=== PATIENT | female | born 1945 | race Caucasian/White ===

== ENCOUNTER → 2017-01-08 | Outpatient (CLI) | payer OTHER ==
[~2017-01-08] MED LIST: CALC600T14 PO; EPP3/2 IM; FISHOIL PO
[2017-01-08 10:25] LABS: ALT/SGPT 21 U/L (12-78); AST/SGOT 16 U/L (15-37); BLOOD UREA NITROGEN 11 mg/dl (7-18); BUN/CREATININE RATIO 14.9 (10-20); CALCIUM 8.8 mg/dl (8.5-10.1); CARBON DIOXIDE 30 mmol/L (21-32); CHLORIDE 107 mmol/L (98-107); CHOLESTEROL 238 mg/dl (0-200); CREATININE 0.76 mg/dl (0.60-1.20); GLUCOSE 94 mg/dl (70-99); POTASSIUM 4.3 mmol/L (3.5-5.1); SODIUM 142 mmol/L (136-145)
[2017-01-08 10:36] LABS: ALB/GLOB RATIO 1.1 (0.9-2); ALKALINE PHOSPHATASE 93 U/L (45-117); CHOLESTEROL/HDL RATIO 4.7; HDL CHOLESTEROL 51 mg/dl; LDL CHOLESTEROL CALCULATED 157 mg/dl; TRIGLYCERIDES 151 mg/dl (0-150); VERY LOW DENSITY LIPOPROT CALC 30 mg/dl
--- NOTE | 2017-01-13 06:15 | CODING QUERY MEDICAL NECESSITY ---
SUPPORTING DIAGNOSIS NEEDED Dr. Marcus, A supporting diagnosis is required for the test/procedure performed on this patient in order for us to be reimbursed by the patient's insurance. Please provide a supporting diagnosis for the following test/procedure listed below next to the test name along with your signature. *If there is no additional diagnosis for this patient that would support the following test/procedure please document that below next to the test/procedure. Test(s)/Procedure(s) that require a supporting diagnosis: * ([id number]) VITAMIN D ASSAY DIAGNOSIS: DATE OF SERVICE: 01/08/17 Provider Signature: Date: Thank you Reed De Oliveira [facility] Information Management Once completed, please kindly fax back to [phone] For questions please call [phone]
== END | disposition home or self-care (01) ==
LOC: C.LAB 08:49
PROVIDERS: ATTEND Internal Medicine
DX: D12.5 Benign neoplasm of sigmoid colon (principal); M85.80 Other specified disorders of bone density and structure, unspecified site

== ENCOUNTER → 2017-01-22 | Outpatient (CLI) | payer OTHER ==
--- NOTE | 2017-01-23 16:39 | MAMMOGRAPHY REPORT ---
BILATERAL DIGITAL SCREENING MAMMOGRAM WITH CAD: 01/22/2017 CLINICAL HISTORY: Routine screening. Patient has no complaints. TECHNIQUE: Current study was also evaluated with a Computer Aided Detection (CAD) system. Bilatera l CC and MLO views were obtained. COMPARISON: Comparison is made to exams dated: 01/15/2016 mammogram, 12/20/2013 mammogram, 12/21/2014 mammogram, 12/14/2012 mammogram, 12/11/2011 mammogram, and 12/10/2010 mammogram - [facility]. BREAST COMPOSITION: The tissue of both breasts is heterogeneously dense, which may obscure small ma sses. FINDINGS: There is a questionable area of architectural distortion seen within the left medial [address] middle depth on the cc view only, which could represent normal overlapping fibroglandular tissue although spot compression tomosynthesis views and possible breast ultrasound are recommended for fur ther evaluation. The remainder of both breasts are stable compared to prior exams, without suspicious masses, calcifi cations, or areas of architectural distortion noted. Bilateral benign-appearing calcifications are not significantly changed. IMPRESSION: ACR BI-RADS CATEGORY 0: INCOMPLETE EVALUATION: NEED ADDITIONAL IMAGING EVALUATION Questionable architectural distortion in the left medial breast, for which additional imaging evalua tion is recommended. The patient will be called to schedule an appointment. Approximately 10% of breast cancers are not detected with mammography. A negative mammographic repor t should not delay biopsy if a clinically suggestive mass is present. Ese Grubbs M.D. /:01/23/2017 16:35:42 Eddy Current Inspector: Caryl EASLEY(Tana)(M), [facility] letter sent: Addl Imaging 0 BI-RADS Code: ACR BI-RADS Category 0: Incomplete Evaluation: Need Additional Imaging Evaluation
== END | disposition home or self-care (01) ==
LOC: C.MAMM 11:17
PROVIDERS: ATTEND Internal Medicine
DX: Z12.31 Encounter for screening mammogram for malignant neoplasm of breast (principal)

== ENCOUNTER → 2017-01-30 | Outpatient (CLI) | payer OTHER ==
--- NOTE | 2017-01-30 13:04 | MAMMOGRAPHY REPORT ---
UNILATERAL LEFT DIGITAL DIAGNOSTIC MAMMOGRAM TOMOSYNTHESIS WITH CAD: 01/30/2017 CLINICAL HISTORY: Callback from screening mammogram for questionable left breast architectural disto rtion. TECHNIQUE: Breast tomosynthesis in addition to standard 2D mammography was performed. Current study was also evaluated with a Computer Aided Detection (CAD) system. Spot compression left CC and full -field left MLO 2-D and tomosynthesis images were obtained. COMPARISON: Comparison is made to exams dated: 01/22/2017 mammogram, 01/15/2016 mammogram, 12/21/2014 mammogram, 12/20/2013 mammogram, 12/14/2012 mammogram, and 12/11/2011 mammogram - [facility]. BREAST COMPOSITION: The tissue of the left breast is heterogeneously dense, which may obscure small masses. FINDINGS: The previously described area of questionable architectural distortion in the left medial breast on the cc view does not persist on the additional images. No suspicious mass or architectura l distortion is noted in this region on the additional spot compression tomosynthesis images. Findi ngs are benign and compatible with normal overlapping fibroglandular tissue. The remainder of the v isualized left breast demonstrates no suspicious masses, calcifications, or areas of architectural d istortion. IMPRESSION: ACR BI-RADS CATEGORY 2: BENIGN The questionable left breast architectural distortion does not persist on the additional views; find ings are benign and compatible with normal fibroglandular tissue. There is no mammographic evidence of malignancy. A 1 year screening mammogram is recommended. The patient has been verbally notified of the results. Approximately 10% of breast cancers are not detected with mammography. A negative mammographic repor t should not delay biopsy if a clinically suggestive mass is present. Ese Grubbs M.D. /:01/30/2017 10:07:37 [employer] Candy Maker Helper: Caryl Bronw, [facility] letter sent: Normal 1/2 BI-RADS Code: ACR BI-RADS Category 2: Benign
== END | disposition home or self-care (01) ==
LOC: C.MAMM 09:44
PROVIDERS: ATTEND Internal Medicine
DX: R92.8 Other abnormal and inconclusive findings on diagnostic imaging of breast (principal)

== ENCOUNTER → 2018-01-08 | Outpatient (CLI) | payer OTHER ==
[2018-01-08 11:20] LABS: ALBUMIN 3.8 gm/dl (3.4-5.0); ALT/SGPT 21 U/L (12-78); AST/SGOT 16 U/L (15-37); BLOOD UREA NITROGEN 12 mg/dl (7-18); CALCIUM 8.8 mg/dl (8.5-10.1); CARBON DIOXIDE 32 mmol/L (21-32); CREATININE 0.73 mg/dl (0.60-1.20); GLUCOSE 87 mg/dl (70-99); SODIUM 139 mmol/L (136-145)
[2018-01-08 11:23] LABS: ALKALINE PHOSPHATASE 88 U/L (45-117); CHOLESTEROL 228 mg/dl (0-200); LDL CHOLESTEROL CALCULATED 153 mg/dl; TOTAL PROTEIN 7.2 gm/dl (6.4-8.2)
== END | disposition home or self-care (01) ==
LOC: C.LABBC 08:36
PROVIDERS: ATTEND Internal Medicine
DX: E78.5 Hyperlipidemia, unspecified (principal)

== ENCOUNTER → 2018-01-26 | Outpatient (CLI) | payer OTHER ==
--- NOTE | 2018-01-27 07:56 | MAMMOGRAPHY REPORT ---
BILATERAL DIGITAL SCREENING MAMMOGRAM TOMOSYNTHESIS WITH CAD: 01/26/2018 CLINICAL HISTORY: Routine screening. Patient has no complaints. There are diffuse bilateral scattered and grouped TECHNIQUE: Breast tomosynthesis in addition to standard 2D mammography was performed. Current study was also evaluated with a Computer Aided Detection (CAD) system. COMPARISON: Comparison is made to exams dated: 01/30/2017 mammogram, 01/22/2017 mammogram, 01/15/2016 ma mmogram, 12/21/2014 mammogram, 12/20/2013 mammogram, and 12/14/2012 mammogram - [facility]. BREAST COMPOSITION: The tissue of both breasts is heterogeneously dense, which may obscure small mas ses. FINDINGS: There are diffuse bilateral scattered and grouped punctate, amorphous and rim calcification s. Minimal vascular calcification as well. No suspicious mass, architectural distortion or cluster of new, suspicious microcalcifications is seen. IMPRESSION: ACR BI-RADS CATEGORY 1: NEGATIVE There is no mammographic evidence of malignancy. A 1 year screening mammogram is recommended. The pa tient will receive written notification of the results. Approximately 10% of breast cancers are not detected with mammography. A negative mammographic report should not delay biopsy if a clinically suggestive mass is present. Miley Zhu M.D. ay/:01/26/2018 16:39:21 [employer] Software Developer: Caryl Brown, [facility] letter sent: Normal 1/2 BI-RADS Code: ACR BI-RADS Category 1: Negative
== END | disposition home or self-care (01) ==
LOC: C.MAMM 10:39
PROVIDERS: ATTEND Internal Medicine
DX: Z12.31 Encounter for screening mammogram for malignant neoplasm of breast (principal)

== ENCOUNTER → 2018-02-11 | Outpatient (CLI) | payer OTHER | END | disposition home or self-care (01) | LOC: C.MAMM 12:38 | PROVIDERS: ATTEND Internal Medicine | DX: M85.89 Other specified disorders of bone density and structure, multiple sites (principal) ==

== ENCOUNTER 2021-03-24 10:13 | Inpatient (IN) ==
[2021-03-24] MEDS ORDERED: ONDANSETRON INJ 2 MG/ML 2 ML VIAL IV STA (10:31)
[2021-03-24] MEDS ORDERED: KETOROLAC TROMETHAMINE 15 MG/ML VIAL IV STA (10:31)
--- NOTE | 2021-03-24 10:37 | Emergency Department Note ---
History of Present Illness General Chief Complaint: Abdominal Pain Stated Complaint: LOWER ABDOMINAL PAIN, FEVER Time Seen by Provider: 03/24/21 10:21 History of Present Illness Provider Complaint: abdominal pain Onset (ago): 3 day(s) Pain Consistency: constant Location: LLQ, RLQ and suprapubic Radiation: none Severity: moderate Maximum Pain Intensity: 7 Current Pain Intensity: 7 Quality: + stabbing, + aching, + sharp and + dull Relieved By: + nothing Exacerbated By: + nothing Context: no foreign travel, no possible food poisoning, no sick contacts, no recent antibiotic use, no recent surgery/procedure and no recent injury Associated Symptoms: + nausea, + chills, + constipation and + dysuria; no vomiting, no diarrhea, no fever, no hematemesis, no hematochezia, no melena, no hematuria, no anorexia, no syncope, no headache, no neck pain, no back pain, no chest pain, no weakness, no breathing difficulty and no numbness Decreased flatus Home Medications Medication Instructions Recorded Confirmed Type calcium citrate 315 mg-vitamin D3 1 tab PO BID 02/13/20 03/24/21 History 5 mcg (200 unit) tablet epinephrine 0.3 mg/0.3 mL 1 ml SUBCUT UD 02/13/20 03/24/21 History injection, auto-injector omega-3 fatty acids 1,000 mg 1,000 mg PO DAILY 02/13/20 03/24/21 History capsule Allergies Allergy/AdvReac Type Severity Reaction Status Date / Time bee venom protein (honey bee) Allergy Mild Unknown Unverified 03/24/21 10:48 No Known Drug Allergies Allergy Unknown Verified 03/24/21 10:48 Past Med/Surg History Medical History (Updated 03/24/21 @ 12:04 by Oseas Wallace) 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 Hyperlipidemia Osteopenia after menopause Polyp of sigmoid colon Surgical History History of total abdominal hysterectomy Family History Mother Alzheimer disease Breast cancer Thyroid disorder Father Hypertension Stroke Brother Hyperlipidemia type II Prostate cancer Polycythemia vera Denies family history of Ovarian cancer Myocardial infarction Colorectal cancer Social History Smoking Status: Never smoker Second Hand Exposure: No; Hx Alcohol Use: Yes Alcohol type: wine and hard liquor Alcohol Intake Frequency: Monthly or Less Hx Substance Use: No Preferred Language: Tajik Communication Ability: Effective Visual Impairment: Limited Hearing Ability: Normal Director Of Medicare Required: No marital status: Current Living Situation: Spouse current occupational status: retired How many Children do You have: 4 Feels Safe at Home: Yes Childhood Exposure to Second-Hand Smoke: Yes caffeine: Yes Dental Care, Regularly: Yes Physical Activity Frequency: 3-4 Times per Week Seatbelt Use: always Sunscreen Use: No Review of Systems A total of 10 systems reviewed and were otherwise negative Physical Exam Vital Signs: Vital Signs - 24 hr 03/24/21 10:16 03/24/21 10:30 03/24/21 11:02 Temperature 37.0 C Temperature Source Temporal Artery Sc an Pulse Rate 100 H Pulse Rate [Apical ] Pulse Rhythm Regular Pulse Strength Normal Respiratory Rate 18 Respiratory Effort / Characteristics Non-Labored Sponta neous Non-Labored Respiratory Depth Normal Normal Respiratory Patter n Regular Blood Pressure 166/69 H Blood Pressure [Le ft Arm] Blood Pressure Beth n 101 Blood Pressure Beth n [Left Arm] Blood Pressure Pos ition Sitting Pulse Oximetry 94 Oxygen Delivery Me thod Room Air Room Air Sepsis Recent Feve r Within 48 Hours No Sepsis New/Unexpla ined Change in Men tono Status N/A Sepsis Action Take n by Nursing No Action Required 03/24/21 12:09 Temperature Temperature Source Pulse Rate Pulse Rate [Apical ] 90 Pulse Rhythm Pulse Strength Respiratory Rate 18 Respiratory Effort / Characteristics Respiratory Depth Respiratory Patter n Blood Pressure Blood Pressure [Le ft Arm] 145/69 H Blood Pressure Beth n Blood Pressure Beth n [Left Arm] 94 Blood Pressure Pos ition Pulse Oximetry 99 Oxygen Delivery Me thod Room Air Sepsis Recent Feve r Within 48 Hours Sepsis New/Unexpla ined Change in Men tono Status Sepsis Action Take n by Nursing Physical Exam: Physical Exam GENERAL: She is oriented to person, place, and time. She appears well-developed and well-nourished. She does not appear distressed. HENT: Exam performed. -Head: Normocephalic and atraumatic. -Right Ear: External ear normal. No mastoid tenderness. -Left Ear: External ear normal. No mastoid tenderness. -Mouth/Throat: The oropharynx is clear and moist. No trismus in the jaw. No dental abscesses or uvula swelling. No oropharyngeal exudate or tonsillar abscesses. EYES: Conjunctivae and EOM are normal. Pupils are equal, round, and reactive to light. Right eye exhibits no discharge. Left eye exhibits no discharge. No scleral icterus. NECK: Normal range of motion. Neck supple. No JVD present. No spinous process tenderness present. No carotid bruit present. No rigidity. No tracheal deviation and normal range of motion present. No Brudzinski's sign and no Kernig's sign noted. CV: Normal rate, regular rhythm, normal heart sounds and intact distal pulses. There is no peripheral edema. Palpable radial pulses bue. PULM/CHEST: Effort normal and breath sounds normal. No respiratory distress. No stridor. She has no wheezes. She has no rales. -Chest Wall: She exhibits no tenderness. ABD: The abdomen is soft. Bowel sounds are normal. She has no distension. No mass is present. There is tenderness to palpation of the left lower quadrant. There is no rebound, no guarding, no Mejía's sign and no tenderness at McBurney's point. Rovsig negative MUSC/SKEL: Normal range of motion. There is no peripheral edema, tenderness or deformity. LYMPH: No cervical adenopathy. NEURO: She is alert and oriented to person, place, and time. She has normal str ength. No cranial nerve deficit or sensory deficit. Coordination and gait normal. GCS eye subscore is 4. GCS verbal subscore is 5. GCS motor subscore is 6. Cerebellar tests wnl. SKIN: Skin is warm and dry. She is not diaphoretic. PSYCH: She has a normal mood and affect. Behavior is normal. Judgment and thought content normal. Course Course 1021: The patient was evaluated in room A12. A complete history and physical exam was performed Cardiac monitoring: An order was placed for continuous cardiac monitoring. The monitor shows a rate of 100 with sinus rhythm 1204: Vital signs stable. Labs show leukocytosis of 20.4. Imaging shows diverticulitis with diverticular abscess in the pelvis near the vaginal cuff. Abscess is less than 5 cm. Discussed case with general surgery Dr. Pozo who states no need for surgical intervention or transfer to treat the patient with antibiotics for the diverticular abscess. He recommends admission to medicine. Dr. Pozo came to bedside and evaluated the patient. Patient is agreement with the plan. Zosyn ordered for the patient. Patient will be admitted to the [facility] Yoli matute. Administered Medications Sodium Chloride (Nss) 500 mls @ 125 mls/hr IV .Q4H JAZMINE Stop: 04/23/21 10:44 Last Admin: 03/24/21 10:58 Dose: 125 mls/hr Documented by: [id number] Piperacillin Sod/Tazobactam Sod (Zosyn) 4.5 gm in 120 mls @ 240 mls/hr IV NOW ONE Stop: 03/24/21 12:18 Last Admin: 03/24/21 12:06 Dose: 240 mls/hr Documented by: [id number] Discontinued Medications Ioversol (Optiray 320 100ml) 88 ml IV ONCE ONE Stop: 03/24/21 10:54 Last Admin: 03/24/21 10:54 Dose: 88 ml Documented by: [id number] Ketorolac Tromethamine (Ketorolac Tromethamine 15 Mg/Ml Vial) 15 mg IV NOW STA Stop: 03/24/21 10:32 Last Admin: 03/24/21 10:58 Dose: 15 mg Documented by: [id number] Ondansetron HCl (Ondansetron Inj 2 Mg/Ml 2 Ml Vial) 4 mg IV NOW STA Stop: 03/24/21 10:32 Last Admin: 03/24/21 10:58 Dose: 4 mg Documented by: [id number] Medical Decision Making Laboratory Data Result diagrams: 03/24/21 10:45 03/24/21 10:45 Lab Results 03/24/21 03/24/21 03/24/21 Range/Units 10:45 10:45 10:45 WBC 20.44 H (4.8-10.8) K/uL RBC 4.16 L (4.2-5.4) M/uL Hgb 11.8 L (12.0-16.0) g/dL Hct 35.9 L (37-47) % MCV 86.3 (80-100) fL MCH 28.4 (25-34) pg MCHC 32.9 (32-36) g/dL RDW Std Deviation 41.2 (36.4-46.3) fL RDW Coeff of Tc 13.1 (11.5-14.5) % Plt Count 405 H (130-400) K/uL MPV 9.1 (7.4-10.4) fL Immature Gran % (Auto) 0.4 % Neut % (Auto) 83.2 % Lymph % (Auto) 7.8 % Summit % (Auto) 8.4 % Eos % (Auto) 0.1 % Baso % (Auto) 0.1 % Neut # (Auto) 17.02 H (1.4-6.5) K/uL Lymph # (Auto) 1.59 (1.2-3.4) K/uL Summit # (Auto) 1.71 H (0.11-0.59) K/uL Eos # (Auto) 0.02 (0-0.5) K/uL Baso # (Auto) 0.02 (0-0.2) K/uL Immature Gran # (Auto) 0.08 H (0.00-0.02) K/uL Sodium 135 L (136-145) mmol/L Potassium 3.7 (3.5-5.1) mmol/L Chloride 101 (98-107) mmol/L Carbon Dioxide 30 (21-32) mmol/L Anion Gap 4.0 (3-11) BUN 10 (7-18) mg/dl Creatinine 0.73 (0.6-1.2) mg/dl Est Cr Clr Drug Dosing 61.9 ml/min Est GFR ( Amer) 92.1 ml/min Est GFR (Non-Af Amer) 79.4 ml/min BUN/Creatinine Ratio 13.7 (10-20) Glucose 143 H (70-99) mg/dl Calcium 8.8 (8.5-10.1) mg/dl Total Bilirubin 0.5 (0.2-1) mg/dl Direct Bilirubin 0.1 (0-0.2) mg/dl AST 11 L (15-37) U/L ALT 16 (12-78) U/L Alkaline Phosphatase 93 (45-117) U/L Total Protein 7.8 (6.4-8.2) gm/dl Albumin 3.3 L (3.4-5.0) gm/dl Lipase 74 (73-393) U/L Urine Color Yellow Urine Appearance Cloudy A (Clear) Urine pH 8.0 H (4.5-7.5) Ur Specific Notrees 1.015 (1.000-1.030) Urine Protein Trace H (Negative) Urine Glucose (UA) Negative (Negative) Urine Ketones Trace H (Negative) Urine Blood 1+ H (Negative) Urine Nitrite Negative (Negative) Urine Bilirubin Negative (Negative) Urine Urobilinogen Negative (Negative) Ur Leukocyte Esterase Negative (Negative) Urine WBC (Auto) 1-5 (0-5) /hpf Urine RBC (Auto) 10-30 H (0-4) /hpf U Hyaline Cast (Auto) 1-5 (0-5) /lpf U Epithel Cells (Auto) >30 H (0-5) /lpf Urine Bacteria (Auto) Negative (Negative) Imaging Data Radiologist's Impression: Abdomen/Pelvis CT 03/24/21 10:26 CT SCAN OF THE ABDOMEN AND PELVIS WITH IV CONTRAST CLINICAL HISTORY: Left lower quadrant abdominal pain. COMPARISON STUDY: No priors. TECHNIQUE: Following the IV administration of 88 cc of Optiray 320, CT scan of the abdomen and pelvis is performed from the lung bases to the proximal femora. Images are reviewed in the axial, sagittal, and coronal planes. IV contrast was administered without complication. A dose lowering technique was utilized adhering to the principles of ALARA. CT DOSE: 445.46 mGy.cm FINDINGS: Lung bases: The heart is mildly enlarged and without pericardial effusion. The lung bases are clear noting bibasilar scarring/atelectasis. Liver: The contrast-enhanced liver is elongated suggesting Stormy's lobe variant anatomy. The liver is normal in contour and attenuation. There is no intrahepatic biliary ductal dilatation. The hepatic veins and portal veins are patent. Gallbladder: Unremarkable. Spleen: Normal in size and attenuation. Pancreas: Unremarkable. Adrenal glands: Unremarkable. Kidneys: The contrast enhanced kidneys are normal in size and without hydr onephrosis. The kidneys enhance symmetrically. Abdominal vasculature: The abdominal aorta is normal in course and caliber noting advanced atherosclerotic calcification. Bowel: There is advanced diverticulosis of left colon. There is significant wall thickening with pericolonic inflammation and fluid involving the sigmoid consistent with acute diverticulitis. There is a 3.1 x 3.9 x 3.1 cm diverticular abscess in the deep pelvis along the inferior aspect of the sigmoid colon and abutting the vaginal cuff. This is best seen on image #303. The appendix is well-visualized and normal. Peritoneum: There is no intraperitoneal free air. Trace free fluid is seen in the pelvis. Lymphadenopathy: None. Pelvic viscera: Thickening of the left posterolateral bladder wall is likely related to adjacent diverticulitis. The uterus is surgically absent. No adnexal lesion is seen. Skeletal structures: The skeletal structures are osteopenic. There is mild to moderate lumbosacral spondylosis. Sclerotic change is noted in the pubic symphysis. No lytic or blastic lesions are seen. IMPRESSION: 1. Advanced colonic diverticulosis with evidence of acute sigmoid diverticulitis. 2. There is a 3.9 cm diverticular abscess in the deep pelvis between the sigmoid colon and the vaginal cuff. 3. No intraperitoneal free air is identified. 4. Left posterolateral bladder wall thickening is likely related to adjacent diverticulitis. 5. Additional findings as above. ACT 112: Negative or not required by law. Electronically signed by: Fredy Faustin M.D. 03/24/2021 11:45 AM MDM Narrative Vital signs stable. Labs show leukocytosis of 20.4. Imaging shows diverticulitis with diverticular abscess in the pelvis near the vaginal cuff. Abscess is less than 5 cm. Discussed case with general surgery Dr. Pozo who states no need for surgical intervention or transfer to treat the patient with antibiotics for the diverticular abscess. He recommends admission to medicine. Dr. Pozo came to bedside and evaluated the patient. Patient is agreement with the plan. Zosyn ordered for the patient. Patient will be admitted to the [facility] Dr. Kent service. Impression & Plan Diverticulitis of intestine with abscess Discharge Plan Visit Data Chief Complaint: Abdominal Pain Stated Complaint: LOWER ABDOMINAL PAIN, FEVER ED Provider: Oseas Wallace Discharge Problem: Diverticulitis of intestine with abscess Patient Disposition: Admitted As Inpatient Forms Stand Alone Forms: My [facility] Prescriptions Prescriptions: No Action calcium citrate-vitamin D3 315-200 mg-unit tablet 1 tab PO BID RF: 0 epinephrine 0.3 mg/0.3 mL auto-injector 1 ml subcut UD RF: 0 omega-3 fatty acids 1,000 mg capsule 1,000 mg PO DAILY RF: 0 Referrals Referrals: Gonzales Marcus MD [Primary Care Provider] - Discharge Problem: Diverticulitis of intestine with abscess Qualifiers: Diverticulitis site: large intestine Diverticulitis bleeding: unspecified blee ding status Qualified Code(s): K57.20 - Diverticulitis of large intestine with perforation and abscess without bleeding
[2021-03-24] MEDS ORDERED: SODIUM CHLORIDE 0.9% 500 ML IV SCH (10:45)
[2021-03-24] MEDS ORDERED: OPTIRAY 320 100ml IV ONE (10:53)
[2021-03-24 10:58] LABS: Basophils # (auto) 0.02 K/uL (0-0.2); Basophils % (auto) 0.1 %; Eosinophils # (auto) 0.02 K/uL (0-0.5); Eosinophils % (auto) 0.1 %; Hematocrit (blood only) 35.9 % (37-47); Hemoglobin 11.8 g/dL (12.0-16.0); Immature Granulocytes # (auto) 0.08 K/uL (0.00-0.02); Immature Granulocytes % (auto) 0.4 %; Lymphocytes # (auto) 1.59 K/uL (1.2-3.4); Lymphocytes % (auto) 7.8 %; Mean Corpuscular Hemoglobin 28.4 pg (25-34); Mean Corpuscular Hgb Conc 32.9 g/dL (32-36); Mean Corpuscular Volume 86.3 fL (80-100); Mean Platelet Volume 9.1 fL (7.4-10.4); Monocytes # (auto) 1.71 K/uL (0.11-0.59); Monocytes % (auto) 8.4 %; Neutrophils # (auto) 17.02 K/uL (1.4-6.5); Neutrophils % (auto) 83.2 %; Platelet Count 405 K/uL (130-400); RDW Coefficient of Variation 13.1 % (11.5-14.5); RDW Standard Deviation 41.2 fL (36.4-46.3); Red Blood Count 4.16 M/uL (4.2-5.4); White Blood Count 20.44 K/uL (4.8-10.8)
[2021-03-24 11:15] LABS: Appearance Urine Cloudy (Clear); Bacteria Urine Automated Negative (Negative); Bilirubin Urine Negative (Negative); Blood Urine 1+ (Negative); Color Urine Yellow; Epithelial Cell Urine Auto >30 /lpf (0-5); Glucose Urine UA Negative (Negative); Ketones Urine Trace (Negative); Leukocyte Esterase Urine Negative (Negative); Nitrite Urine Negative (Negative); Specific Gravity Urine 1.015 (1.000-1.030); Urobilinogen Urine Negative (Negative)
[2021-03-24 11:17] LABS: Est GFR (African American) 92.1 ml/min; Potassium 3.7 mmol/L (3.5-5.1)
[2021-03-24 11:18] LABS: Albumin Level 3.3 gm/dl (3.4-5.0); BUN Creatinine Ratio 13.7 (10-20); Bilirubin Direct 0.1 mg/dl (0-0.2); Calcium 8.8 mg/dl (8.5-10.1); Creatinine Clr Calc Pharmacy 61.9 ml/min; Est GFR (Non-African American) 79.4 ml/min
[2021-03-24 11:20] LABS: Bilirubin,Total 0.5 mg/dl (0.2-1); Total Protein 7.8 gm/dl (6.4-8.2)
--- NOTE | 2021-03-24 11:46 | CT Scan Report ---
CT SCAN OF THE ABDOMEN AND PELVIS WITH IV CONTRAST CLINICAL HISTORY: Left lower quadrant abdominal pain. COMPARISON STUDY: No priors. TECHNIQUE: Following the IV administration of 88 cc of Optiray 320, CT scan of the abdomen and pelvi s is performed from the lung bases to the proximal femora. Images are reviewed in the axial, sagittal , and coronal planes. IV contrast was administered without complication. A dose lowering technique wa s utilized adhering to the principles of ALARA. CT DOSE: 445.46 mGy.cm FINDINGS: Lung bases: The heart is mildly enlarged and without pericardial effusion. The lung bases are clear n oting bibasilar scarring/atelectasis. Liver: The contrast-enhanced liver is elongated suggesting Stormy's lobe variant anatomy. The liver i s normal in contour and attenuation. There is no intrahepatic biliary ductal dilatation. The hepatic veins and portal veins are patent. Gallbladder: Unremarkable. Spleen: Normal in size and attenuation. Pancreas: Unremarkable. Adrenal glands: Unremarkable. Kidneys: The contrast enhanced kidneys are normal in size and without hydronephrosis. The kidneys enh ance symmetrically. Abdominal vasculature: The abdominal aorta is normal in course and caliber noting advanced atheroscle rotic calcification. Bowel: There is advanced diverticulosis of left colon. There is significant wall thickening with theodora colonic inflammation and fluid involving the sigmoid consistent with acute diverticulitis. There is a 3.1 x 3.9 x 3.1 cm diverticular abscess in the deep pelvis along the inferior aspect of the sigmoid colon and abutting the vaginal cuff. This is best seen on image #303. The appendix is well-visualize d and normal. Peritoneum: There is no intraperitoneal free air. Trace free fluid is seen in the pelvis. Lymphadenopathy: None. Pelvic viscera: Thickening of the left posterolateral bladder wall is likely related to adjacent dive rticulitis. The uterus is surgically absent. No adnexal lesion is seen. Skeletal structures: The skeletal structures are osteopenic. There is mild to moderate lumbosacral sp ondylosis. Sclerotic change is noted in the pubic symphysis. No lytic or blastic lesions are seen. IMPRESSION: 1. Advanced colonic diverticulosis with evidence of acute sigmoid diverticulitis. 2. There is a 3.9 cm diverticular abscess in the deep pelvis between the sigmoid colon and the vagina l cuff. 3. No intraperitoneal free air is identified. 4. Left posterolateral bladder wall thickening is likely related to adjacent diverticulitis. 5. Additional findings as above. ACT 112: Negative or not required by law. Electronically signed by: Fredy Faustin M.D. 03/24/2021 11:45 AM
[2021-03-24] MEDS ORDERED: PIPERACILLIN/TAZOBACTAM 4.5 GM/120 ML BAG IV ONE (11:49)
[2021-03-24 12:01] LABS: Protein Urine Trace (Negative)
--- NOTE | 2021-03-24 12:14 | Surgery Consultation ---
Date of Consultation March 24, 2021 Assessment & Plan (1) Diverticulitis of intestine with abscess: Patient with contained diverticular abscess in the pelvis-this is not easily amenable to IR Normal plan of treatment would be admission to the hospital with bowel rest and intravenous antibiotics for likely at least 4 to 5 days possibly longer with the abscess She should be n.p.o. for 48 hours on ice only and then we may consider clear liquids I have discussed this with the patient's daughter Tawnya. We will try to avoid urgent surgery which may require colostomy History of Present Illness History of Present Illness 76-year-old female who is being evaluated in the emergency room for left lower quadrant pain Her white blood cell count is 20,000 Her CAT scan shows evidence of significant diverticulosis and diverticulitis with a 3.9 cm abscess in the deep pelvis between the sigmoid colon and bladder Allergies Allergy/AdvReac Type Severity Reaction Status Date / Time bee venom protein (honey bee) Allergy Mild Unknown Unverified 03/24/21 10:48 No Known Drug Allergies Allergy Unknown Verified 03/24/21 10:48 Home Medications Medication Instructions Recorded Confirmed Type calcium citrate 315 mg-vitamin D3 1 tab PO BID 02/13/20 03/24/21 History 5 mcg (200 unit) tablet epinephrine 0.3 mg/0.3 mL 1 ml SUBCUT UD 02/13/20 03/24/21 History injection, auto-injector omega-3 fatty acids 1,000 mg 1,000 mg PO DAILY 02/13/20 03/24/21 History capsule Patient History Medical History (Updated 03/24/21 @ 12:04 by Oseas Wallace) 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 Hyperlipidemia Osteopenia after menopause Polyp of sigmoid colon Surgical History History of total abdominal hysterectomy Family History Mother Alzheimer disease Breast cancer Thyroid disorder Father Hypertension Stroke Brother Hyperlipidemia type II Prostate cancer Polycythemia vera Denies family history of Ovarian cancer Myocardial infarction Colorectal cancer Social History Smoking Status: Never smoker Second Hand Exposure: No; Hx Alcohol Use: Yes Alcohol type: wine and hard liquor Alcohol Intake Frequency: Monthly or Less Hx Substance Use: No Preferred Language: Samoan Communication Ability: Effective Visual Impairment: Limited Hearing Ability: Normal Crane Hooker Required: No marital status: Current Living Situation: Spouse current occupational status: retired How many Children do You have: 4 Feels Safe at Home: Yes Childhood Exposure to Second-Hand Smoke: Yes caffeine: Yes Dental Care, Regularly: Yes Physical Activity Frequency: 3-4 Times per Week Seatbelt Use: always Sunscreen Use: No Review of Systems Review of Systems: All systems reviewed & are unremarkable except as noted in HPI & below Physical Exam Physical Exam: Patient does have left lower quadrant pain to deep palpation She is not significantly distended Constitutional: well developed; no acute distress Eyes: + anicteric sclerae Respiratory: normal respiratory effort; no respiratory distress Cardiovascular: Rate/Rhythm: + tachycardic Gastrointestinal (Abdomen): Inspection/Auscultation: abdomen not distended Musculoskeletal: Head/Neck/Chest: head atraumatic Skin: no rashes, warm and dry Neurologic: awake Psychiatric: Orientation: alert Results & Data ([facility]) Vital Signs (Past 12 Hours) Vital Signs Temp Pulse Pulse Resp BP BP Pulse Ox 03/24/21 12:09 90 18 145/69 H 99 03/24/21 10:16 37.0 C 100 H 18 166/69 H 94 I did review her CAT scan and laboratories PG Care Time/CCT Total # of Minutes Spent Total Time Spent with Patient: Total time spent is greater than 50% in coordination of care (as documented) at patient's floor/unit and/or counseling patient: Coding Level of Care Code 78776 Inpt Consult Level 4 Diagnoses Diverticulitis of intestine with abscess K57.20 Diverticulitis bleeding: unspecified bleeding status Diverticulitis site: large intestine (1) Diverticulitis of intestine with abscess Diverticulitis bleeding: unspecified bleeding status Diverticulitis site: large intestine Qualified Code(s): K57.20 - Diverticulitis of large intestine with perforation and abscess without bleeding
--- NOTE | 2021-03-24 12:16 | History & Physical Report ---
Date of Service March 24, 2021 Assessment & Plan (1) Diverticulitis of intestine with abscess: Zosyn 3.375g IV Q8H NPO LR @ 125ml/hr Consult general surgery Follow up colonoscopy with Dr Reyes 4-6 weeks after discharge. (2) DVT prophylaxis: Lovenox 40mg SQ daily Admission and Anticipated Discharge Date Admission Date: March 24, 2021 History of Present Illness Chief Complaint: Abdominal pain Primary Care Provider: Gonzales Marcus MD Darline Mathew is a 76-year-old female who presents to the ER with abdominal pain for the past 2 days. Associated fevers and chills, mild constipation. No diarrhea, melena, bright red blood in stool. She has had no episodes of diverticulitis in the past. She reports having a colonoscopy [address] Reyes and found polyps at that time. In the ER CT abdomen pelvis was concerning for 3.9 cm diverticular abscess with acute sigmoid diverticulitis. WBC 20.44. She was given Zosyn 4.5 g. She was seen by surgery and recommended nonsurgical management at this time. She was referred to medicine for admission ongoing management of diverticulitis. Allergies Allergy/AdvReac Type Severity Reaction Status Date / Time bee venom protein (honey bee) Allergy Mild Unknown Unverified 03/24/21 10:48 No Known Drug Allergies Allergy Unknown Verified 03/24/21 10:48 Home Medications Medication Instructions Recorded Confirmed Type calcium citrate 315 mg-vitamin D3 1 tab PO BID 02/13/20 03/24/21 History 5 mcg (200 unit) tablet epinephrine 0.3 mg/0.3 mL 1 ml SUBCUT UD 02/13/20 03/24/21 History injection, auto-injector omega-3 fatty acids 1,000 mg 1,000 mg PO DAILY 02/13/20 03/24/21 History capsule Past Med/Surg History Medical History (Updated 03/24/21 @ 19:48 by Marcus Kent MD) 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 Hyperlipidemia Osteopenia after menopause Polyp of sigmoid colon Surgical History History of total abdominal hysterectomy Family History Mother Alzheimer disease Breast cancer Thyroid disorder Father Hypertension Stroke Brother Hyperlipidemia type II Prostate cancer Polycythemia vera Denies family history of Ovarian cancer Myocardial infarction Colorectal cancer Social History Smoking Status: Never smoker Second Hand Exposure: No; Do You Dip or Chew Tobacco: No; Hx Alcohol Use: No Hx Substance Use: No Preferred Language: Croatian Communication Ability: Effective Visual Impairment: Limited Hearing Ability: Normal Necktie Operator Pockets And Pieces Required: No Beliefs That Will Affect Care: None marital status: Current Living Situation: Spouse Current Living Situation Comment: with parkinsons current occupational status: retired How many Children do You have: 4 Feels Safe at Home: Yes Safety Concerns: Feels Safe At This Time Childhood Exposure to Second-Hand Smoke: Yes caffeine: Yes Dental Care, Regularly: Yes Physical Activity Frequency: 3-4 Times per Week Seatbelt Use: always Sunscreen Use: No Assistive Devices: Glasses Review of Systems Review of Systems: All systems reviewed & are unremarkable except as noted in HPI & below Physical Exam Constitutional: WD/WN, vitals as above Eyes: + anicteric sclerae; normal pupil size ENMT: external ear and nose normal, oropharynx normal Respiratory: normal respiratory effort, lungs clear to auscultation Cardiovascular: RRR, no murmur, no edema Gastrointestinal (Abdomen): Inspection/Auscultation: abdomen normal to inspection; abdomen not distended Percussion/Palpation: + abdomen tender (LLQ pain without rebound tenderness) and abdomen soft; no guarding and abdomen not rigid Musculoskeletal: no cyanosis or clubbing, extremities motor strength 5/5 Skin: no rashes, warm and dry Neurologic: moves all extremities and awake; no focal motor deficits and not confused Psychiatric: A+Ox3, euthymic affect Genitourinary: no CVA tenderness Results & Data Results & Data ([facility]) Vital Signs (Past 12 Hours) Vital Signs Temp Pulse Pulse Resp BP BP Pulse Ox 03/24/21 12:09 90 18 145/69 H 99 03/24/21 10:16 37.0 C 100 H 18 166/[address] SCAN OF THE ABDOMEN AND PELVIS WITH IV CONTRAST IMPRESSION: 1. Advanced colonic diverticulosis with evidence of acute sigmoid diverticulitis. 2. There is a 3.9 cm diverticular abscess in the deep pelvis between the sigmoid colon and the vaginal cuff. 3. No intraperitoneal free air is identified. 4. Left posterolateral bladder wall thickening is likely related to adjacent diverticulitis. 5. Additional findings as above. Medications Administered ER medications given: NSS 500 mL @ 125ml/hr Toradol 50 mg IV Code Status & VTE Plan Code Status Full VTE Prophylaxis Plan VTE Prophylaxis will be ordered: Yes PG Care Time/CCT Total # of Minutes Spent Total Time Spent with Patient: Total time spent is greater than 50% in coordination of care (as documented) at patient's floor/unit and/or counseling patient: Coding Level of Care Code 70516 Initial Inpt Care Lvl 2 Diagnoses Diverticulitis of intestine with abscess K57.20 Diverticulitis bleeding: unspecified bleeding status Diverticulitis site: large intestine DVT prophylaxis Z29.9 (1) Diverticulitis of intestine with abscess Diverticulitis bleeding: unspecified bleeding status Diverticulitis site: large intestine Qualified Code(s): K57.20 - Diverticulitis of large intestine with perforation and abscess without bleeding
[2021-03-24] MEDS ORDERED: PIPERACILL/TAZOBAC CONSULT ACTIVE PRN (14:19)
[2021-03-24] MEDS: LACTATED RINGER'S 1,000 ML IV SCH ×2 (14:50→21:58)
[2021-03-24] MEDS: PIPERACILLIN/TAZOBACTAM 3.375 GM in DEXTROSE 5% 100 ML IV SCH (17:27)
[2021-03-24] MEDS: ENOXAPARIN INJ 40 MG/0.4 ML SYR SQ SCH (21:07)
[2021-03-24] MEDS ORDERED: HYDROmorphone INJ 0.5 MG/0.5 ML SYR IV PRN (21:41)
[2021-03-24] MEDS: ACETAMINOPHEN 1,000 MG/100 ML VIAL IV PRN (22:07)
[2021-03-25] MEDS: PIPERACILLIN/TAZOBACTAM 3.375 GM in DEXTROSE 5% 100 ML IV SCH ×3 (01:20→17:55)
[2021-03-25] MEDS: LACTATED RINGER'S 1,000 ML IV SCH (04:59)
--- NOTE | 2021-03-25 05:21 | Surgery Progress Note ---
Date of Service March 25, 2021 Assessment & Plan (1) Diverticulitis of intestine with abscess: Patient has been admitted on the hospitalist service. Care will continue as follows: Continue analgesics Continue bowel rest with n.p.o. status allowing only ice chips. Continue antibiotics. She is currently receiving Zosyn day #2 Continue to follow serial labs. Labs for this morning are currently pending We will continue to monitor the patient's progress. If clinical improvement is noted over the next several days you may consider advancing her diet beginning with clear liquids. Lovenox is in place for DVT prevention Admission and Anticipated Discharge Date Admission Date: March 24, 2021 Supervising Physician Co-Signing Physician Notes Patient's vital signs are stable and she is feeling better Continued limited p.o. with ice only today Continue IV antibiotics No other changes in surgical management Subjective Patient is resting comfortably in bed. She denies any fevers, shakes, chills. She denies any nausea or vomiting. She does note some pain in the left lower quadrant of her abdomen but notes that this is improved compared to what was noted at time of admission. Physical Exam Gastrointestinal (Abdomen): Abdomen is soft and nondistended. Bowel sounds are hypoactive. There is no rebound tenderness or guarding. Palpation is noted with pain in the left lower quadrant. Results & Data ([facility]) Vital Signs (Past 12 Hours) Vital Signs Temp Pulse Resp BP Pulse Ox 03/24/21 22:00 37.1 C 89 16 157/72 H 94 PG Care Time/CCT Total # of Minutes Spent Total Time Spent with Patient: Total time spent is greater than 50% in coordination of care (as documented) at patient's floor/unit and/or counseling patient: Coding Level of Care Code 68572 Subseq Hosp Care Lvl 1 Diagnoses Diverticulitis of intestine with abscess K57.20 Diverticulitis bleeding: unspecified bleeding status Diverticulitis site: large intestine (1) Diverticulitis of intestine with abscess Diverticulitis bleeding: unspecified bleeding status Diverticulitis site: large intestine Qualified Code(s): K57.20 - Diverticulitis of large intestine with perforation and abscess without bleeding
[2021-03-25 05:41] LABS: Basophils # (auto) 0.03 K/uL (0-0.2); Basophils % (auto) 0.2 %; Eosinophils # (auto) 0.06 K/uL (0-0.5); Eosinophils % (auto) 0.4 %; Hematocrit (blood only) 30.7 % (37-47); Hemoglobin 9.9 g/dL (12.0-16.0); Immature Granulocytes # (auto) 0.04 K/uL (0.00-0.02); Immature Granulocytes % (auto) 0.2 %; Lymphocytes # (auto) 2.49 K/uL (1.2-3.4); Lymphocytes % (auto) 15.4 %; Mean Corpuscular Hemoglobin 28.6 pg (25-34); Mean Corpuscular Hgb Conc 32.2 g/dL (32-36); Mean Corpuscular Volume 88.7 fL (80-100); Mean Platelet Volume 8.9 fL (7.4-10.4); Monocytes # (auto) 1.27 K/uL (0.11-0.59); Monocytes % (auto) 7.9 %; Neutrophils # (auto) 12.26 K/uL (1.4-6.5); Neutrophils % (auto) 75.9 %; Platelet Count 360 K/uL (130-400); RDW Coefficient of Variation 13.1 % (11.5-14.5); RDW Standard Deviation 42.6 fL (36.4-46.3); Red Blood Count 3.46 M/uL (4.2-5.4); White Blood Count 16.15 K/uL (4.8-10.8)
[2021-03-25 06:12] LABS: BUN Creatinine Ratio 14.7 (10-20); Calcium 8.2 mg/dl (8.5-10.1); Creatinine Clr Calc Pharmacy 75.3 ml/min; Est GFR (African American) 101.9 ml/min; Est GFR (Non-African American) 87.9 ml/min; Potassium 3.8 mmol/L (3.5-5.1)
--- NOTE | 2021-03-25 08:14 | Hospitalist Progress Note ---
Date of Service March 25, 2021 Assessment & Plan (1) Diverticulitis of intestine with abscess: * CT with diverticulitis with 3.9cm sigmoid abscess * Zosyn 3.375g IV Q8H (day 2 of therapy) * WBC 20.4k --> 16.1k. Afebrile. No blood cx drawn * Plt 405-> 360. * NPO except sips/chips * Acetaminophen, morphine IV prn pain * Zofran IV prn nausea/vomiting * LR @ 125ml/hr -- will decrease to 100cc/hr and will add 20mew KCl * Consult general surgery -- allowing ice chips today. * --if improvement in next couple of days, will re-institute diet and advance as tolerated * Daily labs/electrolyte replacement as needed * Follow up colonoscopy with Dr Reyes 4-6 weeks after discharge. (2) Leukocytosis: * Improving * See above, Zosyn (3) Osteopenia after menopause: * Noted * Resume calcium citrate once taking PO (4) DVT prophylaxis: * Lovenox 40mg SQ daily Dispo: continued inpatient stay Admission and Anticipated Discharge Date Admission Date: March 24, 2021 Subjective Patient evaluated this morning patient evaluated this morning. She states her abdominal pain is resolved and she is not having any at the moment. She denies any nausea or vomiting. She had small bowel movement this morning, small, formed brown. She is afebrile. Was seen by general surgery this morning and okay to get ice chips. Discussed abscess on imaging and possible need for IR refractory antibiotic therapy. Discussed monitoring her for today and possible starting clear liquids in the morning if abdominal pain continues to be resolved and condition improves with the hopes of eventual advancement to full liquid and then low fiber which will continue for 2 weeks. She states prior colonoscopy with Dr. Reyes and is due for repeatwill need to have one done 6 to 8 weeks post current episode. No fever, chills, chest pain, shortness of breath, abdominal pain, nausea, or v omiting, dysuria at this time/ Questions concerns addressed Review of Systems Review of Systems: All systems reviewed & are unremarkable except as noted in HPI & below Physical Exam Constitutional: WD/WN, vitals as above Eyes: + anicteric sclerae; normal pupil size ENMT: external ear and nose normal, oropharynx normal Neck: normal visual inspection and trachea midline Respiratory: normal respiratory effort, lungs clear to auscultation Cardiovascular: RRR, no murmur, no edema Gastrointestinal (Abdomen): Inspection/Auscultation: abdomen normal to inspection; abdomen not distended Percussion/Palpation: abdomen soft; abdomen nontender, no guarding and abdomen not rigid Musculoskeletal: no cyanosis or clubbing, extremities motor strength 5/5 Skin: no rashes, warm and dry Neurologic: moves all extremities and awake; no focal motor deficits and not confused Psychiatric: A+Ox3, euthymic affect Genitourinary: no CVA tenderness Results & Data Results & Data ([facility]) Vital Signs (Past 12 Hours) Vital Signs Temp Pulse Resp BP Pulse Ox 03/25/21 07:25 36.8 C 87 18 135/74 93 03/24/21 22:00 37.1 C 89 16 157/72 H 94 Laboratory Results 03/25/21 03/25/21 03/24/21 Range/Units 05:22 05:22 12:10 WBC 16.15 H (4.8-10.8) K/uL RBC 3.46 L (4.2-5.4) M/uL Hgb 9.9 L (12.0-16.0) g/dL Hct 30.7 L (37-47) % MCV 88.7 (80-100) fL MCH 28.6 (25-34) pg MCHC 32.2 (32-36) g/dL RDW Std Deviation 42.6 (36.4-46.3) fL RDW Coeff of Tc 13.1 (11.5-14.5) % Plt Count 360 (130-400) K/uL MPV 8.9 (7.4-10.4) fL Immature Gran % (Auto) 0.2 % Neut % (Auto) 75.9 % Lymph % (Auto) 15.4 % [place]man % (Auto) 7.9 % Eos % (Auto) 0.4 % Baso % (Auto) 0.2 % Neut # (Auto) 12.26 H (1.4-6.5) K/uL Lymph # (Auto) 2.49 (1.2-3.4) K/uL Kaufman # (Auto) 1.27 H (0.11-0.59) K/uL Eos # (Auto) 0.06 (0-0.5) K/uL Baso # (Auto) 0.03 (0-0.2) K/uL Immature Gran # (Auto) 0.04 H (0.00-0.02) K/uL Sodium 138 (136-145) mmol/L Potassium 3.8 (3.5-5.1) mmol/L Chloride 105 (98-107) mmol/L Carbon Dioxide 30 (21-32) mmol/L Anion Gap 3.0 (3-11) BUN 9 (7-18) mg/dl Creatinine 0.60 (0.6-1.2) mg/dl Est Cr Clr Drug Dosing 75.3 ml/min Est GFR ( Amer) 101.9 ml/min Est GFR (Non-Af Amer) 87.9 ml/min BUN/Creatinine Ratio 14.7 (10-20) Glucose 94 (70-99) mg/dl Calcium 8.2 L (8.5-10.1) mg/dl Total Bilirubin (0.2-1) mg/dl Direct Bilirubin (0-0.2) mg/dl AST (15-37) U/L ALT (12-78) U/L Alkaline Phosphatase (45-117) U/L Total Protein (6.4-8.2) gm/dl Albumin (3.4-5.0) gm/dl Lipase (73-393) U/L Urine Color Urine Appearance (Clear) Urine pH (4.5-7.5) Ur Specific [place] (1.000-1.030) Urine Protein (Negative) Urine Glucose (UA) (Negative) Urine Ketones (Negative) Urine Blood (Negative) Urine Nitrite (Negative) Urine Bilirubin (Negative) Urine Urobilinogen (Negative) Ur Leukocyte Esterase (Negative) Urine WBC (Auto) (0-5) /hpf Urine RBC (Auto) (0-4) /hpf U Hyaline Cast (Auto) (0-5) /lpf U Epithel Cells (Auto) (0-5) /lpf Urine Bacteria (Auto) (Negative) COVID-19 Eval Order SARS-CoV-2 (PCR) NEGATIVE (Negative) 03/24/21 03/24/21 03/24/21 Range/Units 12:10 10:45 10:45 WBC (4.8-10.8) K/uL RBC (4.2-5.4) M/uL Hgb (12.0-16.0) g/dL Hct (37-47) % MCV (80-100) fL MCH (25-34) pg MCHC (32-36) g/dL RDW Std Deviation (36.4-46.3) fL RDW Coeff of Tc (11.5-14.5) % Plt Count (130-400) K/uL MPV (7.4-10.4) fL Immature Gran % (Auto) % Neut % (Auto) % Lymph % (Auto) % [place]aufman % (Auto) % Eos % (Auto) % Baso % (Auto) % Neut # (Auto) (1.4-6.5) K/uL Lymph # (Auto) (1.2-3.4) K/uL [place] # (Auto) (0.11-0.59) K/uL Eos # (Auto) (0-0.5) K/uL Baso # (Auto) (0-0.2) K/uL Immature Gran # (Auto) (0.00-0.02) K/uL Sodium 135 L (136-145) mmol/L Potassium 3.7 (3.5-5.1) mmol/L Chloride 101 (98-107) mmol/L Carbon Dioxide 30 (21-32) mmol/L Anion Gap 4.0 (3-11) BUN 10 (7-18) mg/dl Creatinine 0.73 (0.6-1.2) mg/dl Est Cr Clr Drug Dosing 61.9 ml/min Est GFR ( Amer) 92.1 ml/min Est GFR (Non-Af Amer) 79.4 ml/min BUN/Creatinine Ratio 13.7 (10-20) Glucose 143 H (70-99) mg/dl Calcium 8.8 (8.5-10.1) mg/dl Total Bilirubin 0.5 (0.2-1) mg/dl Direct Bilirubin 0.1 (0-0.2) mg/dl AST 11 L (15-37) U/L ALT 16 (12-78) U/L Alkaline Phosphatase 93 (45-117) U/L Total Protein 7.8 (6.4-8.2) gm/dl Albumin 3.3 L (3.4-5.0) gm/dl Lipase 74 (73-393) U/L Urine Color Yellow Urine Appearance Cloudy A (Clear) Urine pH 8.0 H (4.5-7.5) Ur Specific [place] 1.015 (1.000-1.030) Urine Protein Trace H (Negative) Urine Glucose (UA) Negative (Negative) Urine Ketones Trace H (Negative) Urine Blood 1+ H (Negative) Urine Nitrite Negative (Negative) Urine Bilirubin Negative (Negative) Urine Urobilinogen Negative (Negative) Ur Leukocyte Esterase Negative (Negative) Urine WBC (Auto) 1-5 (0-5) /hpf Urine RBC (Auto) 10-30 H (0-4) /hpf U Hyaline Cast (Auto) 1-5 (0-5) /lpf U Epithel Cells (Auto) >30 H (0-5) /lpf Urine Bacteria (Auto) Negative (Negative) COVID-19 Eval Order Covid19 at [facility] SARS-CoV-2 (PCR) (Negative) 03/24/21 Range/Units 10:45 WBC 20.44 H (4.8-10.8) K/uL RBC 4.16 L (4.2-5.4) M/uL Hgb 11.8 L (12.0-16.0) g/dL Hct 35.9 L (37-47) % MCV 86.3 (80-100) fL MCH 28.4 (25-34) pg MCHC 32.9 (32-36) g/dL RDW Std Deviation 41.2 (36.4-46.3) fL RDW Coeff of Tc 13.1 (11.5-14.5) % Plt Count 405 H (130-400) K/uL MPV 9.1 (7.4-10.4) fL Immature Gran % (Auto) 0.4 % Neut % (Auto) 83.2 % Lymph % (Auto) 7.8 % Kaufman % (Auto) 8.4 % Eos % (Auto) 0.1 % Baso % (Auto) 0.1 % Neut # (Auto) 17.02 H (1.4-6.5) K/uL Lymph # (Auto) 1.59 (1.2-3.4) K/uL [place] # (Auto) 1.71 H (0.11-0.59) K/uL Eos # (Auto) 0.02 (0-0.5) K/uL Baso # (Auto) 0.02 (0-0.2) K/uL Immature Gran # (Auto) 0.08 H (0.00-0.02) K/uL Sodium (136-145) mmol/L Potassium (3.5-5.1) mmol/L Chloride (98-107) mmol/L Carbon Dioxide (21-32) mmol/L Anion Gap (3-11) BUN (7-18) mg/dl Creatinine (0.6-1.2) mg/dl Est Cr Clr Drug Dosing ml/min Est GFR ( Amer) ml/min Est GFR (Non-Af Amer) ml/min BUN/Creatinine Ratio (10-20) Glucose (70-99) mg/dl Calcium (8.5-10.1) mg/dl Total Bilirubin (0.2-1) mg/dl Direct Bilirubin (0-0.2) mg/dl AST (15-37) U/L ALT (12-78) U/L Alkaline Phosphatase (45-117) U/L Total Protein (6.4-8.2) gm/dl Albumin (3.4-5.0) gm/dl Lipase (73-393) U/L Urine Color Urine Appearance (Clear) Urine pH (4.5-7.5) Ur Specific [place] (1.000-1.030) Urine Protein (Negative) Urine Glucose (UA) (Negative) Urine Ketones (Negative) Urine Blood (Negative) Urine Nitrite (Negative) Urine Bilirubin (Negative) Urine Urobilinogen (Negative) Ur Leukocyte Esterase (Negative) Urine WBC (Auto) (0-5) /hpf Urine RBC (Auto) (0-4) /hpf U Hyaline Cast (Auto) (0-5) /lpf U Epithel Cells (Auto) (0-5) /lpf Urine Bacteria (Auto) (Negative) COVID-19 Eval Order SARS-CoV-2 (PCR) (Negative) Diagnostic Findings Abdomen/Pelvis CT 03/24/21 10:26 CT SCAN OF THE ABDOMEN AND PELVIS WITH IV CONTRAST CLINICAL HISTORY: Left lower quadrant abdominal pain. COMPARISON STUDY: No priors. TECHNIQUE: Following the IV administration of 88 cc of Optiray 320, CT scan of the abdomen and pelvis is performed from the lung bases to the proximal femora. Images are reviewed in the axial, sagittal, and coronal planes. IV contrast was administered without complication. A dose lowering technique was utilized adhering to the principles of ALARA. CT DOSE: 445.46 mGy.cm FINDINGS: Lung bases: The heart is mildly enlarged and without pericardial effusion. The lung bases are clear noting bibasilar scarring/atelectasis. Liver: The contrast-enhanced liver is elongated suggesting Stormy's lobe variant anatomy. The liver is normal in contour and attenuation. There is no intrahepatic biliary ductal dilatation. The hepatic veins and portal veins are patent. Gallbladder: Unremarkable. Spleen: Normal in size and attenuation. Pancreas: Unremarkable. Adrenal glands: Unremarkable. Kidneys: The contrast enhanced kidneys are normal in size and without hydronephrosis. The kidneys enhance symmetrically. Abdominal vasculature: The abdominal aorta is normal in course and caliber noting advanced atherosclerotic calcification. Bowel: There is advanced diverticulosis of left colon. There is significant wall thickening with pericolonic inflammation and fluid involving the sigmoid consistent with acute diverticulitis. There is a 3.1 x 3.9 x 3.1 cm diverticular abscess in the deep pelvis along the inferior aspect of the sigmoid colon and abutting the vaginal cuff. This is best seen on image #303. The appendix is well-visualized and normal. Peritoneum: There is no intraperitoneal free air. Trace free fluid is seen in the pelvis. Lymphadenopathy: None. Pelvic viscera: Thickening of the left posterolateral bladder wall is likely related to adjacent diverticulitis. The uterus is surgically absent. No adnexal lesion is seen. Skeletal structures: The skeletal structures are osteopenic. There is mild to moderate lumbosacral spondylosis. Sclerotic change is noted in the pubic symphysis. No lytic or blastic lesions are seen. IMPRESSION: 1. Advanced colonic diverticulosis with evidence of acute sigmoid diverticulitis. 2. There is a 3.9 cm diverticular abscess in the deep pelvis between the sigmoid colon and the vaginal cuff. 3. No intraperitoneal free air is identified. 4. Left posterolateral bladder wall thickening is likely related to adjacent diverticulitis. 5. Additional findings as above. ACT 112: Negative or not required by law. Electronically signed by: Fredy Faustin M.D. 03/24/2021 11:45 AM PG Care Time/CCT Total # of Minutes Spent Total Time Spent with Patient: Total time spent is greater than 50% in coordination of care (as documented) at patient's floor/unit and/or counseling patient: Coding Level of Care Code 27183 Subseq Hosp Care Lvl 3 Diagnoses Diverticulitis of intestine with abscess K57.20 Diverticulitis bleeding: unspecified bleeding status Diverticulitis site: large intestine Leukocytosis D72.829 Osteopenia after menopause M85.80 DVT prophylaxis Z29.9 (1) Diverticulitis of intestine with abscess Diverticulitis bleeding: unspecified bleeding status Diverticulitis site: large intestine Qualified Code(s): K57.20 - Diverticulitis of large intestine with perforation and abscess without bleeding
[2021-03-25] MEDS: ACETAMINOPHEN 1,000 MG/100 ML VIAL IV PRN ×2 (08:21→17:59)
--- NOTE | 2021-03-25 08:54 | Hospitalist Progress Note ---
Date of Service March 25, 2021 Assessment & Plan (1) Diverticulitis of intestine with abscess: CT with diverticulitis with 3.9cm sigmoid abscess Zosyn 3.375g IV Q8H WBC 20.4k --> 16.1k. Afebrile. No blood cx drawn Plt 405-> 360. NPO LR @ 125ml/hr Consult general surgery -- allowing ice chips today. if improvement in next couple of days, will re-institute diet and advance as tolerated Daily labs/electrolyte replacement as needed Follow up colonoscopy with Dr Reyes 4-6 weeks after discharge. (2) DVT prophylaxis: Lovenox 40mg SQ daily Admission and Anticipated Discharge Date Admission Date: March 24, 2021 Results & Data Results & Data ([facility]) Vital Signs (Past 12 Hours) Vital Signs Temp Pulse Resp BP Pulse Ox 03/25/21 07:25 98.2 F 87 18 135/74 93 03/24/21 22:00 98.8 F 89 16 157/72 H 94 PG Care Time/CCT Total # of Minutes Spent Total Time Spent with Patient: Total time spent is greater than 50% in coordination of care (as documented) at patient's floor/unit and/or counseling patient: Coding Diagnoses Diverticulitis of intestine with abscess K57.20 Diverticulitis bleeding: unspecified bleeding status Diverticulitis site: large intestine DVT prophylaxis Z29.9 (1) Diverticulitis of intestine with abscess Diverticulitis bleeding: unspecified bleeding status Diverticulitis site: large intestine Qualified Code(s): K57.20 - Diverticulitis of large intestine with perforation and abscess without bleeding
[2021-03-25] MEDS ORDERED: ONDANSETRON INJ 2 MG/ML 2 ML VIAL IV PRN (11:30)
[2021-03-25] MEDS: POTASSIUM CHLORIDE 20 MEQ in LACTATED RINGER'S 1,000 ML IV SCH ×2 (13:02→23:12)
[2021-03-25] MEDS ORDERED: hydrALAZINE HCL 20 MG/ML VIAL IV STA (18:09)
[2021-03-25] MEDS: ENOXAPARIN INJ 40 MG/0.4 ML SYR SQ SCH (21:52)
[2021-03-26] MEDS: PIPERACILLIN/TAZOBACTAM 3.375 GM in DEXTROSE 5% 100 ML IV SCH ×3 (01:56→17:50)
[2021-03-26 05:28] LABS: Basophils # (auto) 0.02 K/uL (0-0.2); Basophils % (auto) 0.1 %; Eosinophils # (auto) 0.06 K/uL (0-0.5); Eosinophils % (auto) 0.4 %; Hematocrit (blood only) 31.2 % (37-47); Hemoglobin 10.2 g/dL (12.0-16.0); Immature Granulocytes # (auto) 0.11 K/uL (0.00-0.02); Immature Granulocytes % (auto) 0.7 %; Lymphocytes % (auto) 12.5 %; Mean Corpuscular Hemoglobin 28.3 pg (25-34); Mean Corpuscular Hgb Conc 32.7 g/dL (32-36); Mean Corpuscular Volume 86.7 fL (80-100); Mean Platelet Volume 8.9 fL (7.4-10.4); Monocytes # (auto) 1.04 K/uL (0.11-0.59); Monocytes % (auto) 6.5 %; Neutrophils # (auto) 12.77 K/uL (1.4-6.5); Neutrophils % (auto) 79.8 %; Platelet Count 367 K/uL (130-400); RDW Coefficient of Variation 13.1 % (11.5-14.5)
[2021-03-26 06:07] LABS: Albumin Level 2.7 gm/dl (3.4-5.0); BUN Creatinine Ratio 16.5 (10-20); Calcium 8.7 mg/dl (8.5-10.1); Creatinine Clr Calc Pharmacy 110.2 ml/min; Est GFR (African American) 115.5 ml/min; Est GFR (Non-African American) 99.7 ml/min; Magnesium 1.7 mg/dl (1.8-2.4); Potassium 3.7 mmol/L (3.5-5.1)
[2021-03-26 06:10] LABS: Albumin Globulin Ratio 0.7 (0.9-2); Bilirubin,Total 0.6 mg/dl (0.2-1); Globulin 3.9 gm/dl (2.5-4.0); Total Protein 6.6 gm/dl (6.4-8.2)
[2021-03-26] MEDS: MAGNESIUM SULFATE / D5W 1 GM/100 ML BAG IV SCH ×2 (07:11→08:53)
[2021-03-26] MEDS: ACETAMINOPHEN 1,000 MG/100 ML VIAL IV PRN (07:16)
--- NOTE | 2021-03-26 07:53 | Surgery Progress Note ---
Date of Service March 26, 2021 Assessment & Plan (1) Diverticulitis of intestine with abscess: WBC 16,000 but clinically improved consider starting on liquids, will discuss with Dr. Sánchez Pozo- will begin clear liquids- do not advance for 1-2 days Admission and Anticipated Discharge Date Admission Date: March 24, 2021 Subjective denies abd pain, formed BM this AM, no fever/chills Physical Exam Gastrointestinal (Abdomen): Inspection/Auscultation: abdomen not distended Percussion/Palpation: abdomen soft; abdomen nontender Results & Data ([facility]) Vital Signs (Past 12 Hours) Vital Signs Temp Pulse Resp BP BP Pulse Ox 03/26/21 07:23 36.5 C 85 14 178/81 H 169/78 H 93 03/25/21 22:45 36.7 C 84 16 155/77 H 92 PG Care Time/CCT Total # of Minutes Spent Total Time Spent with Patient: Total time spent is greater than 50% in coordinat ion of care (as documented) at patient's floor/unit and/or counseling patient: Coding Level of Care Code 20427 Subseq Hosp Care Lvl 1 Diagnoses Diverticulitis of intestine with abscess K57.20 Diverticulitis bleeding: unspecified bleeding status Diverticulitis site: large intestine (1) Diverticulitis of intestine with abscess Diverticulitis bleeding: unspecified bleeding status Diverticulitis site: large intestine Qualified Code(s): K57.20 - Diverticulitis of large intestine with perforation and abscess without bleeding
[2021-03-26] MEDS ORDERED: hydrALAZINE HCL 20 MG/ML VIAL IV PRN (08:12)
--- NOTE | 2021-03-26 08:16 | Hospitalist Progress Note ---
Date of Service March 26, 2021 Assessment & Plan (1) Diverticulitis of intestine with abscess: * CT with diverticulitis with 3.9cm sigmoid abscess * Zosyn 3.375g IV Q8H (day 2 of therapy) * WBC 20.4k --> 16.1k -->16k. Afebrile. No blood cx drawn on admission * Plt 405-> 367. * Acetaminophen, morphine IV prn pain * Zofran IV prn nausea/vomiting * Hydralazine prn HTN (consider low dose PO amlodipine/BB at d/c if continues elevated with pain controlled, although did have a headache this morning) * LR + 20K @ 100cc/hr * Added pepcid IV BID * Consulted general surgery -- * --advancing to clear liquid diet today and would not advance for another 1-2 days * Electrolyte replacement as needed: Mag 1.7 -- IV replacement 03/26 * Labs in AM * Follow up colonoscopy with Dr Reyes 4-6 weeks after discharge. (2) Leukocytosis: * Improving, but about the same today * No pain, afebrile * Continues on Zosyn (3) Osteopenia after menopause: * Noted * Resume calcium citrate once taking PO (4) DVT prophylaxis: * Lovenox 40mg SQ daily Dispo: continued inpatient stay Admission and Anticipated Discharge Date Admission Date: March 24, 2021 Subjective Patient evaluated this morning. Doing well. Tolerated clear liquids this morning without any worsening abd pain/nausea or vomiting. Slight headache with elevated pressures this morning, relieved with compazine and repeat BP 152/76. Discussed IVF decreased as well. No visual changes or unusualness to the headache compared to prior headaches. She has had two loose stools this morning. Some reflux/belching improved with sitting up and will order GI prophylaxis. No fever, chills, chest pain, shortness of breath, abd pain, nausea, vomiting or dysuria. Review of Systems Review of Systems: All systems reviewed & are unremarkable except as noted in HPI & below Physical Exam Constitutional: WD/WN, vitals as above Eyes: + anicteric sclerae; normal pupil size ENMT: external ear and nose normal, oropharynx normal Neck: normal visual inspection and trachea midline Respiratory: normal respiratory effort, lungs clear to auscultation Cardiovascular: RRR, no murmur, no edema Gastrointestinal (Abdomen): Inspection/Auscultation: abdomen normal to inspection; abdomen not distended Percussion/Palpation: abdomen soft; abdomen nontender, no guarding and abdomen not rigid Musculoskeletal: no cyanosis or clubbing, extremities motor strength 5/5 Skin: no rashes, warm and dry Neurologic: moves all extremities and awake; no focal motor deficits and not confused Psychiatric: A+Ox3, euthymic affect Genitourinary: no CVA tenderness Results & Data Results & Data ([facility]) Vital Signs (Past 12 Hours) Vital Signs Temp Pulse Resp BP BP Pulse Ox 03/26/21 07:23 36.5 C 85 14 178/81 H 169/78 H 93 03/25/21 22:45 36.7 C 84 16 155/77 H 92 Laboratory Results 03/26/21 03/26/21 03/25/21 Range/Units 05:15 05:15 05:22 WBC 16.00 H (4.8-10.8) K/uL RBC 3.60 L (4.2-5.4) M/uL Hgb 10.2 L (12.0-16.0) g/dL Hct 31.2 L (37-47) % MCV 86.7 (80-100) fL MCH 28.3 (25-34) pg MCHC 32.7 (32-36) g/dL RDW Std Deviation 42.0 (36.4-46.3) fL RDW Coeff of Tc 13.1 (11.5-14.5) % Plt Count 367 (130-400) K/uL MPV 8.9 (7.4-10.4) fL Immature Gran % (Auto) 0.7 % Neut % (Auto) 79.8 % Lymph % (Auto) 12.5 % [place] % (Auto) 6.5 % Eos % (Auto) 0.4 % Baso % (Auto) 0.1 % Neut # (Auto) 12.77 H (1.4-6.5) K/uL Lymph # (Auto) 2.00 (1.2-3.4) K/uL [place] # (Auto) 1.04 H (0.11-0.59) K/uL Eos # (Auto) 0.06 (0-0.5) K/uL Baso # (Auto) 0.02 (0-0.2) K/uL Immature Gran # (Auto) 0.11 H (0.00-0.02) K/uL Sodium 136 (136-145) mmol/L Potassium 3.7 (3.5-5.1) mmol/L Chloride 104 (98-107) mmol/L Carbon Dioxide 26 (21-32) mmol/L Anion Gap 6.0 (3-11) BUN 7 (7-18) mg/dl Creatinine 0.41 L (0.6-1.2) mg/dl Est Cr Clr Drug Dosing 110.2 ml/min Est GFR ( Amer) 115.5 ml/min Est GFR (Non-Af Amer) 99.7 ml/min BUN/Creatinine Ratio 16.5 (10-20) Glucose 85 (70-99) mg/dl Calcium 8.7 (8.5-10.1) mg/dl Magnesium 1.7 L 2.1 (1.8-2.4) mg/dl Total Bilirubin 0.6 (0.2-1) mg/dl AST 9 L (15-37) U/L ALT 12 (12-78) U/L Alkaline Phosphatase 78 (45-117) U/L Total Protein 6.6 (6.4-8.2) gm/dl Albumin 2.7 L (3.4-5.0) gm/dl Globulin 3.9 (2.5-4.0) gm/dl Albumin/Globulin Ratio 0.7 L (0.9-2) PG Care Time/CCT Total # of Minutes Spent Total Time Spent with Patient: Total time spent is greater than 50% in coordination of care (as documented) at patient's floor/unit and/or counseling patient: Coding Level of Care Code 23051 Subseq Hosp Care Lvl 3 Diagnoses Diverticulitis of intestine with abscess K57.20 Diverticulitis bleeding: unspecified bleeding status Diverticulitis site: large intestine Leukocytosis D72.829 Osteopenia after menopause M85.80 DVT prophylaxis Z29.9 (1) Diverticulitis of intestine with abscess Diverticulitis bleeding: unspecified bleeding status Diverticulitis site: large intestine Qualified Code(s): K57.20 - Diverticulitis of large intestine with perforation and abscess without bleeding
[2021-03-26] MEDS: POTASSIUM CHLORIDE 20 MEQ in LACTATED RINGER'S 1,000 ML IV SCH ×2 (08:53→17:50)
[2021-03-26] MEDS ORDERED: PROCHLORPERAZINE 5 MG in SYRINGE 4 ML IV ONE (09:13)
[2021-03-26] MEDS: ENOXAPARIN INJ 40 MG/0.4 ML SYR SQ SCH (20:19)
[2021-03-26] MEDS: FAMOTIDINE 20 MG in SYRINGE 3 ML IV SCH (20:19)
[2021-03-27] MEDS: PIPERACILLIN/TAZOBACTAM 3.375 GM in DEXTROSE 5% 100 ML IV SCH ×3 (02:13→17:28)
[2021-03-27] MEDS: POTASSIUM CHLORIDE 20 MEQ in LACTATED RINGER'S 1,000 ML IV SCH (07:07)
[2021-03-27 07:17] LABS: Basophils # (auto) 0.03 K/uL (0-0.2); Basophils % (auto) 0.2 %; Eosinophils # (auto) 0.13 K/uL (0-0.5); Hemoglobin 11.2 g/dL (12.0-16.0); Immature Granulocytes # (auto) 0.11 K/uL (0.00-0.02); Immature Granulocytes % (auto) 0.9 %; Lymphocytes # (auto) 2.31 K/uL (1.2-3.4); Lymphocytes % (auto) 18.5 %; Mean Corpuscular Hemoglobin 28.6 pg (25-34); Mean Corpuscular Hgb Conc 32.9 g/dL (32-36); Monocytes # (auto) 0.92 K/uL (0.11-0.59); Monocytes % (auto) 7.4 %; Neutrophils # (auto) 8.96 K/uL (1.4-6.5); Platelet Count 488 K/uL (130-400); RDW Coefficient of Variation 13.2 % (11.5-14.5); RDW Standard Deviation 42.4 fL (36.4-46.3); Red Blood Count 3.91 M/uL (4.2-5.4); White Blood Count 12.46 K/uL (4.8-10.8)
[2021-03-27] MEDS: FAMOTIDINE 20 MG in SYRINGE 3 ML IV SCH ×2 (07:20→20:24)
[2021-03-27 07:44] LABS: Albumin Level 3.1 gm/dl (3.4-5.0); BUN Creatinine Ratio 5.5 (10-20); Calcium 9.3 mg/dl (8.5-10.1); Creatinine Clr Calc Pharmacy 85.3 ml/min; Est GFR (African American) 106.1 ml/min; Est GFR (Non-African American) 91.6 ml/min; Magnesium 2.2 mg/dl (1.8-2.4); Potassium 3.6 mmol/L (3.5-5.1)
[2021-03-27 07:47] LABS: Albumin Globulin Ratio 0.7 (0.9-2); Bilirubin,Total 0.4 mg/dl (0.2-1); Globulin 4.4 gm/dl (2.5-4.0); Total Protein 7.5 gm/dl (6.4-8.2)
[2021-03-27] MEDS ORDERED: amLODIPine BESYLATE 5 MG TAB PO ONE (09:16)
--- NOTE | 2021-03-27 09:16 | Hospitalist Progress Note ---
Date of Service March 27, 2021 Assessment & Plan (1) Diverticulitis of intestine with abscess: CT with diverticulitis with 3.9cm sigmoid abscess * No blood cx drawn on admission * Pain control: Acetaminophen, morphine IV prn pain --NONE REPORTED * Nausea/vomiting: Zofran IV prn nausea/vomiting -- NONE REPORTED * LR + 20K @ 75cc/hr -- d/c this afternoon if able to keep up with oral intake * Pepcid IV BID * Zosyn 3.375g IV Q8H (day 3 of therapy) * WBC 20.4k --> 16 --> 12.4k. * Low grade temp 37.8C this morning. Ordered incentive spirometer. ?atelectasis. * Will check CRP and trend in another 2 days to ensure inflammation trending down -- currently 15 and will repeat Thursday * Consulted general surgery -- * --advancing to clear liquid diet today will continue today, consider fulls tomorrow then advance to low fiber * -- will need to give patient information regarding low fiber diet for at d ischarge * Electrolyte replacement as needed: Mag/K now wnl * Labs in AM * Follow up colonoscopy with Dr Reyes 4-6 weeks after discharge. ID consultation -- official report not yet back but per conversation with paras Luu with Gordon/Cecil for 2-3 weeks then repeat imaging to ensure abscess resolved. If not able to tolerate oral antibiotics, then Zosyn IV would be fine (2) Leukocytosis: * Improving * No pain * Continues on Zosyn (3) Osteopenia after menopause: * Noted * Resume calcium citrate once taking PO (4) DVT prophylaxis: * Lovenox 40mg SQ daily Dispo: continued inpatient stay (5) Hypertension: Elevated during admission - initially secondary to pain. BP currently 160/77 added 5mg amlodipine daily -- consider continue at d/c given continued elevated BP however patient did admit to increased stress/anxiety while in the hospital and typcially with BPs at home in 120-130s systolically IVF to be discontinued this evening Hydralazine prn HTN Continue to monitor but suspect no need for medication at d/c and can continue to monitor Admission and Anticipated Discharge Date Admission Date: March 24, 2021 Subjective Seen this afternoon. Doing well. Less loose stool. Tolerating liquid diet without issue. Saw Dr Pozo this Am and initially possible IV abx at d/c however ID consultation with recs for PO + yogurt BID at discharge. Official consult not in system but per patient conversation with Dr. Brown. She notes she was told Dr Brown is old school and prefer drainage from the start but did not know we did not have IR at this facility and was ok with current plan.Will message. No abdominal pain, nausea, vomiting, dysuria. Temp 37.8C this morning but denies fever or chills. Utilizing incentive spirometer. Per message from ID -- ok with Cipro/Flagyl x 2-3 weeks and repeat imaging to make sure abscess resolved. If unable to tolerate PO antibiotics could continue IV Zosyn. Will continue IV abx for today and consider starting PO tomorrow to ensure able to tolerate prior to d/c. Review of Systems Review of Systems: All systems reviewed & are unremarkable except as noted in HPI & below Physical Exam Constitutional: WD/WN, vitals as above Eyes: + anicteric sclerae; normal pupil size ENMT: external ear and nose normal, oropharynx normal Neck: normal visual inspection and trachea midline Respiratory: normal respiratory effort, lungs clear to auscultation Cardiovascular: RRR, no murmur, no edema Gastrointestinal (Abdomen): Inspection/Auscultation: abdomen normal to inspection; abdomen not distended Percussion/Palpation: abdomen soft; abdomen nontender, no guarding and abdomen not rigid Musculoskeletal: no cyanosis or clubbing, extremities motor strength 5/5 Skin: no rashes, warm and dry Neurologic: moves all extremities and awake; no focal motor deficits and not confused Psychiatric: A+Ox3, euthymic affect Genitourinary: no CVA tenderness Results & Data Results & Data ([facility]) Vital Signs (Past 12 Hours) Vital Signs Temp Pulse Pulse Resp BP BP Pulse Ox 03/27/21 08:09 172/89 H 03/27/21 07:26 190/96 H 03/27/21 07:20 37.8 C H 81 19 194/101 H 92 03/27/21 01:30 169/81 H 03/26/21 23:07 36.9 C 89 20 165/93 H 91 Laboratory Results 03/27/21 03/27/21 Range/Units 07:00 07:00 WBC 12.46 H (4.8-10.8) K/uL RBC 3.91 L (4.2-5.4) M/uL Hgb 11.2 L (12.0-16.0) g/dL Hct 34.0 L (37-47) % MCV 87.0 (80-100) fL MCH 28.6 (25-34) pg MCHC 32.9 (32-36) g/dL RDW Std Deviation 42.4 (36.4-46.3) fL RDW Coeff of Tc 13.2 (11.5-14.5) % Plt Count 488 H (130-400) K/uL MPV 9.0 (7.4-10.4) fL Immature Gran % (Auto) 0.9 % Neut % (Auto) 72.0 % Lymph % (Auto) 18.5 % [place] % (Auto) 7.4 % Eos % (Auto) 1.0 % Baso % (Auto) 0.2 % Neut # (Auto) 8.96 H (1.4-6.5) K/uL Lymph # (Auto) 2.31 (1.2-3.4) K/uL [place] # (Auto) 0.92 H (0.11-0.59) K/uL Eos # (Auto) 0.13 (0-0.5) K/uL Baso # (Auto) 0.03 (0-0.2) K/uL Immature Gran # (Auto) 0.11 H (0.00-0.02) K/uL Sodium 136 (136-145) mmol/L Potassium 3.6 (3.5-5.1) mmol/L Chloride 102 (98-107) mmol/L Carbon Dioxide 30 (21-32) mmol/L Anion Gap 4.0 (3-11) BUN 3 L (7-18) mg/dl Creatinine 0.53 L (0.6-1.2) mg/dl Est Cr Clr Drug Dosing 85.3 ml/min Est GFR ( Amer) 106.1 ml/min Est GFR (Non-Af Amer) 91.6 ml/min BUN/Creatinine Ratio 5.5 L (10-20) Glucose 97 (70-99) mg/dl Calcium 9.3 (8.5-10.1) mg/dl Magnesium 2.2 (1.8-2.4) mg/dl Total Bilirubin 0.4 (0.2-1) mg/dl AST 15 (15-37) U/L ALT 16 (12-78) U/L Alkaline Phosphatase 86 (45-117) U/L Total Protein 7.5 (6.4-8.2) gm/dl Albumin 3.1 L (3.4-5.0) gm/dl Globulin 4.4 H (2.5-4.0) gm/dl Albumin/Globulin Ratio 0.7 L (0.9-2) PG Care Time/CCT Total # of Minutes Spent Total Time Spent with Patient: Total time spent is greater than 50% in coordination of care (as documented) at patient's floor/unit and/or counseling patient: Coding Level of Care Code 35226 Subseq Hosp Care Lvl 3 Diagnoses Diverticulitis of intestine with abscess K57.20 Diverticulitis bleeding: unspecified bleeding status Diverticulitis site: large intestine Leukocytosis D72.829 Osteopenia after menopause M85.80 DVT prophylaxis Z29.9 Hypertension I10 (1) Diverticulitis of intestine with abscess Diverticulitis bleeding: unspecified bleeding status Diverticulitis site: large intestine Qualified Code(s): K57.20 - Diverticulitis of large intestine with perforation and abscess without bleeding
--- NOTE | 2021-03-27 10:20 | Surgery Progress Note ---
Date of Service March 27, 2021 Assessment & Plan (1) Diverticulitis of intestine with abscess: WBC 12,000 keep on clears ID consult requested consider PICC/home IV abx Admission and Anticipated Discharge Date Admission Date: March 24, 2021 Subjective tolerating liquids, no abd pain, no fevers/chills Physical Exam Gastrointestinal (Abdomen): Inspection/Auscultation: abdomen not distended Percussion/Palpation: abdomen soft; abdomen nontender Results & Data ([facility]) Vital Signs (Past 12 Hours) Vital Signs Temp Pulse Pulse Resp BP BP Pulse Ox 03/27/21 09:41 160/77 H 03/27/21 08:09 172/89 H 03/27/21 07:26 190/96 H 03/27/21 07:20 37.8 C H 81 19 194/101 H 92 03/27/21 01:30 169/81 H 03/26/21 23:07 36.9 C 89 20 165/93 H 91 PG Care Time/CCT Total # of Minutes Spent Total Time Spent with Patient: Total time spent is greater than 50% in coordination of care (as documented) at patient's floor/unit and/or counseling patient: Coding Level of Care Code 70321 Subseq Hosp Care Lvl 1 Diagnoses Diverticulitis of intestine with abscess K57.20 Diverticulitis bleeding: unspecified bleeding status Diverticulitis site: large intestine (1) Diverticulitis of intestine with abscess Diverticulitis bleeding: unspecified bleeding status Diverticulitis site: large intestine Qualified Code(s): K57.20 - Diverticulitis of large intestine with perforation and abscess without bleeding
[2021-03-27] MEDS: ENOXAPARIN INJ 40 MG/0.4 ML SYR SQ SCH (20:24)
[2021-03-28] MEDS: PIPERACILLIN/TAZOBACTAM 3.375 GM in DEXTROSE 5% 100 ML IV SCH (01:28)
[2021-03-28 06:33] LABS: Basophils # (auto) 0.03 K/uL (0-0.2); Basophils % (auto) 0.3 %; Eosinophils # (auto) 0.24 K/uL (0-0.5); Eosinophils % (auto) 2.5 %; Hematocrit (blood only) 31.6 % (37-47); Hemoglobin 10.3 g/dL (12.0-16.0); Immature Granulocytes # (auto) 0.12 K/uL (0.00-0.02); Immature Granulocytes % (auto) 1.2 %; Lymphocytes # (auto) 2.28 K/uL (1.2-3.4); Lymphocytes % (auto) 23.3 %; Mean Corpuscular Hemoglobin 28.2 pg (25-34); Mean Corpuscular Hgb Conc 32.6 g/dL (32-36); Mean Corpuscular Volume 86.6 fL (80-100); Mean Platelet Volume 9.1 fL (7.4-10.4); Monocytes # (auto) 0.95 K/uL (0.11-0.59); Monocytes % (auto) 9.7 %; Neutrophils # (auto) 6.17 K/uL (1.4-6.5); Platelet Count 426 K/uL (130-400); RDW Coefficient of Variation 13.2 % (11.5-14.5); RDW Standard Deviation 42.6 fL (36.4-46.3); Red Blood Count 3.65 M/uL (4.2-5.4); White Blood Count 9.79 K/uL (4.8-10.8)
[2021-03-28 07:02] LABS: Albumin Level 2.5 gm/dl (3.4-5.0); BUN Creatinine Ratio 6.4 (10-20); Calcium 8.9 mg/dl (8.5-10.1); Creatinine Clr Calc Pharmacy 83.7 ml/min; Est GFR (African American) 105.5 ml/min; Magnesium 1.9 mg/dl (1.8-2.4); Potassium 3.1 mmol/L (3.5-5.1)
--- NOTE | 2021-03-28 07:02 | Surgery Progress Note ---
Date of Service March 28, 2021 Assessment & Plan (1) Diverticulitis of intestine with abscess: stable try full liquids- today- do not advance ID suggests po cipro/flagyl- with yogurt possibly trial today po atbx possible d/c tomorrow low fiber diet at home 1-2 weeks Admission and Anticipated Discharge Date Admission Date: March 24, 2021 Subjective afeb feeling ok loose bms Review of Systems Review of Systems: All systems reviewed & are unremarkable except as noted in HPI & below Physical Exam Constitutional: well developed and well nourished; no acute distress Eyes: + anicteric sclerae Respiratory: normal respiratory effort; no respiratory distress Cardiovascular: Rate/Rhythm: regular rate Gastrointestinal (Abdomen): Percussion/Palpation: abdomen soft Musculoskeletal: Gait: normal gait Skin: no rashes, warm and dry Neurologic: awake Psychiatric: Orientation: alert Results & Data ([facility]) Vital Signs (Past 12 Hours) Vital Signs Temp Pulse Resp BP Pulse Ox 03/27/21 23:15 36.7 C 67 16 167/74 H 94 PG Care Time/CCT Total # of Minutes Spent Total Time Spent with Patient: Total time spent is greater than 50% in coordination of care (as documented) at patient's floor/unit and/or counseling patient: Coding Level of Care Code 46030 Inpt Consult Level 3 Diagnoses Diverticulitis of intestine with abscess K57.20 Diverticulitis bleeding: unspecified bleeding status Diverticulitis site: large intestine (1) Diverticulitis of intestine with abscess Diverticulitis bleeding: unspecified bleeding status Diverticulitis site: large intestine Qualified Code(s): K57.20 - Diverticulitis of large intestine with perforation and abscess without bleeding
[2021-03-28 07:05] LABS: Albumin Globulin Ratio 0.6 (0.9-2); Bilirubin,Total 0.3 mg/dl (0.2-1); Globulin 3.9 gm/dl (2.5-4.0); Total Protein 6.4 gm/dl (6.4-8.2)
[2021-03-28] MEDS ORDERED: POTASSIUM CHLORIDE CRTAB 20 MEQ TABCR PO STA (08:31)
--- NOTE | 2021-03-28 08:37 | Hospitalist Progress Note ---
Date of Service March 28, 2021 Assessment & Plan (1) Diverticulitis of intestine with abscess: CT with diverticulitis with 3.9cm sigmoid abscess * No blood cx drawn on admission * Pain control: Acetaminophen, morphine IV prn pain --NONE REPORTED * Nausea/vomiting: Zofran IV prn nausea/vomiting -- NONE REPORTED * LR + 20K @ 75cc/hr -- d/c this afternoon if able to keep up with oral intake * Pepcid IV BID -- change to protonix 40mg daily * Zosyn 3.375g IV Q8H (day 4 of therapy) --> switching to PO Cipro/Flagyl today to see if able to tolerate. If she does, plan for 2-3 week oral course per GI. If not, will need to use IV abx at d/c. Will need repeat imaging to ensure abscess resolved as well * CM following * WBC 20.4k --> 16 --> 12.4k --> 9.7k. Afebrile (low grade [id number] on 03/27) * CRP 15 yesterday and will trend in AM * Consulted general surgery -- * --advancing to full liquid today, considering advance to low fiber tomorrow * -- will need to give patient information regarding low fiber diet for at discharge * Electrolyte replacement as needed: K 3.1 today and ordered 40meq PO. Mag wnl * Labs in AM * Follow up colonoscopy with Dr Reyes 4-6 weeks after discharge. ID consultation -- official report not yet back but per conversation with Dr Brown, paras with Cipro/Flagyl for 2-3 weeks then repeat imaging to ensure abscess resolved. If not able to tolerate oral antibiotics, then Zosyn IV would be fine (2) Hematochezia: Reported blood in stool this morning ?Hemorrhoidal h/h stable but 10.3 (now currently not on IVF) -- monitor blood counts in AM fecal occult negative cdiff negative will have GI weigh in as they will also be coordinating outpt c-scope and patient will need repeat imaging to ensure resolution of abscess as above (3) Leukocytosis: * Improving * No pain * Continues on Zosyn (4) Osteopenia after menopause: * Noted * Resume calcium citrate once taking PO (5) Hypertension: Elevated during admission - initially secondary to pain. BP currently 169/82 added 5mg amlodipine daily -- consider continue at d/c given continued elevated BP however patient did admit to increased stress/anxiety while in the hospital and typically with BPs at home in 120-130s systolically IVF discontinued evening / Hydralazine prn HTN Continue to monitor but suspect no need for medication at d/c and can continue to monitor (6) DVT prophylaxis: * Lovenox 40mg SQ daily Dispo: continued inpatient stay Admission and Anticipated Discharge Date Admission Date: March 24, 2021 Subjective Patient evaluated this afternoon. Tolerating oral antibiotics without issue. Continues with loose stools. but she states that she had some blood in her stool with clots this morning. No melena. She has a history of hemorrhoids, non- painful and this could be the culprit given bleeding and repeat fecal occult negative for blood despite visualization of blood/clot in hat in bathroom. Cdiff negative. No abdominal pain, nausea, vomiting, chest pain, shortness of breath, fevers or chills. Will have Dr. Reyes weigh in. Discussed repeating imaging in 3-4 weeks at discharge and if continues to tolerate oral abx and low fiber for tomorrow could consider discharge. Did have some rash/itching to her right hip, she states she has skin issues chronically. Got a dose of claritin and no further itching. Can have prn. Review of Systems Review of Systems: All systems reviewed & are unremarkable except as noted in HPI & below Physical Exam Constitutional: WD/WN, vitals as above Eyes: + anicteric sclerae; normal pupil size ENMT: external ear and nose normal, oropharynx normal Neck: normal visual inspection and trachea midline Respiratory: normal respiratory effort, lungs clear to auscultation Cardiovascular: RRR, no murmur, no edema Gastrointestinal (Abdomen): Inspection/Auscultation: abdomen normal to inspection; abdomen not distended Percussion/Palpation: abdomen soft; abdomen nontender, no guarding and abdomen not rigid Musculoskeletal: no cyanosis or clubbing, extremities motor strength 5/5 Skin: contact dermatitis R hip/buttock, non-painful, no drainage or open lesions Neurologic: moves all extremities and awake; no focal motor deficits and not confused Psychiatric: A+Ox3, euthymic affect Genitourinary: no CVA tenderness Results & Data Results & Data ([facility]) Vital Signs (Past 12 Hours) Vital Signs Temp Pulse Resp BP BP Pulse Ox 03/28/21 07:36 36.5 C 77 15 169/82 H 92 03/27/21 23:15 36.7 C 67 16 167/74 H 94 Laboratory Results 03/28/21 03/28/21 03/27/21 Range/Units 06:08 06:08 07:10 WBC 9.79 (4.8-10.8) K/uL RBC 3.65 L (4.2-5.4) M/uL Hgb 10.3 L (12.0-16.0) g/dL Hct 31.6 L (37-47) % MCV 86.6 (80-100) fL MCH 28.2 (25-34) pg MCHC 32.6 (32-36) g/dL RDW Std Deviation 42.6 (36.4-46.3) fL RDW Coeff of Tc 13.2 (11.5-14.5) % Plt Count 426 H (130-400) K/uL MPV 9.1 (7.4-10.4) fL Immature Gran % (Auto) 1.2 % Neut % (Auto) 63.0 % Lymph % (Auto) 23.3 % [place] % (Auto) 9.7 % Eos % (Auto) 2.5 % Baso % (Auto) 0.3 % Neut # (Auto) 6.17 (1.4-6.5) K/uL Lymph # (Auto) 2.28 (1.2-3.4) K/uL [place] # (Auto) 0.95 H (0.11-0.59) K/uL Eos # (Auto) 0.24 (0-0.5) K/uL Baso # (Auto) 0.03 (0-0.2) K/uL Immature Gran # (Auto) 0.12 H (0.00-0.02) K/uL Sodium 138 (136-145) mmol/L Potassium 3.1 L (3.5-5.1) mmol/L Chloride 103 (98-107) mmol/L Carbon Dioxide 29 (21-32) mmol/L Anion Gap 6.0 (3-11) BUN 3 L (7-18) mg/dl Creatinine 0.54 L (0.6-1.2) mg/dl Est Cr Clr Drug Dosing 83.7 ml/min Est GFR ( Amer) 105.5 ml/min Est GFR (Non-Af Amer) 91.0 ml/min BUN/Creatinine Ratio 6.4 L (10-20) Glucose 97 (70-99) mg/dl Calcium 8.9 (8.5-10.1) mg/dl Magnesium 1.9 (1.8-2.4) mg/dl Total Bilirubin 0.3 (0.2-1) mg/dl AST 38 H (15-37) U/L ALT 31 (12-78) U/L Alkaline Phosphatase 75 (45-117) U/L C-Reactive Protein 15.00 H (0-0.29) mg/dl Total Protein 6.4 (6.4-8.2) gm/dl Albumin 2.5 L (3.4-5.0) gm/dl Globulin 3.9 (2.5-4.0) gm/dl Albumin/Globulin Ratio 0.6 L (0.9-2) PG Care Time/CCT Total # of Minutes Spent Total Time Spent with Patient: Total time spent is greater than 50% in coordination of care (as documented) at patient's floor/unit and/or counseling patient: Coding Level of Care Code 35280 Subseq Hosp Care Lvl 3 Diagnoses Diverticulitis of intestine with abscess K57.20 Diverticulitis bleeding: unspecified bleeding status Diverticulitis site: large intestine Hematochezia K92.1 Leukocytosis D72.829 Osteopenia after menopause M85.80 Hypertension I10 DVT prophylaxis Z29.9 (1) Diverticulitis of intestine with abscess Diverticulitis bleeding: unspecified bleeding status Diverticulitis site: large intestine Qualified Code(s): K57.20 - Diverticulitis of large intestine with perforation and abscess without bleeding
[2021-03-28] MEDS: amLODIPine BESYLATE 5 MG TAB PO SCH (09:00)
[2021-03-28] MEDS: metroNIDAZOLE 500 MG TAB PO SCH ×3 (09:00→20:15)
[2021-03-28] MEDS: CIPROFLOXACIN 500 MG TAB PO SCH ×2 (09:00→20:15)
[2021-03-28] MEDS: FAMOTIDINE 20 MG in SYRINGE 3 ML IV SCH (09:02)
[2021-03-28] MEDS ORDERED: CETIRIZINE HCL 10 MG TABLET PO ONE (09:31)
[2021-03-28] MEDS: PANTOprazole 40 MG TAB PO SCH (13:40)
--- NOTE | 2021-03-28 14:12 | Consultation Report ---
DATE OF CONSULTATION: 03/28/2021 GASTROINTESTINAL CONSULT NOTE REASON FOR EVALUATION: Diverticulitis with abscess and some rectal bleeding. HISTORY OF PRESENT ILLNESS: The patient is a 76-year-old who had a colonoscopy in 06/2016, it was notable for multiple sigmoid diverticula as well as some internal hemorrhoids. Her colonoscopy was done for history of polyps. The patient did well until Thursday of when she began experiencing pelvic pain. She also had some fever and night sweats and some associated constipation. The pain got worse and she presented to the hospital where she was seen in the Emergency Room and underwent a CT scan that showed an extensive sigmoid diverticulosis with diverticulitis and a 3.5 cm pelvic abscess adjacent to the vagina. She has been started on antibiotics and bowel rest, and she is no longer febrile and her white count is down to normal. Today, she had some bright red rectal bleeding with clots during a bowel movement earlier today. Prior to that, her stool was heme negative. IMPRESSION AND PLAN: The patient most likely has some internal hemorrhoids documented on her colonoscopy previously that bled due to her constipation from her acute diverticulitis. At this point, doing an endoscopy is relatively contraindicated and I would recommend that we continue treating her with antibiotics and hopefully will be able to clear the abscess without requiring percutaneous or surgical drainage, and hopefully, it will not fistulize to the vaginal area. Once this has been rectified, I would recommend that in 6-8 weeks, she have a colonoscopy to evaluate her colon and rule out other potential cause for her rectal bleeding other than internal hemorrhoids. If her hemorrhoids continue to bother her, we can treat them with Anusol suppositories until she is able to improve and have a colonoscopy. She is aware to be vigilant for potential vaginal drainage from a fistula formation, and if she does not improve, then she may need percutaneous or surgical drainage of the abscess.
[2021-03-28] MEDS: ENOXAPARIN INJ 40 MG/0.4 ML SYR SQ SCH (20:15)
[2021-03-29 06:05] LABS: Basophils # (auto) 0.03 K/uL (0-0.2); Basophils % (auto) 0.3 %; Eosinophils # (auto) 0.39 K/uL (0-0.5); Eosinophils % (auto) 3.4 %; Hematocrit (blood only) 33.4 % (37-47); Hemoglobin 10.7 g/dL (12.0-16.0); Immature Granulocytes # (auto) 0.21 K/uL (0.00-0.02); Immature Granulocytes % (auto) 1.8 %; Lymphocytes # (auto) 2.83 K/uL (1.2-3.4); Lymphocytes % (auto) 24.9 %; Mean Corpuscular Hemoglobin 28.4 pg (25-34); Mean Corpuscular Volume 88.6 fL (80-100); Mean Platelet Volume 8.9 fL (7.4-10.4); Monocytes # (auto) 1.13 K/uL (0.11-0.59); Monocytes % (auto) 9.9 %; Neutrophils # (auto) 6.77 K/uL (1.4-6.5); Neutrophils % (auto) 59.7 %; Platelet Count 417 K/uL (130-400); RDW Coefficient of Variation 13.5 % (11.5-14.5); RDW Standard Deviation 43.3 fL (36.4-46.3); Red Blood Count 3.77 M/uL (4.2-5.4); White Blood Count 11.36 K/uL (4.8-10.8)
[2021-03-29 06:48] LABS: Albumin Globulin Ratio 0.7 (0.9-2); Albumin Level 2.6 gm/dl (3.4-5.0); BUN Creatinine Ratio 7.9 (10-20); Bilirubin,Total 0.4 mg/dl (0.2-1); C Reactive Protein 8.6 mg/dl (0-0.29); Calcium 8.9 mg/dl (8.5-10.1); Creatinine Clr Calc Pharmacy 82.2 ml/min; Est GFR (African American) 104.9 ml/min; Est GFR (Non-African American) 90.5 ml/min; Globulin 3.9 gm/dl (2.5-4.0); Magnesium 2.1 mg/dl (1.8-2.4); Potassium 3.6 mmol/L (3.5-5.1); Total Protein 6.5 gm/dl (6.4-8.2)
--- NOTE | 2021-03-29 07:46 | Hospitalist Progress Note ---
Date of Service March 29, 2021 Assessment & Plan Admission and Anticipated Discharge Date Admission Date: March 24, 2021 Results & Data Results & Data ([facility]) Vital Signs (Past 12 Hours) Vital Signs Temp Pulse Resp BP Pulse Ox 03/28/21 23:17 36.8 C 67 18 131/76 95 Laboratory Results 03/29/21 03/29/21 03/28/21 Range/Units 05:48 05:48 10:30 WBC 11.36 H (4.8-10.8) K/uL RBC 3.77 L (4.2-5.4) M/uL Hgb 10.7 L (12.0-16.0) g/dL Hct 33.4 L (37-47) % MCV 88.6 (80-100) fL MCH 28.4 (25-34) pg MCHC 32.0 (32-36) g/dL RDW Std Deviation 43.3 (36.4-46.3) fL RDW Coeff of Tc 13.5 (11.5-14.5) % Plt Count 417 H (130-400) K/uL MPV 8.9 (7.4-10.4) fL Immature Gran % (Auto) 1.8 % Neut % (Auto) 59.7 % Lymph % (Auto) 24.9 % [place] % (Auto) 9.9 % Eos % (Auto) 3.4 % Baso % (Auto) 0.3 % Neut # (Auto) 6.77 H (1.4-6.5) K/uL Lymph # (Auto) 2.83 (1.2-3.4) K/uL [place] # (Auto) 1.13 H (0.11-0.59) K/uL Eos # (Auto) 0.39 (0-0.5) K/uL Baso # (Auto) 0.03 (0-0.2) K/uL Immature Gran # (Auto) 0.21 H (0.00-0.02) K/uL Sodium 140 (136-145) mmol/L Potassium 3.6 D (3.5-5.1) mmol/L Chloride 106 (98-107) mmol/L Carbon Dioxide 28 (21-32) mmol/L Anion Gap 6.0 (3-11) BUN 4 L (7-18) mg/dl Creatinine 0.55 L (0.6-1.2) mg/dl Est Cr Clr Drug Dosing 82.2 ml/min Est GFR ( Amer) 104.9 ml/min Est GFR (Non-Af Amer) 90.5 ml/min BUN/Creatinine Ratio 7.9 L (10-20) Glucose 96 (70-99) mg/dl Calcium 8.9 (8.5-10.1) mg/dl Magnesium 2.1 (1.8-2.4) mg/dl Total Bilirubin 0.4 (0.2-1) mg/dl AST 46 H (15-37) U/L ALT 51 (12-78) U/L Alkaline Phosphatase 75 (45-117) U/L C-Reactive Protein 8.60 H (0-0.29) mg/dl Total Protein 6.5 (6.4-8.2) gm/dl Albumin 2.6 L (3.4-5.0) gm/dl Globulin 3.9 (2.5-4.0) gm/dl Albumin/Globulin Ratio 0.7 L (0.9-2) Stool Occult Bld Scrn Negative (Negative) Stl C. diff Tox B Gene (Neg) 03/27/21 Range/Units 10:30 WBC (4.8-10.8) K/uL RBC (4.2-5.4) M/uL Hgb (12.0-16.0) g/dL Hct (37-47) % MCV (80-100) fL MCH (25-34) pg MCHC (32-36) g/dL RDW Std Deviation (36.4-46.3) fL RDW Coeff of Tc (11.5-14.5) % Plt Count (130-400) K/uL MPV (7.4-10.4) fL Immature Gran % (Auto) % Neut % (Auto) % Lymph % (Auto) % [place] % (Auto) % Eos % (Auto) % Baso % (Auto) % Neut # (Auto) (1.4-6.5) K/uL Lymph # (Auto) (1.2-3.4) K/uL [place] # (Auto) (0.11-0.59) K/uL Eos # (Auto) (0-0.5) K/uL Baso # (Auto) (0-0.2) K/uL Immature Gran # (Auto) (0.00-0.02) K/uL Sodium (136-145) mmol/L Potassium (3.5-5.1) mmol/L Chloride (98-107) mmol/L Carbon Dioxide (21-32) mmol/L Anion Gap (3-11) BUN (7-18) mg/dl Creatinine (0.6-1.2) mg/dl Est Cr Clr Drug Dosing ml/min Est GFR ( Amer) ml/min Est GFR (Non-Af Amer) ml/min BUN/Creatinine Ratio (10-20) Glucose (70-99) mg/dl Calcium (8.5-10.1) mg/dl Magnesium (1.8-2.4) mg/dl Total Bilirubin (0.2-1) mg/dl AST (15-37) U/L ALT (12-78) U/L Alkaline Phosphatase (45-117) U/L C-Reactive Protein (0-0.29) mg/dl Total Protein (6.4-8.2) gm/dl Albumin (3.4-5.0) gm/dl Globulin (2.5-4.0) gm/dl Albumin/Globulin Ratio (0.9-2) Stool Occult Bld Scrn (Negative) Stl C. diff Tox B Gene Negative Cdiff Gene (Neg) PG Care Time/CCT Total # of Minutes Spent Total Time Spent with Patient: Total time spent is greater than 50% in coordination of care (as documented) at patient's floor/unit and/or counseling patient: Coding
--- NOTE | 2021-03-29 08:45 | Gastroenterology Progress Note ---
Date of Service March 29, 2021 Assessment & Plan (1) Hematochezia: The patient is a pleasant 76-year-old female who presents to the GI service due to history of diverticular abscess with rectal bleeding. She reports that she has had no further rectal bleeding overnight. Dr. Reyes evaluated the patient yesterday and thought that her symptoms may be due to internal hemorrhoids. We will follow-up with the patient as an outpatient in 6 to 8 weeks for colonoscopy to evaluate other causes of rectal bleeding. Symptomatic management of hemorrhoids is recommended if the patient has continued problems. Please refer to supervising physician addendum for further recommendations. Admission and Anticipated Discharge Date Admission Date: March 24, 2021 Supervising Physician Co-Signing Physician Notes Patient discharged prior to being seen by me today. Subjective The patient is sitting up at bedside this morning in a chair talking to nursing staff upon entry to room. She reports that she is feeling great. She reports that she is not experiencing any abdominal pain. She denies nausea or vomiting. She had a bowel movement this morning and notes that there was no blood in her stool. She is hoping to be discharged today. Review of Systems Review of Systems: All systems reviewed & are unremarkable except as noted in Subjective Physical Exam Respiratory: normal respiratory effort; no respiratory distress and no labored breathing Gastrointestinal (Abdomen): Inspection/Auscultation: abdomen normal to inspection and normal bowel sounds Percussion/Palpation: abdomen soft; abdomen nontender, no guarding and abdomen not rigid Results & Data ([facility]) Vital Signs (Past 12 Hours) Vital Signs Temp Pulse Resp BP Pulse Ox 03/29/21 08:03 37.0 C 94 H 16 126/77 94 03/28/21 23:17 36.8 C 67 18 131/76 95 Laboratory Results - last 24 hr 03/27/21 03/28/21 03/29/21 10:30 10:30 05:48 WBC 11.36 H RBC 3.77 L Hgb 10.7 L Hct 33.4 L MCV 88.6 MCH 28.4 MCHC 32.0 RDW Std Deviation 43.3 RDW Coeff of Tc 13.5 Plt Count 417 H MPV 8.9 Immature Gran % (Auto) 1.8 Neut % (Auto) 59.7 Lymph % (Auto) 24.9 [place] % (Auto) 9.9 Eos % (Auto) 3.4 Baso % (Auto) 0.3 Neut # (Auto) 6.77 H Lymph # (Auto) 2.83 [place] # (Auto) 1.13 H Eos # (Auto) 0.39 Baso # (Auto) 0.03 Immature Gran # (Auto) 0.21 H Sodium Potassium Chloride Carbon Dioxide Anion Gap BUN Creatinine Est Cr Clr Drug Dosing Est GFR ( Amer) Est GFR (Non-Af Amer) BUN/Creatinine Ratio Glucose Calcium Magnesium Total Bilirubin AST ALT Alkaline Phosphatase C-Reactive Protein Total Protein Albumin Globulin Albumin/Globulin Ratio Stool Occult Bld Scrn Negative Stl C. diff Tox B Gene Negative Cdiff Gene 03/29/21 05:48 WBC RBC Hgb Hct MCV MCH MCHC RDW Std Deviation RDW Coeff of Tc Plt Count MPV Immature Gran % (Auto) Neut % (Auto) Lymph % (Auto) [place] % (Auto) Eos % (Auto) Baso % (Auto) Neut # (Auto) Lymph # (Auto) [place] # (Auto) Eos # (Auto) Baso # (Auto) Immature Gran # (Auto) Sodium 140 Potassium 3.6 D Chloride 106 Carbon Dioxide 28 Anion Gap 6.0 BUN 4 L Creatinine 0.55 L Est Cr Clr Drug Dosing 82.2 Est GFR ( Amer) 104.9 Est GFR (Non-Af Amer) 90.5 BUN/Creatinine Ratio 7.9 L Glucose 96 Calcium 8.9 Magnesium 2.1 Total Bilirubin 0.4 AST 46 H ALT 51 Alkaline Phosphatase 75 C-Reactive Protein 8.60 H Total Protein 6.5 Albumin 2.6 L Globulin 3.9 Albumin/Globulin Ratio 0.7 L Stool Occult Bld Scrn Stl C. diff Tox B Gene
[2021-03-29] MEDS: PANTOprazole 40 MG TAB PO SCH (08:51)
[2021-03-29] MEDS: CIPROFLOXACIN 500 MG TAB PO SCH (08:51)
[2021-03-29] MEDS: metroNIDAZOLE 500 MG TAB PO SCH (08:51)
[2021-03-29] MEDS: amLODIPine BESYLATE 5 MG TAB PO SCH (08:51)
--- NOTE | 2021-03-29 09:36 | Surgery Progress Note ---
Date of Service March 29, 2021 Assessment & Plan (1) Diverticulitis of intestine with abscess: Plan for p.o. antibiotics for additional 2 weeks likely Seen the office in 1 to 2 weeks ReCT in 2 to 3 weeks Admission and Anticipated Discharge Date Admission Date: March 24, 2021 Subjective Patient has no significant complaints She seems to be tolerating her p.o. antibiotics Review of Systems Review of Systems: All systems reviewed & are unremarkable except as noted in HPI & below Physical Exam Constitutional: well developed; no acute distress Eyes: + anicteric sclerae Respiratory: normal respiratory effort; no respiratory distress Cardiovascular: Rate/Rhythm: regular rate Musculoskeletal: Head/Neck/Chest: head atraumatic Skin: no rashes, warm and dry Neurologic: awake Psychiatric: Orientation: alert Results & Data ([facility]) Vital Signs (Past 12 Hours) Vital Signs Temp Pulse Resp BP Pulse Ox 03/29/21 08:03 37.0 C 94 H 16 126/77 94 03/28/21 23:17 36.8 C 67 18 131/76 95 PG Care Time/CCT Total # of Minutes Spent Total Time Spent with Patient: Total time spent is greater than 50% in coordination of care (as documented) at patient's floor/unit and/or counseling patient: Coding Level of Care Code 67540 Inpt Consult Level 3 Diagnoses Diverticulitis of intestine with abscess K57.20 Diverticulitis bleeding: unspecified bleeding status Diverticulitis site: large intestine (1) Diverticulitis of intestine with abscess Diverticulitis bleeding: unspecified bleeding status Diverticulitis site: large intestine Qualified Code(s): K57.20 - Diverticulitis of large intestine with perforation and abscess without bleeding
--- NOTE | 2021-03-29 09:44 | Discharge Summary ---
Date of Service March 29, 2021 Admission HPI Per Admitting Provider Darline Mathew is a 76-year-old female who presents to the ER with abdominal pain for the past 2 days. Associated fevers and chills, mild constipation. No diarrhea, melena, bright red blood in stool. She has had no episodes of diverticulitis in the past. She reports having a colonoscopy [address] Reyes and found polyps at that time. In the ER CT abdomen pelvis was concerning for 3.9 cm diverticular abscess with acute sigmoid diverticulitis. WBC 20.44. She was given Zosyn 4.5 g. She was seen by surgery and recommended nonsurgical management at this time. She was referred to medicine for admission ongoing management of diverticulitis. Admission Exam Per Admitting Provider Constitutional: WD/WN, vitals as above Eyes: + anicteric sclerae; normal pupil size ENMT: external ear and nose normal, oropharynx normal Respiratory: normal respiratory effort, lungs clear to auscultation Cardiovascular: RRR, no murmur, no edema Gastrointestinal (Abdomen): Inspection/Auscultation: abdomen normal to inspection; abdomen not distended Percussion/Palpation: + abdomen tender (LLQ pain without rebound tenderness) and abdomen soft; no guarding and abdomen not rigid Musculoskeletal: no cyanosis or clubbing, extremities motor strength 5/5 Skin: no rashes, warm and dry Neurologic: moves all extremities and awake; no focal motor deficits and not confused Psychiatric: A+Ox3, euthymic affect Genitourinary: no CVA tenderness Principal Diagnosis Acute Sigmoid Diverticulitis with Abscess Discharge Exam Constitutional WD/WN, vitals as above no acute distress Eyes + anicteric sclerae; normal pupil size ENMT external ear and nose normal, oropharynx normal Neck normal visual inspection and trachea midline Respiratory normal respiratory effort, lungs clear to auscultation normal respiratory effort; no respiratory distress and no labored breathing Cardiovascular RRR, no murmur, no edema Gastrointestinal (Abdomen) Inspection/Auscultation: abdomen normal to inspection and normal bowel sounds; abdomen not distended Percussion/Palpation: abdomen soft; abdomen nontender, no guarding and abdomen not rigid Musculoskeletal no cyanosis or clubbing, extremities motor strength 5/5 Head/Neck/Chest: head atraumatic Gait: normal gait Skin no rashes, warm and dry Neurologic moves all extremities and awake; no focal motor deficits and not confused Psychiatric A+Ox3, euthymic affect Orientation: alert Genitourinary no CVA tenderness Discharge Data Allergies Allergy/AdvReac Type Severity Reaction Status Date / Time bee venom protein (honey bee) Allergy Mild Unknown Unverified 03/24/21 10:48 No Known Drug Allergies Allergy Unknown Verified 03/24/21 10:48 Consultations 03/24/21 12:03 ED Decision to Admit Stat 03/24/21 12:16 Consult General Surgery Routine 03/26/21 08:12 Consult Infectious Diseases Routine 03/28/21 11:02 Consult Gastroenterology Routine Ordered Studies Abdomen/Pelvis CT 03/24/21 10:26 CT SCAN OF THE ABDOMEN AND PELVIS WITH IV CONTRAST CLINICAL HISTORY: Left lower quadrant abdominal pain. COMPARISON STUDY: No priors. TECHNIQUE: Following the IV administration of 88 cc of Optiray 320, CT scan of the abdomen and pelvis is performed from the lung bases to the proximal femora. Images are reviewed in the axial, sagittal, and coronal planes. IV contrast was administered without complication. A dose lowering technique was utilized adhering to the principles of ALARA. CT DOSE: 445.46 mGy.cm FINDINGS: Lung bases: The heart is mildly enlarged and without pericardial effusion. The lung bases are clear noting bibasilar scarring/atelectasis. Liver: The contrast-enhanced liver is elongated suggesting Stormy's lobe variant anatomy. The liver is normal in contour and attenuation. There is no intrahepatic biliary ductal dilatation. The hepatic veins and portal veins are patent. Gallbladder: Unremarkable. Spleen: Normal in size and attenuation. Pancreas: Unremarkable. Adrenal glands: Unremarkable. Kidneys: The contrast enhanced kidneys are normal in size and without hydronephrosis. The kidneys enhance symmetrically. Abdominal vasculature: The abdominal aorta is normal in course and caliber noting advanced atherosclerotic calcification. Bowel: There is advanced diverticulosis of left colon. There is significant wall thickening with pericolonic inflammation and fluid involving the sigmoid consistent with acute diverticulitis. There is a 3.1 x 3.9 x 3.1 cm diverticular abscess in the deep pelvis along the inferior aspect of the sigmoid colon and abutting the vaginal cuff. This is best seen on image #303. The appendix is well-visualized and normal. Peritoneum: There is no intraperitoneal free air. Trace free fluid is seen in the pelvis. Lymphadenopathy: None. Pelvic viscera: Thickening of the left posterolateral bladder wall is likely related to adjacent diverticulitis. The uterus is surgically absent. No adnexal lesion is seen. Skeletal structures: The skeletal structures are osteopenic. There is mild to moderate lumbosacral spondylosis. Sclerotic change is noted in the pubic symphysis. No lytic or blastic lesions are seen. IMPRESSION: 1. Advanced colonic diverticulosis with evidence of acute sigmoid diverticulitis. 2. There is a 3.9 cm diverticular abscess in the deep pelvis between the sigmoid colon and the vaginal cuff. 3. No intraperitoneal free air is identified. 4. Left posterolateral bladder wall thickening is likely related to adjacent diverticulitis. 5. Additional findings as above. ACT 112: Negative or not required by law. Electronically signed by: Fredy Faustin M.D. 03/24/2021 11:45 AM Hospital Course (1) Diverticulitis of intestine with abscess: CT with diverticulitis with 3.9cm sigmoid abscess. BCx not drawn on admission, but repeat NGTD x 48 hours GI, general surgery consulted * Conservative treatment * Placed on IVF, antiemetics prn, pain control (did not need anything for pain) * Electrolyte replacement as needed * Pepcid IV BID * WBC 20.4k --> 11.36k, afebrile * Zosyn IV while inpatient and switched to Cipro/Flagyl x 3 weeks per recommendation by Infectious Disease, Dr Chappell, with yogurt BID. She tolerated Cipro/Flagyl without issue. * --> WILL NEED REPEAT CTAP in 3 weeks to ensure abscess resolved * CRP 15 --> trended down to 8.6 * Slowly advanced diet over several days and patient tolerating abx and low fiber without any increased pain -- to continue for another 2 weeks then adv ance as tolerated Follow up colonoscopy with Dr Reyes 4-6 weeks after discharge. (2) Hematochezia: Reported blood in stool morning 03/28. Reported diarrhea and was tested for cdiff, negative. Did have episode of blood in stool reported --> c/w hemorrhoids per GI and prior scope, non-painful. BM on subsequent movement NEGATIVE for fecal occult Hgb improved from 10.3--> 10.7 following reported blood in stool Of note, abscess Very deep in pelvis and risk for fistulization to vagina -- patient educated on warning signs and when to return to ER if this occurs. No further bleeding reported and she states she had a formed, brown stool this AM prior to discharge (3) Leukocytosis: Improving No pain As above (4) Osteopenia after menopause: Noted Resumed calcium citrate at discharge (5) Hypertension: Elevated during admission - initially secondary to pain. Utilized amlodipine during admission, however BP likely elevated due to anxiety/stress in the hospital Instructed if still elevated at f/u should consider adding low dose like amlodipine utilized while in the hospital She stated she typically with BPs at home in 120-130s systolically at home with her cuff (6) DVT prophylaxis: Lovenox 40mg SQ daily while in the hospital Discharged home Total Time Total Time Spent Total Time Spent (In Minutes): 60 Discharge Plan Discharge Items Patient Disposition: Home - Self-Care Reason For Visit: ACUTE DIVERTICULITIS Discharge Diagnosis: Acute Diverticulitis with Abscess Goals: You have been hospitalized for an acute medical problem. During your stay at [facility], we have made an effort to correct the problem that brought you to the hospital while keeping you as comfortable as possible. Medications were used to bring your condition under control and your discharge instructions will include directions for any medications you should take after leaving the hospital. Please make sure you see your Primary Care Provider as part of your follow up plan. Activity: Resume your previous activity Non-emergency contact: Primary Care Provider and [employer] Call non-emergency contact if: you have any medication questions, your symptoms worsen, your pain is not controlled and you have a fever Follow-up/Referrals: Gonzales Marcus MD [Primary Care Provider] - Vaibhav Reyes [Physician] - 04/11/21 12:40 pm (Your appointment will be with ) Diet: Heart Healthy, Low Fiber and Low Fat Addtl Attending Provider Instructions: You have been hospitalized for abdominal pain and found to have acute diverticulitis with abscess. You were seen by general surgery, gastroenterology, and infectious disease while in the hospital. You were managed with conservative treatment with IV antibiotics and slow advancement of your diet. You will need to continue on a low fiber diet for the next two weeks and advance as tolerated. You have been provided information on diet and what to avoid. You were treated with IV antibiotics and per recommendations by infectious disease, you will need to continue on Ciprofloxacin and Metronidazole for a total of three weeks and will need a repeat CT of your abdomen in 3 weeks to ensure resolution of the abscess. You will need to continue on Cipro/Flagyl for an additional 15 days to complete a 3 week course. Per ID, they would like you to have yogurt twice a day with these antibiotics. You will need to have a colonoscopy in 6-8 weeks after infection is healed and will be arranged by Dr Reyes. As discussed by myself and Dr Reyes, the abscess is sitting very low in the pelvis and there is a chance if it doesn't heal it may turn into a tract to your vagina. Please be aware of any RED FLAG signs such as increased drainage, pain, fever, etc and will need to return to [facility] if this occurs for repeat evaluation. You will need to follow up with your primary care provider and GI post- discharge. Please return to the emergency department with any fever, increased pain, inability to keep up with oral intake or for any other symptoms that are greg rning for you. It has been a pleasure being a part of the medical team providing for you while you have been in the hospital. Take care! Pending Studies at Discharge: Yes Studies:: stool studies -- no growth to date Stand-Alone Forms: My [facility] Medications and DC Order Prescriptions: New metronidazole 500 mg Tablet 500 mg PO TID 15 Days Qty: 45 RF: 0 ciprofloxacin HCl 500 mg Tablet 500 mg PO BID 15 Days Qty: 30 RF: 0 Continued calcium citrate-vitamin D3 315-200 mg-unit tablet 1 tab PO BID RF: 0 epinephrine 0.3 mg/0.3 mL auto-injector 1 ml subcut UD RF: 0 omega-3 fatty acids 1,000 mg capsule 1,000 mg PO DAILY RF: 0 Discharge Orders: Discharge Order (Routine); Ordered 03/29/21 Ordered By: Clau Briscoe/Other Patient Handouts: Low-Fiber Diet Admission Data Admit Date/Time: 03/24/21 12:14 Attending Provider: Elias Dutton Admit Provider: Marcus Kent Primary Care Provider: Gonzales Marcus Other Providers: Marcus Kent ; Juan J Pozo ; Alexander Giron ; Keisha Root ; Shay Antonio I. ; Prosper Romano II ; Nan Chappell ; Paddy Mascorro ; Vaibhav Reyes Other Interventions: Discharge Summary Assessment (RN) Last Done: 03/29/21 11:20 Coding Level of Care Code D/C Day Management >30 mins Diagnoses Diverticulitis of intestine with abscess K57.20 Diverticulitis bleeding: unspecified bleeding status Diverticulitis site: large intestine Hematochezia K92.1 Leukocytosis D72.829 Osteopenia after menopause M85.80 Hypertension I10 DVT prophylaxis Z29.9
[2021-03-29] MEDS ORDERED: CETIRIZINE HCL 10 MG TABLET PO ONE (10:45)
== END 2021-03-29 13:34 | disposition home or self-care (01) | DRG 392 ==
LOC: ED 10:13 → SUATTDRO 12:14 → 3E 12:14

== ENCOUNTER 2021-03-30 17:16 | Observation (INO) ==
[2021-03-30] MEDS ORDERED: SODIUM CHLORIDE 0.9% 1000ML 1,000 ML IV STA (18:30)
--- NOTE | 2021-03-30 18:36 | Emergency Department Note ---
Impression & Plan Colovaginal fistula, Colonic diverticular abscess ED Provider Note NAME: MICHAELA ROSE AGE: 76 SEX: F : 1945 ARRIVES VIA: Walk-In INFORMANT: Patient, ED PROVIDER(S): Jeffrey Knapp DO CHIEF COMPLAINT: Vaginal discharge HPI: The patient is a 76-year-old female who presented to the emergency department for vaginal discharge. The patient was recently discharged from our facility and diagnosed with diverticulitis with diverticular abscess. The abscess was noted to abut the vaginal cuff and she was told to come back to the emergency department if she developed any vaginal discharge. She called her family doctor today and was advised to come back to the emergency department. She is currently taking Cipro and Flagyl. She states that she has been compliant with this medication regimen. She denies having any fever. She has no abdominal pain. She denies having any diarrhea. She has had no extremity pain or swelling. She states her symptoms are mild to moderate at this time. It is worsens when she ambulates. ROS: See above HPI for pertinent positives & negatives. A total of 10 systems reviewed and were otherwise negative. PAST MEDICAL HISTORY: See Below PAST SURGICAL HISTORY: See Below FAMILY HISTORY: See Below SOCIAL HISTORY: See Below HOME MEDICATIONS: See Below ALLERGIES: See Below VITALS: See Below PHYSICAL EXAMINATION: GENERAL: Patient is awake alert in no acute distress patient is resting comfortably and showing no signs of anxiety EYES: The conjunctivae are clear. The pupils are round and reactive. EARS, NOSE, MOUTH AND THROAT: The nose is without any evidence of any deformity. NECK: The neck is nontender and supple. RESPIRATORY: Normal respiratory effort is noted there is no evidence of wheezing rhonchi or rales CARDIOVASCULAR: Regular rate and rhythm noted there no murmurs rubs or gallops normal S1 normal S2. GASTROINTESTINAL: The abdomen is soft and nondistended. There is no tenderness guarding or rigidity. MUSCULOSKELETAL/EXTREMITIES: There is no evidence of gross deformity full range of motion is noted in the hips and shoulders. SKIN: There is no obvious evidence of any rash. There are no petechiae, pallor or cyanosis noted. NEUROLOGIC: Patient is awake alert and oriented x3. MEDICAL DECISION MAKING: The patient is a 76-year-old female who presented to the emergency department for vaginal discharge. The patient had a history of a sigmoid diverticular abscess which appeared to be very approximate to her vaginal cuff. The patient was treated with antibiotics and was feeling much better. She was discharged from our facility recently because of these findings. She was told to return to the emergency department if she developed any signs of vaginal discharge. She started having vaginal discharge today. She called her primary care physician and was referred to the emergency department. The patient was treated with IV fluids in the emergency department. Laboratory studies were obtained. I discussed her case with the on-call general surgeon. He does recommend further medical admission and IV antibiotics until further radiographic studies can be obtained to determine if this is surgical management versus continued medical management. For this reason I [facility] to evaluate the patient in the emergency department. The patient was found to have an elevation in white blood cell count but no fever or worsening pain. I will defer inpatient antibiotic choice to the admitting team. Triage Nursing notes reviewed. Prior medical records reviewed Vital Signs: reviewed and remarkable for elevated blood pressure. Differential diagnosis: Cellulitis, abscess, MRSA infection, DVT, necrotizing fasciitis, dermatitis, drug eruption, allergic reaction, as well as other pathologies. ER treatment provided: See below Diagnostics interpreted by me: ECG: none Cardiac Monitoring: An order was placed for continuous cardiac monitoring. The monitor shows a rate of 85 bpm with sinus rhythm. Laboratory studies: As stated above and show below. Imaging studies: See below Consultation(s): 1844: I discussed this case with Dr. Connor who is on-call for general surgery. 1919: I discussed this case with Dr. Antonio who [facility] They will evaluate the patient in the emergency department for further management disposition. 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 Hyperlipidemia Osteopenia after menopause Polyp of sigmoid colon Surgical History History of total abdominal hysterectomy Family History Mother Alzheimer disease Breast cancer Thyroid disorder Father Hypertension Stroke Brother Hyperlipidemia type II Prostate cancer Polycythemia vera Denies family history of Ovarian cancer Myocardial infarction Colorectal cancer Social History Smoking Status: Never smoker Second Hand Exposure: No; Hx Alcohol Use: No Hx Substance Use: No Preferred Language: Greenlandic Communication Ability: Effective Visual Impairment: Limited Hearing Ability: Normal Med Care Manager Required: No Beliefs That Will Affect Care: None marital status: Current Living Situation: Spouse Current Living Situation Comment: with parkinsons current occupational status: retired How many Children do You have: 4 Feels Safe at Home: Yes Childhood Exposure to Second-Hand Smoke: Yes caffeine: Yes Dental Care, Regularly: Yes Physical Activity Frequency: 3-4 Times per Week Seatbelt Use: always Sunscreen Use: No Assistive Devices: Glasses Allergies Allergies Allergy/AdvReac Type Severity Reaction Status Date / Time bee venom protein (honey bee) Allergy Mild Unknown Unverified 03/24/21 10:48 No Known Drug Allergies Allergy Unknown Verified 03/24/21 10:48 Home Meds Home Medications Medication Instructions Recorded Confirmed epinephrine 0.3 mg/0.3 mL 1 ml SUBCUT UD 02/13/20 03/30/21 injection, auto-injector Previous Rx's Medication Instructions Recorded ciprofloxacin HCl 500 mg PO BID 15 Days #30 tab 03/29/21 metronidazole 500 mg PO TID 15 Days #45 tab 03/29/21 Results & Data (ED) Vital Signs Vital Signs - 24 hr 03/30/21 17:28 03/30/21 18:16 03/30/21 18:30 Temperature 36.9 C Temperature Source Temporal Artery Scan Pulse Rate 104 H 94 H 94 H Pulse Rate from SpO2 Sensor 93 H 94 H Respiratory Rate 20 12 21 Respiratory Effort / Characteristics Non-Labored Spontaneous Respiratory Depth Normal Respiratory Pattern Regular Blood Pressure 123/68 Blood Pressure Mean 86 Pulse Oximetry 97 94 95 Oxygen Delivery Method Room Air Sepsis Recent Fever Within 48 Hours No Sepsis New/Unexplained Change in Mental Status No Sepsis Action Taken by Nursing No Action Required 03/30/21 19:00 03/30/21 19:30 03/30/21 19:43 Temperature Temperature Source Pulse Rate 89 88 93 H Pulse Rate from SpO2 Sensor Respiratory Rate 24 22 Respiratory Effort / Characteristics Respiratory Depth Respiratory Pattern Blood Pressure 145/80 H Blood Pressure Mean 101 Pulse Oximetry Oxygen Delivery Method Sepsis Recent Fever Within 48 Hours Sepsis New/Unexplained Change in Mental Status Sepsis Action Taken by Nursing 03/30/21 20:00 03/30/21 20:01 03/30/21 20:30 Temperature Temperature Source Pulse Rate 93 H 90 83 Pulse Rate from SpO2 Sensor 94 H 90 83 Respiratory Rate 22 22 24 Respiratory Effort / Characteristics Respiratory Depth Respiratory Pattern Blood Pressure 163/79 H 143/69 H Blood Pressure Mean 107 93 Pulse Oximetry 96 96 95 Oxygen Delivery Method Sepsis Recent Fever Within 48 Hours Sepsis New/Unexplained Change in Mental Status Sepsis Action Taken by Nursing 03/30/21 20:31 03/30/21 21:00 03/30/21 21:01 Temperature Temperature Source Pulse Rate 86 86 88 Pulse Rate from SpO2 Sensor 86 87 87 Respiratory Rate 23 25 H 21 Respiratory Effort / Characteristics Respiratory Depth Respiratory Pattern Blood Pressure 145/84 H Blood Pressure Mean 104 Pulse Oximetry 95 93 95 Oxygen Delivery Method Sepsis Recent Fever Within 48 Hours Sepsis New/Unexplained Change in Mental Status Sepsis Action Taken by Nursing 03/30/21 21:36 03/30/21 21:37 03/30/21 22:00 Temperature Temperature Source Pulse Rate 89 93 H 82 Pulse Rate from SpO2 Sensor 88 93 H 82 Respiratory Rate 26 H 23 21 Respiratory Effort / Characteristics Respiratory Depth Respiratory Pattern Blood Pressure 156/90 H 142/85 H Blood Pressure Mean 112 104 Pulse Oximetry 93 93 94 Oxygen Delivery Method Sepsis Recent Fever Within 48 Hours Sepsis New/Unexplained Change in Mental Status Sepsis Action Taken by Nursing 03/30/21 22:37 03/30/21 23:00 03/30/21 23:01 Temperature Temperature Source Pulse Rate 90 80 84 Pulse Rate from SpO2 Sensor 91 H 80 84 Respiratory Rate 21 22 22 Respiratory Effort / Characteristics Respiratory Depth Respiratory Pattern Blood Pressure 141/76 H Blood Pressure Mean 97 Pulse Oximetry 93 92 93 Oxygen Delivery Method Sepsis Recent Fever Within 48 Hours Sepsis New/Unexplained Change in Mental Status Sepsis Action Taken by Detention Medications Current Medication List: was personally reviewed by me Laboratory Data Attestation: I reviewed the patient's lab results. Result diagrams: 03/30/21 18:27 03/30/21 18:27 Lab Results 03/30/21 03/30/21 03/30/21 Range/Units 18:27 18:27 18:27 WBC 18.33 H (4.8-10.8) K/uL RBC 4.13 L (4.2-5.4) M/uL Hgb 11.7 L (12.0-16.0) g/dL Hct 36.0 L (37-47) % MCV 87.2 (80-100) fL MCH 28.3 (25-34) pg MCHC 32.5 (32-36) g/dL RDW Std Deviation 43.9 (36.4-46.3) fL RDW Coeff of Tc 13.8 (11.5-14.5) % Plt Count 502 H (130-400) K/uL MPV 9.4 (7.4-10.4) fL Neutrophils % (Manual) 72.1 % Lymphocytes % (Manual) 15.7 % Monocytes % (Manual) 6.1 % Eosinophils % (Manual) 3.5 % Basophils % (Manual) 0.9 % Metamyelocytes % (Man) 1.7 % Neutrophils # (Manual) 13.22 H (1.4-6.5) K/uL Total Absolute Neuts 13.22 H (1.4-6.5) K/uL Lymphocytes # (Manual) 2.88 (1.2-3.4) K/uL Total Abs Lymphocytes 2.88 (1.2-3.4) K/uL Monocytes # (Manual) 1.12 H (0.11-0.59) K/uL Eosinophils # (Manual) 0.64 H (0-0.5) K/uL Basophils # (Manual) 0.16 (0-0.2) K/uL Metamyelocytes # (Man) 0.31 H (0-0) K/uL Polychromasia 1+ ESR Cancelled Sodium 135 L (136-145) mmol/L Potassium 4.2 D (3.5-5.1) mmol/L Chloride 102 (98-107) mmol/L Carbon Dioxide 26 (21-32) mmol/L Anion Gap 7.0 (3-11) BUN 12 D (7-18) mg/dl Creatinine 0.86 D (0.6-1.2) mg/dl Est Cr Clr Drug Dosing 51.8 ml/min Est GFR ( Amer) 75.5 ml/min Est GFR (Non-Af Amer) 65.2 ml/min BUN/Creatinine Ratio 13.9 (10-20) Glucose 104 H (70-99) mg/dl Calcium 9.9 (8.5-10.1) mg/dl Total Bilirubin 0.3 (0.2-1) mg/dl AST 66 H (15-37) U/L ALT 67 (12-78) U/L Alkaline Phosphatase 87 (45-117) U/L C-Reactive Protein 5.67 H (0-0.29) mg/dl Total Protein 8.1 D (6.4-8.2) gm/dl Albumin 3.3 L (3.4-5.0) gm/dl Globulin 4.8 H (2.5-4.0) gm/dl Albumin/Globulin Ratio 0.7 L (0.9-2) Procalcitonin (0-0.5) ng/ml Specimen Hemolysis COVID-19 Eval Order SARS-CoV-2 (PCR) (Negative) 03/30/21 03/30/21 03/30/21 Range/Units 19:26 20:50 20:50 WBC (4.8-10.8) K/uL RBC (4.2-5.4) M/uL Hgb (12.0-16.0) g/dL Hct (37-47) % MCV (80-100) fL MCH (25-34) pg MCHC (32-36) g/dL RDW Std Deviation (36.4-46.3) fL RDW Coeff of Tc (11.5-14.5) % Plt Count (130-400) K/uL MPV (7.4-10.4) fL Neutrophils % (Manual) % Lymphocytes % (Manual) % Monocytes % (Manual) % Eosinophils % (Manual) % Basophils % (Manual) % Metamyelocytes % (Man) % Neutrophils # (Manual) (1.4-6.5) K/uL Total Absolute Neuts (1.4-6.5) K/uL Lymphocytes # (Manual) (1.2-3.4) K/uL Total Abs Lymphocytes (1.2-3.4) K/uL Monocytes # (Manual) (0.11-0.59) K/uL Eosinophils # (Manual) (0-0.5) K/uL Basophils # (Manual) (0-0.2) K/uL Metamyelocytes # (Man) (0-0) K/uL Polychromasia ESR Sodium (136-145) mmol/L Potassium (3.5-5.1) mmol/L Chloride (98-107) mmol/L Carbon Dioxide (21-32) mmol/L Anion Gap (3-11) BUN (7-18) mg/dl Creatinine (0.6-1.2) mg/dl Est Cr Clr Drug Dosing ml/min Est GFR ( Amer) ml/min Est GFR (Non-Af Amer) ml/min BUN/Creatinine Ratio (10-20) Glucose (70-99) mg/dl Calcium (8.5-10.1) mg/dl Total Bilirubin (0.2-1) mg/dl AST (15-37) U/L ALT (12-78) U/L Alkaline Phosphatase (45-117) U/L C-Reactive Protein (0-0.29) mg/dl Total Protein (6.4-8.2) gm/dl Albumin (3.4-5.0) gm/dl Globulin (2.5-4.0) gm/dl Albumin/Globulin Ratio (0.9-2) Procalcitonin 0.08 (0-0.5) ng/ml Specimen Hemolysis COVID-19 Eval Order Covid19 at [facility] SARS-CoV-2 (PCR) NEGATIVE (Negative) Administered Medications Ciprofloxacin (Ciprofloxacin 500 Mg Tab) 500 mg PO BID JAZMINE Stop: 04/09/21 20:59 Last Admin: 03/30/21 20:47 Dose: 500 mg Documented by: [id number] Sodium Chloride (Nss 1000ml) 1,000 mls @ 125 mls/hr IV .Q8H STA Stop: 03/31/21 02:29 Last Admin: 03/30/21 19:04 Dose: 125 mls/hr Documented by: [id number] Metronidazole (Metronidazole 500 Mg Tab) 500 mg PO TID JAZMINE Stop: 04/09/21 20:59 Last Admin: 03/30/21 20:47 Dose: 500 mg Documented by: [id number] Discontinued Medications Ioversol (Optiray 320 100ml) 94 ml IV ONCE ONE Stop: 03/30/21 21:35 Last Admin: 03/30/21 21:34 Dose: 94 ml Documented by: [id number] Imaging Data Radiologist's Impression: Abdomen/Pelvis CT 03/30/21 20:[address] WITH IV CONTRAST CT DOSE: 478.93 mGy.cm HISTORY: Lower abdominal pain. diverticulitis w/ concern for fistula development TECHNIQUE: Multiaxial CT images of the abdomen and pelvis were performed following the use of intravenous contrast. A dose lowering technique was utilized adhering to the principles of ALARA. COMPARISON STUDY: Abdomen and pelvis CT 03/24/2021. FINDINGS: Mild colonic wall thickening and pericolonic fat stranding at the mid sigmoid colon has slightly improved. There is a persistent peripheral enhancing gas and fluid collection at the vaginal cuff/residual uterus which measures 3.7 cm. This is similar in size compared to the prior study. This abscess abuts the undersurface of the sigmoid colon and is therefore concerning for a fistula. No evidence for bowel obstruction. Fluid-filled large and small bowel. Mild thickening within the left posterior bladder wall which abuts the vaginal cuff abscess. No gas within the bladder lumen to suggest a fistula. Normal appendix. The heart is mildly enlarged. The liver, gallbladder, pancreas, spleen, adrenal glands, and kidneys remain unchanged. No hydronephrosis. No retroperitoneal lymphadenopathy. Calcified plaque within the normal caliber abdominal aorta. Small hiatus hernia. The lung bases are essentially clear. No suspicious lytic or blastic osseous lesions. Stable subcentimeter hypodense lesion within the lower pole the left kidney. This is technically too small to characterize. IMPRESSION: 1. Slight improvement in the sigmoid diverticulitis demonstrated by improvement in the bowel wall thickening and pericolonic inflammatory change. 2. No significant change in size of the 3.7 cm abscess at the vaginal cuff/residual uterus. This abuts the undersurface of the sigmoid colon is concerning for a colovaginal fistula. 3. No change in the left posterior lateral bladder wall thickening which is likely related to the adjacent abscess. 4. Additional findings as described above. ACT 112: Negative or not required by law. Electronically signed by: Romel De Los Santos M.D. 03/30/2021 9:48 PM Discharge Plan Visit Data Chief Complaint: Vaginal Discharge Stated Complaint: ABSCESS-LEAKING FROM VAGINA ED Provider: Jeffrey Knapp Discharge Problem: Colovaginal fistula, Colonic diverticular abscess Patient Disposition: Admitted As Inpatient Condition: Good Discharge Instructions Interventions: ED Discharge Assessment Last Done: 03/30/21 23:28 Forms Stand Alone Forms: [employer] Prescriptions Prescriptions: No Action epinephrine 0.3 mg/0.3 mL auto-injector 1 ml subcut UD RF: 0 metronidazole 500 mg Tablet 500 mg PO TID 15 Days Qty: 45 RF: 0 ciprofloxacin HCl 500 mg Tablet 500 mg PO BID 15 Days Qty: 30 RF: 0 Referrals Referrals: Gonzales Marcus MD [Primary Care Provider] -
[2021-03-30 18:40] LABS: Hemoglobin 11.7 g/dL (12.0-16.0); Mean Corpuscular Hemoglobin 28.3 pg (25-34); Mean Corpuscular Hgb Conc 32.5 g/dL (32-36); Mean Corpuscular Volume 87.2 fL (80-100); Mean Platelet Volume 9.4 fL (7.4-10.4); Platelet Count 502 K/uL (130-400); RDW Coefficient of Variation 13.8 % (11.5-14.5); RDW Standard Deviation 43.9 fL (36.4-46.3); Red Blood Count 4.13 M/uL (4.2-5.4); White Blood Count 18.33 K/uL (4.8-10.8)
[2021-03-30 19:11] LABS: Albumin Globulin Ratio 0.7 (0.9-2); Albumin Level 3.3 gm/dl (3.4-5.0); BUN Creatinine Ratio 13.9 (10-20); Bilirubin,Total 0.3 mg/dl (0.2-1); C Reactive Protein 5.67 mg/dl (0-0.29); Calcium 9.9 mg/dl (8.5-10.1); Creatinine Clr Calc Pharmacy 51.8 ml/min; Est GFR (African American) 75.5 ml/min; Est GFR (Non-African American) 65.2 ml/min; Globulin 4.8 gm/dl (2.5-4.0); Total Protein 8.1 gm/dl (6.4-8.2)
[2021-03-30 19:28] LABS: ALC (manual) 2.88 K/uL (1.2-3.4); ANC (manual) 13.22 K/uL (1.4-6.5); Basophils # (manual) 0.16 K/uL (0-0.2); Basophils % (manual) 0.9 %; Eosinophils # (manual) 0.64 K/uL (0-0.5); Eosinophils % (manual) 3.5 %; Lymphocytes # (manual) 2.88 K/uL (1.2-3.4); Lymphocytes % (manual) 15.7 %; Metamyelocytes # (manual) 0.31 K/uL (0-0); Metamyelocytes % (manual) 1.7 %; Monocytes # (manual) 1.12 K/uL (0.11-0.59); Monocytes % (manual) 6.1 %; Neutrophils # (manual) 13.22 K/uL (1.4-6.5); Neutrophils % (manual) 72.1 %; Polychromasia 1+
[2021-03-30 19:31] LABS: Potassium 4.2 mmol/L (3.5-5.1)
--- NOTE | 2021-03-30 20:36 | History & Physical Report ---
Date of Service March 30, 2021 Assessment & Plan (1) Diverticulitis of intestine with abscess: Darline Mathew is a 76y/o F with past medical history significant for recent diverticulitis with noted abscess; who presents for concerns of new vaginal discharge following recently being discharged from the hospital for the diverticular abscess. Diverticular abscess: -concern for development of vaginal fistula given the new drainage and previously demonstrated position of abscess -CT abd/pelv from 03/24 demonstratin. Advanced colonic diverticulosis with evidence of acute sigmoid diverticulitis. 2. There is a 3.9 cm diverticular abscess in the deep pelvis between the sigmoid colon and the vaginal cuff. 3. No intraperitoneal free air is identified. 4. Left posterolateral bladder wall thickening is likely related to adjacent diverticulitis. 5. Additional findings as above. -repeat CT abd/pelvis on 03/30 demonstratin. Slight improvement in the sigmoid diverticulitis demonstrated by improvement in the bowel wall thickening and pericolonic inflammatory change. 2. No significant change in size of the 3.7 cm abscess at the vaginal cuff/residual uterus. This abuts the undersurface of the sigmoid colon is concerning for a colovaginal fistula. 3. No change in the left posterior lateral bladder wall thickening which is likely related to the adjacent abscess. 4. Additional findings as described above. -elevated WBC count from discharge (18.33 from 11.36) -downtrending CRP from discharge (5.67 from 8.60) -genital culture pending -Surgery consulted in ED: no acute surgical intervention at this time -continue oral Ciprofloxacin and Flagyl at this time -admit to med/surg for continued observation Diet: CODE STATUS: Full code DVT ppx: Lovenox History of Present Illness Chief Complaint: Vaginal discharge Primary Care Provider: Gonzales Marcus MD Darline Mathew is a 76y/o F with past medical history significant for recent diver ticulitis with noted abscess; who presents for concerns of new vaginal discharge following recently being discharged from the hospital for the diverticular abscess. She has been regularly taking her antibiotics without difficulty. Was discharged on Ciprofloxacin, and Flagyl for control of her infection. Noted the greenish discharge approximately 12 hours after her discharge, and spoke with her PCP regarding this and was referred in for further potential surgical intervention. Has not had any return or development of: abdominal pain, nausea, vomiting, fevers, chills, sweats, inability to tolerate food or liquids, chest pain, or shortness of breath since her discharge. Allergies Allergy/AdvReac Type Severity Reaction Status Date / Time bee venom protein (honey bee) Allergy Mild Unknown Unverified 03/24/21 10:48 No Known Drug Allergies Allergy Unknown Verified 03/24/21 10:48 Home Medications Medication Instructions Recorded Confirmed Type epinephrine 0.3 mg/0.3 mL 1 ml SUBCUT UD 02/13/20 03/30/21 History injection, auto-injector ciprofloxacin HCl 500 mg PO BID 15 Days #30 tab 03/29/21 03/30/21 Rx metronidazole 500 mg PO TID 15 Days #45 tab 03/29/21 03/30/21 Rx Past Med/Surg History Medical History 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 Hyperlipidemia Osteopenia after menopause Polyp of sigmoid colon Surgical History History of total abdominal hysterectomy Family History Mother Alzheimer disease Breast cancer Thyroid disorder Father Hypertension Stroke Brother Hyperlipidemia type II Prostate cancer Polycythemia vera Denies family history of Ovarian cancer Myocardial infarction Colorectal cancer Social History Smoking Status: Never smoker Second Hand Exposure: No; Hx Alcohol Use: No Hx Substance Use: No Preferred Language: Iraqi Communication Ability: Effective Visual Impairment: Limited Hearing Ability: Normal Hospital Aide Required: No Beliefs That Will Affect Care: None marital status: Current Living Situation: Spouse Current Living Situation Comment: has parkinsons current occupational status: retired How many Children do You have: 4 Feels Safe at Home: Yes Safety Concerns: Feels Safe At This Time Childhood Exposure to Second-Hand Smoke: Yes caffeine: Yes Dental Care, Regularly: Yes Physical Activity Frequency: 3-4 Times per Week Seatbelt Use: always Sunscreen Use: No Assistive Devices: Contacts and Glasses Review of Systems Review of Systems: All systems reviewed & are unremarkable except as noted in HPI & below Physical Exam Constitutional: WD/WN, vitals as above Eyes: PERRL, conjunctivae normal, anicteric sclerae Respiratory: normal respiratory effort, lungs clear to auscultation Auscultation: no crackles, no rales, no rhonchi and no wheezes Cardiovascular: Rate/Rhythm: regular rate and regular rhythm Heart Sounds: no gallop, no murmur and no cardiac rub Vessels: normal peripheral pulses; no JVD Extremities: no edema Gastrointestinal (Abdomen): Inspection/Auscultation: normal bowel sounds; abdomen not distended Percussion/Palpation: abdomen soft; abdomen nontender and no guarding Musculoskeletal: no cyanosis or clubbing, extremities motor strength 5/5 Skin: no rashes, warm and dry Neurologic: PERRL, EOMI, accommodation nl, no face palsy, no dysarthria CN's II-XI intact bilaterally and moves all extremities Psychiatric: Orientation: alert and oriented x 3 Genitourinary: no external lesions, no external tenderness, no external swelling, no external erythema and no external ecchymosis Results & Data Results & Data ([facility]) Vital Signs (Past 12 Hours) Vital Signs Temp Pulse Resp BP Pulse Ox 03/30/21 19:43 93 H 22 145/80 H 03/30/21 19:30 88 24 03/30/21 19:00 89 03/30/21 18:30 94 H 21 95 03/30/21 18:16 94 H 12 94 03/30/21 17:28 36.9 C 104 H 20 123/68 97 Laboratory Results 03/30/21 03/30/21 03/30/21 Range/Units 18:27 18:27 18:27 WBC (4.8-10.8) K/uL RBC (4.2-5.4) M/uL Hgb (12.0-16.0) g/dL Hct (37-47) % MCV (80-100) fL MCH (25-34) pg MCHC (32-36) g/dL RDW Std Deviation (36.4-46.3) fL RDW Coeff of Tc (11.5-14.5) % Plt Count (130-400) K/uL MPV (7.4-10.4) fL Neutrophils % (Manual) % Lymphocytes % (Manual) % Monocytes % (Manual) % Eosinophils % (Manual) % Basophils % (Manual) % Metamyelocytes % (Man) % Neutrophils # (Manual) (1.4-6.5) K/uL Total Absolute Neuts (1.4-6.5) K/uL Lymphocytes # (Manual) (1.2-3.4) K/uL Total Abs Lymphocytes (1.2-3.4) K/uL Monocytes # (Manual) (0.11-0.59) K/uL Eosinophils # (Manual) (0-0.5) K/uL Basophils # (Manual) (0-0.2) K/uL Metamyelocytes # (Man) (0-0) K/uL Polychromasia ESR Cancelled Sodium 135 L (136-145) mmol/L Potassium 4.2 D (3.5-5.1) mmol/L Chloride 102 (98-107) mmol/L Carbon Dioxide 26 (21-32) mmol/L Anion Gap 7.0 (3-11) BUN 12 D (7-18) mg/dl Creatinine 0.86 D (0.6-1.2) mg/dl Est Cr Clr Drug Dosing 51.8 ml/min Est GFR ( Amer) 75.5 ml/min Est GFR (Non-Af Amer) 65.2 ml/min BUN/Creatinine Ratio 13.9 (10-20) Glucose 104 H (70-99) mg/dl Calcium 9.9 (8.5-10.1) mg/dl Total Bilirubin 0.3 (0.2-1) mg/dl AST 66 H (15-37) U/L ALT 67 (12-78) U/L Alkaline Phosphatase 87 (45-117) U/L C-Reactive Protein 5.67 H (0-0.29) mg/dl Total Protein 8.1 D (6.4-8.2) gm/dl Albumin 3.3 L (3.4-5.0) gm/dl Globulin 4.8 H (2.5-4.0) gm/dl Albumin/Globulin Ratio 0.7 L (0.9-2) Procalcitonin Pending Specimen Hemolysis 03/30/21 Range/Units 18:27 WBC 18.33 H (4.8-10.8) K/uL RBC 4.13 L (4.2-5.4) M/uL Hgb 11.7 L (12.0-16.0) g/dL Hct 36.0 L (37-47) % MCV 87.2 (80-100) fL MCH 28.3 (25-34) pg MCHC 32.5 (32-36) g/dL RDW Std Deviation 43.9 (36.4-46.3) fL RDW Coeff of Tc 13.8 (11.5-14.5) % Plt Count 502 H (130-400) K/uL MPV 9.4 (7.4-10.4) fL Neutrophils % (Manual) 72.1 % Lymphocytes % (Manual) 15.7 % Monocytes % (Manual) 6.1 % Eosinophils % (Manual) 3.5 % Basophils % (Manual) 0.9 % Metamyelocytes % (Man) 1.7 % Neutrophils # (Manual) 13.22 H (1.4-6.5) K/uL Total Absolute Neuts 13.22 H (1.4-6.5) K/uL Lymphocytes # (Manual) 2.88 (1.2-3.4) K/uL Total Abs Lymphocytes 2.88 (1.2-3.4) K/uL Monocytes # (Manual) 1.12 H (0.11-0.59) K/uL Eosinophils # (Manual) 0.64 H (0-0.5) K/uL Basophils # (Manual) 0.16 (0-0.2) K/uL Metamyelocytes # (Man) 0.31 H (0-0) K/uL Polychromasia 1+ ESR Sodium (136-145) mmol/L Potassium (3.5-5.1) mmol/L Chloride (98-107) mmol/L Carbon Dioxide (21-32) mmol/L Anion Gap (3-11) BUN (7-18) mg/dl Creatinine (0.6-1.2) mg/dl Est Cr Clr Drug Dosing ml/min Est GFR ( Amer) ml/min Est GFR (Non-Af Amer) ml/min BUN/Creatinine Ratio (10-20) Glucose (70-99) mg/dl Calcium (8.5-10.1) mg/dl Total Bilirubin (0.2-1) mg/dl AST (15-37) U/L ALT (12-78) U/L Alkaline Phosphatase (45-117) U/L C-Reactive Protein (0-0.29) mg/dl Total Protein (6.4-8.2) gm/dl Albumin (3.4-5.0) gm/dl Globulin (2.5-4.0) gm/dl Albumin/Globulin Ratio (0.9-2) Procalcitonin Specimen Hemolysis Medications Administered Current Inpatient Medications Ciprofloxacin (Ciprofloxacin 500 Mg Tab) 500 mg PO BID JAZMINE Stop: 04/09/21 20:59 Sodium Chloride (Nss 1000ml) 1,000 mls @ 125 mls/hr IV .Q8H STA Stop: 03/31/21 02:29 Last Admin: 03/30/21 19:04 Dose: 125 mls/hr Documented by: Metronidazole (Metronidazole 500 Mg Tab) 500 mg PO TID JAZMINE Stop: 04/09/21 20:59 Supervising Physician Co-Signing Physician Notes Patient seen and examined, chart reviewed, case discussed with Dr. Douglas and I agree with his assessment and plan as documented above. Patient with recent diverticulitis with abscess formation - presents with new vaginal discharge - possibly secondary to vaginal fistula formation On exam patient is afebrile, HD stable, NAD, nontoxic HEENT - NC/AT, PERRL, MMM, neck supple Heart - +S1/S2, regular Lungs - CTA Abd - +BS, soft, NT/ND Ext - No edema Labs and images reviewed. CT reveals slight improvement in the sigmoid diverticulitis. No significant change in size of 3.7cm abscess. Some concern for colovaginal fistula format ion. Elevated WBC count from discharge Genital cultures pending Assessment/Plan: -General surgery input appreciated -Continue Ciprofloxacin and Flagyl -Follow cultures -Remainder of plan as above Resident Activity Tracking Resident Involvement: Resident Care Provided Care Provided: Adult Hospital Medicine (1) Diverticulitis of intestine with abscess Diverticulitis bleeding: unspecified bleeding status Diverticulitis site: large intestine Qualified Code(s): K57.20 - Diverticulitis of large intestine with perforation and abscess without bleeding
[2021-03-30] MEDS: metroNIDAZOLE 500 MG TAB PO SCH (20:47)
[2021-03-30] MEDS: CIPROFLOXACIN 500 MG TAB PO SCH (20:47)
[2021-03-30] MEDS ORDERED: OPTIRAY 320 100ml IV ONE (21:34)
--- NOTE | 2021-03-30 21:50 | CT Scan Report ---
ABDOMEN AND PELVIS CT WITH IV CONTRAST CT DOSE: 478.93 mGy.cm HISTORY: Lower abdominal pain. diverticulitis w/ concern for fistula development TECHNIQUE: Multiaxial CT images of the abdomen and pelvis were performed following the use of intrave nous contrast. A dose lowering technique was utilized adhering to the principles of ALARA. COMPARISON STUDY: Abdomen and pelvis CT 03/24/2021. FINDINGS: Mild colonic wall thickening and pericolonic fat stranding at the mid sigmoid colon has sli ghtly improved. There is a persistent peripheral enhancing gas and fluid collection at the vaginal cu ff/residual uterus which measures 3.7 cm. This is similar in size compared to the prior study. This a bscess abuts the undersurface of the sigmoid colon and is therefore concerning for a fistula. No evid ence for bowel obstruction. Fluid-filled large and small bowel. Mild thickening within the left poste rior bladder wall which abuts the vaginal cuff abscess. No gas within the bladder lumen to suggest a fistula. Normal appendix. The heart is mildly enlarged. The liver, gallbladder, pancreas, spleen, adr enal glands, and kidneys remain unchanged. No hydronephrosis. No retroperitoneal lymphadenopathy. Brian cified plaque within the normal caliber abdominal aorta. Small hiatus hernia. The lung bases are esse ntially clear. No suspicious lytic or blastic osseous lesions. Stable subcentimeter hypodense lesion within the lower pole the left kidney. This is technically too small to characterize. IMPRESSION: 1. Slight improvement in the sigmoid diverticulitis demonstrated by improvement in the bowel wall thi ckening and pericolonic inflammatory change. 2. No significant change in size of the 3.7 cm abscess at the vaginal cuff/residual uterus. This abut s the undersurface of the sigmoid colon is concerning for a colovaginal fistula. 3. No change in the left posterior lateral bladder wall thickening which is likely related to the adj acent abscess. 4. Additional findings as described above. ACT 112: Negative or not required by law. Electronically signed by: Romel De Los Santos M.D. 03/30/2021 9:48 PM
[2021-03-31] MEDS ORDERED: POLYETHYLENE (MIRALAX) 17 GM PACK PO PRN (00:06)
[2021-03-31] MEDS ORDERED: ALUMINUM/MAGNESIUM SUSP 30 ML UDC PO PRN (00:06)
[2021-03-31] MEDS ORDERED: MAGNESIUM HYDROXIDE SUSP 30 ML UDC PO PRN (00:06)
[2021-03-31] MEDS ORDERED: ACETAMINOPHEN 325 MG TAB PO PRN (00:06)
[2021-03-31] MEDS ORDERED: ONDANSETRON INJ 2 MG/ML 2 ML VIAL IV PRN (00:06)
--- NOTE | 2021-03-31 02:52 | Billing Data ---
Date of Service March 30, 2021 Coding Level of Care Code 46604 Initial Inpt Care Lvl 2
[2021-03-31 06:30] LABS: Basophils # (auto) 0.02 K/uL (0-0.2); Basophils % (auto) 0.2 %; Eosinophils # (auto) 0.54 K/uL (0-0.5); Eosinophils % (auto) 4.3 %; Hematocrit (blood only) 32.4 % (37-47); Hemoglobin 10.4 g/dL (12.0-16.0); Immature Granulocytes # (auto) 0.19 K/uL (0.00-0.02); Immature Granulocytes % (auto) 1.5 %; Lymphocytes # (auto) 1.76 K/uL (1.2-3.4); Lymphocytes % (auto) 14.1 %; Mean Corpuscular Hgb Conc 32.1 g/dL (32-36); Mean Corpuscular Volume 87.3 fL (80-100); Mean Platelet Volume 8.9 fL (7.4-10.4); Monocytes # (auto) 1.25 K/uL (0.11-0.59); Neutrophils # (auto) 8.72 K/uL (1.4-6.5); Neutrophils % (auto) 69.9 %; Platelet Count 427 K/uL (130-400); RDW Coefficient of Variation 13.7 % (11.5-14.5); RDW Standard Deviation 43.7 fL (36.4-46.3); Red Blood Count 3.71 M/uL (4.2-5.4); White Blood Count 12.48 K/uL (4.8-10.8)
[2021-03-31 06:55] LABS: Albumin Globulin Ratio 0.7 (0.9-2); Albumin Level 2.7 gm/dl (3.4-5.0); BUN Creatinine Ratio 12.9 (10-20); Bilirubin,Total 0.2 mg/dl (0.2-1); C Reactive Protein 4.52 mg/dl (0-0.29); Calcium 8.7 mg/dl (8.5-10.1); Creatinine Clr Calc Pharmacy 50.9 ml/min; Est GFR (African American) 74.5 ml/min; Est GFR (Non-African American) 64.3 ml/min; Globulin 3.7 gm/dl (2.5-4.0); Potassium 3.5 mmol/L (3.5-5.1); Total Protein 6.4 gm/dl (6.4-8.2)
[2021-03-31] MEDS ORDERED: ENOXAPARIN INJ 40 MG/0.4 ML SYR SQ SCH (09:00)
[2021-03-31] MEDS: CIPROFLOXACIN 500 MG TAB PO SCH (09:17)
[2021-03-31] MEDS: metroNIDAZOLE 500 MG TAB PO SCH (09:17)
--- NOTE | 2021-03-31 09:40 | Surgery Consultation ---
Date of Consultation March 31, 2021 Assessment & Plan (1) Colonic diverticular abscess: May have developed colovaginal fistula, or abscess could be draining spontaneously although it appeared similar on CT. WBC improved. OK for d/c home on Cipro & Flagyl. Can follow-up with Dr. Pozo to discuss semi-elective resection. Seen with Dr. Connor. Supervising Physician Co-Signing Physician Notes Moderate amount of drainage vaginally spontaneously serous slightly sanguinous volume certainly decreased since admission The abdomen is completely benign CAT scan was reviewed At this point I would continue with p.o. antibiotics discharge accordingly and follow-up in our office Interesting that her white count was elevated even though she has spontaneous drainage through the vagina which most likely was a pelvic collection development of colovaginal fistula History of Present Illness Attending Physician: Jt Kg Linh History of Present Illness 76 y/o female with diverticular abscess known from previous admission and discharged two days ago. Presented last evening with vaginal drainage. Otherwise feels fine, no pain and tolerating diet. Allergies Allergy/AdvReac Type Severity Reaction Status Date / Time bee venom protein (honey bee) Allergy Mild Unknown Unverified 03/24/21 10:48 No Known Drug Allergies Allergy Unknown Verified 03/24/21 10:48 Home Medications Medication Instructions Recorded Confirmed Type epinephrine 0.3 mg/0.3 mL 1 ml SUBCUT UD 02/13/20 03/30/21 History injection, auto-injector ciprofloxacin HCl 500 mg PO BID 15 Days #30 tab 03/29/21 03/30/21 Rx metronidazole 500 mg PO TID 15 Days #45 tab 03/29/21 03/30/21 Rx Patient History Medical History 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 Hyperlipidemia Osteopenia after menopause Polyp of sigmoid colon Surgical History History of total abdominal hysterectomy Family History Mother Alzheimer disease Breast cancer Thyroid disorder Father Hypertension Stroke Brother Hyperlipidemia type II Prostate cancer Polycythemia vera Denies family history of Ovarian cancer Myocardial infarction Colorectal cancer Social History Smoking Status: Never smoker Second Hand Exposure: No; Hx Alcohol Use: No Hx Substance Use: No Preferred Language: Slovak Communication Ability: Effective Visual Impairment: Limited Hearing Ability: Normal 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 Beliefs That Will Affect Care: None marital status: Current Living Situation: Spouse Current Living Situation Comment: has parkinsons current occupational status: retired How many Children do You have: 4 Feels Safe at Home: Yes Safety Concerns: Feels Safe At This Time Childhood Exposure to Second-Hand Smoke: Yes caffeine: Yes Dental Care, Regularly: Yes Physical Activity Frequency: 3-4 Times per Week Seatbelt Use: always Sunscreen Use: No Assistive Devices: Contacts and Glasses Review of Systems Constitutional: no fever and no chills Gastrointestinal: no constipation Physical Exam Gastrointestinal (Abdomen): Inspection/Auscultation: abdomen not distended Percussion/Palpation: abdomen soft; abdomen nontender Results & Data ([facility]) Vital Signs (Past 12 Hours) Vital Signs Temp Pulse Pulse Resp BP BP Pulse Ox 03/31/21 08:32 36.8 C 79 18 147/81 H 95 03/30/21 23:40 36.8 C 79 16 152/81 H 95 03/30/21 23:01 84 22 93 03/30/21 23:00 80 22 141/76 H 92 03/30/21 22:37 90 21 93 03/30/21 22:00 82 21 142/85 H 94 03/30/21 21:37 93 H 23 156/90 H 93 03/30/21 21:36 89 26 H 93 PG Care Time/CCT Total # of Minutes Spent Total Time Spent with Patient: Total time spent is greater than 50% in coordination of care (as documented) at patient's floor/unit and/or counseling patient: Coding Level of Care Code 03081 Initial Inpt Care Lvl 1 Diagnoses Colonic diverticular abscess K57.20
--- NOTE | 2021-03-31 12:49 | Discharge Summary ---
Date of Service March 31, 2021 Admission HPI Per Admitting Provider Darline Mathew is a 76y/o F with past medical history significant for recent diverticulitis with noted abscess; who presents for concerns of new vaginal discharge following recently being discharged from the hospital for the diverticular abscess. She has been regularly taking her antibiotics without difficulty. Was discharged on Ciprofloxacin, and Flagyl for control of her infection. Noted the greenish discharge approximately 12 hours after her discharge, and spoke with her PCP regarding this and was referred in for further potential surgical intervention. Has not had any return or development of: abdominal pain, nausea, vomiting, fevers, chills, sweats, inability to tolerate food or liquids, chest pain, or shortness of breath since her discharge. Principal Diagnosis Acute diverticulitis with abscess Discharge Exam Constitutional: WD/WN, vitals as above Eyes: PERRL, conjunctivae normal, anicteric sclerae Respiratory: normal respiratory effort, lungs clear to auscultation Auscultation: no crackles, no rales, no rhonchi and no wheezes Cardiovascular: Rate/Rhythm: regular rate and regular rhythm Heart Sounds: no gallop, no murmur and no cardiac rub Vessels: normal peripheral pulses; no JVD Extremities: no edema Gastrointestinal (Abdomen): Inspection/Auscultation: normal bowel sounds; abdomen not distended Percussion/Palpation: abdomen soft; abdomen nontender and no guarding Musculoskeletal: no cyanosis or clubbing, extremities motor strength 5/5 Skin: no rashes, warm and dry Neurologic: PERRL, EOMI, accommodation nl, no face palsy, no dysarthria CN's II-XI intact bilaterally and moves all extremities Psychiatric: Orientation: alert and oriented x 3 Genitourinary: no external lesions, no external tenderness, no external swelling, no external erythema and no external ecchymosis Discharge Data Allergies Allergy/AdvReac Type Severity Reaction Status Date / Time bee venom protein (honey bee) Allergy Mild Unknown Unverified 03/24/21 10:48 No Known Drug Allergies Allergy Unknown Verified 03/24/21 10:48 Consultations 03/30/21 18:50 Consult General Surgery Stat 03/30/21 19:12 ED Decision to Admit Stat Ordered Studies 03/30/21 20:50 CT abd pelvis IV con only Urgent Hospital Course (1) Diverticulitis of intestine with abscess: Darline Mathew is a 76y/o F with past medical history significant for recent diverticulitis with noted abscess; who presents for concerns of new vaginal discharge following recently being discharged from the hospital for the diverticular abscess. Diverticular abscess: -concern for development of vaginal fistula given the new drainage and previously demonstrated position of abscess -CT abd/pelv from 03/24 demonstratin. Advanced colonic diverticulosis with evidence of acute sigmoid diverticulitis. 2. There is a 3.9 cm diverticular abscess in the deep pelvis between the sigmoid colon and the vaginal cuff. 3. No intraperitoneal free air is identified. 4. Left posterolateral bladder wall thickening is likely related to adjacent diverticulitis. 5. Additional findings as above. -repeat CT abd/pelvis on 03/30 demonstratin. Slight improvement in the sigmoid diverticulitis demonstrated by improvement in the bowel wall thickening and pericolonic inflammatory change. 2. No significant change in size of the 3.7 cm abscess at the vaginal cuff/residual uterus. This abuts the undersurface of the sigmoid colon is concerning for a colovaginal fistula. 3. No change in the left posterior lateral bladder wall thickening which is likely related to the adjacent abscess. 4. Additional findings as described above. -elevated WBC count from discharge (18.33 from 11.36) -downtrending CRP from discharge (5.67 from 8.60) -genital culture pending -Surgery consulted in ED: no acute surgical intervention at this time -continue oral Ciprofloxacin and Flagyl at this time -admit to med/surg for continued observation On discharge: Appreciate input from General Surgery Moderate amount of drainage vaginally spontaneously serous slightly sanguinous volume certainly decreased since admission The abdomen is completely benign CAT scan was reviewed At this point I would continue with p.o. antibiotics discharge accordingly and follow-up in our office Interesting that her white count was elevated even though she has spontaneous drainage through the vagina which most likely was a pelvic collection development of colovaginal fistula Patient is agreeable with discharge. Total Time Total Time Spent Total Time Spent (In Minutes): 32 Total Time Includes: Examination of the Patient, Discharge Planning and Medication Reconciliation Discharge Plan Discharge Items Patient Disposition: Home - Self-Care Reason For Visit: DIVERTICULAR ABSCESS WITH LIKELY FISTULA Discharge Diagnosis: Diverticular abscess with fistula Condition on Discharge: Good Activity: Resume your previous activity Non-emergency contact: Primary Care Provider Call non-emergency contact if: you have any medication questions Follow-up/Referrals: Gonzales Marcus MD [Primary Care Provider] - Diet: Regular Addtl Attending Provider Instructions: Followup with your appointment with Surgery within 1-2 weeks. Please continue your antibiotics as stated before. If you develop any worsening pain, fever, chills, vomiting, please return to the hospital. Pending Studies at Discharge: No Stand-Alone Forms: My [facility], Smoking Cessation Medications and DC Order Prescriptions: Continued epinephrine 0.3 mg/0.3 mL auto-injector 1 ml subcut UD RF: 0 metronidazole 500 mg Tablet 500 mg PO TID 15 Days Qty: 45 RF: 0 ciprofloxacin HCl 500 mg Tablet 500 mg PO BID 15 Days Qty: 30 RF: 0 Discharge Orders: Discharge Order (Routine); Ordered 03/31/21 Ordered By: Jt Briscoe/Other Patient Handouts: Low-Fiber Diet, Controlling High Blood Pressure, How the Colon Works, ED Abscess, Antibiotic Treatment Only, ED Diverticulitis Admission Data Admit Date/Time: 03/30/21 21:16 Attending Provider: Jt Melton Admit Provider: Tonny Douglas Primary Care Provider: Gonzales Marcus Other Providers: Ayan Connor ; Megan Antonio Other Interventions: Discharge Summary Assessment (RN) Last Done: 03/31/21 13:50 Coding Level of Care Code 69641 OBS Care - Discharge Diagnoses Diverticulitis of intestine with abscess K57.20 Diverticulitis bleeding: unspecified bleeding status Diverticulitis site: large intestine
== END 2021-03-31 14:38 | disposition home or self-care (01) ==
LOC: ED 17:16 → 3W 17:16 → SUATTDRO 21:16 → 3W 23:28
DX: K57.20 Diverticulitis of large intestine with perforation and abscess without bleeding; E78.5 Hyperlipidemia, unspecified; Z91.030 Bee allergy status; Z79.899 Other long term (current) drug therapy

== ENCOUNTER 2023-09-19 11:39 | Inpatient (IN) ==
[2023-09-19] MEDS ORDERED: ACETAMINOPHEN 500 MG TAB PO STA (12:12)
--- NOTE | 2023-09-19 12:50 | Emergency Department Note ---
ED Provider Note History of Present Illness Chief Complaint: Leg Injury/Pain Stated Complaint: LT LEG PAIN Time Seen by Provider: 09/19/23 12:02 Source: patient Mode of arrival: ambulatory Limitations: no limitations This patient is a 78-year-old female who presents to the emergency department for evaluation of an injury to her left leg. Patient reports that she slipped and fell going down her porch steps today and landed onto her left leg. She reports that she did not have pain immediately but was unable to stand up/bear weight on the leg. She states that pain seems to be from the knee down the lower leg. She denies any pain in the hip. She did not strike her head. She denies any other injuries. Home Medications Medication Instructions Recorded Confirmed Type acetaminophen 325 mg capsule 325 mg PO QID PRN pain/fever 01/22/22 09/19/23 History (Tylenol) calcium carbonate 600 mg calcium 600 mg PO BID 09/19/23 09/19/23 History (1,500 mg) tablet (Calcium) rosuvastatin 5 mg tablet 5 mg PO QAM 09/19/23 09/19/23 History Allergies Allergy/AdvReac Type Severity Reaction Status Date / Time bee venom protein (honey bee) Allergy Mild Unknown Verified 07/08/23 11:06 No Known Drug Allergies Allergy Unknown Verified 07/08/23 11:06 Past Med/Surg History Medical History (Updated 09/20/23 @ 21:06 by Georgie Ross PA-C) Hematochezia 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 Hyperlipidemia Osteopenia after menopause Polyp of sigmoid colon Surgical History History of total abdominal hysterectomy Family History Mother Alzheimer disease Breast cancer Thyroid disorder Father Hypertension Stroke Brother Hyperlipidemia type II Prostate cancer Polycythemia vera Denies family history of Ovarian cancer Diabetes Myocardial infarction Lung cancer Colorectal cancer Social History Smoking Status: Never smoker Second Hand Exposure: No; Do You Dip or Chew Tobacco: No; Hx Alcohol Use: Yes Alcohol type: wine Alcohol Intake Frequency: Monthly or Less Hx Substance Use: No Preferred Language: Mongolian Communication Ability: Effective Visual Impairment: Limited Hearing Ability: Normal Poem Writer Required: No Beliefs That Will Affect Care: None marital status: / Current Living Situation: Alone Current Living Situation Comment: has parkinsons current occupational status: retired How many Children do You have: 4 Other Information That Helps Us Care for You: No Feels Safe at Home: Yes Safety Concerns: Feels Safe At This Time Childhood Exposure to Second-Hand Smoke: Yes caffeine: Yes Dental Care, Regularly: Yes Physical Activity Frequency: 3-4 Times per Week Seatbelt Use: always Sunscreen Use: Yes Assistive Devices: Contacts and Glasses Physical Exam Vital Signs Vital Signs - 24 hr 09/19/23 11:49 Temperature 36.8 C Temperature Source Temporal Artery Scan Pulse Rate 70 Respiratory Rate 18 Blood Pressure 172/77 H Blood Pressure Mean 108 Pulse Oximetry 96 Oxygen Delivery Method Room Air Sepsis Recent Fever Within 48 Hours No Sepsis New/Unexplained Change in Mental Status No Sepsis Action Taken by Nursing No Action Required VITALS: Vitals are noted on the nurse's note and reviewed by myself. GENERAL: This is a 78-year-old female, in no acute distress, well-developed well-nourished. SKIN: The skin was without rashes, erythema, edema, or bruising. MUSCULOSKELETAL: There is no deformity. There is slight tenderness to palpation of the proximal tibia/fibula. Patient has pain with movement of the knee. No tenderness of the ankle or foot. NEURO: Patient was alert and oriented. Distal sensation intact. Course Administered Medications Acetaminophen (Acetaminophen 325 Mg Tab) 650 mg PO Q4H PRN PRN Reason: Fever/Mild Pain (Pain 1,2,3) Stop: 10/19/23 18:36 Last Admin: 09/20/23 17:44 Dose: 650 mg Documented By: Admin: 09/20/23 01:48 Dose: 650 mg Documented By: Admin: 09/19/23 20:51 Dose: 650 mg Documented By: KALE Aspirin (Aspirin 325 Mg Ectab) 325 mg PO [facility] Stop: 10/20/23 19:14 Last Admin: 09/20/23 20:44 Dose: 325 mg Documented By: KALE Morphine Sulfate (Morphine Sulfate 2 Mg/Ml Carp) 1 mg IV Q4H PRN PRN Reason: Moderate Pain (4,5,6) on NRS Stop: 10/03/23 18:36 Last Admin: 09/20/23 09:08 Dose: 1 mg Documented By: ADB Rosuvastatin Calcium (Rosuvastatin Calcium 5 Mg Tab) 5 mg PO QAM [facility] Stop: 10/20/23 08:59 Last Admin: 09/20/23 08:33 Dose: 5 mg Documented By: ADB Vitamin D (Cholecalciferol 5,000 Units 125 Mcg Tab) 5,000 units PO QAM JAZMINE Stop: 10/20/23 09:44 Last Admin: 09/20/23 11:13 Dose: 5,000 units Documented By: ADRaquel Discontinued Medications Acetaminophen (Acetaminophen 500 Mg Tab) 1,000 mg PO NOW STA Stop: 09/19/23 12:13 Last Admin: 09/19/23 12:33 Dose: 1,000 mg Documented By: CC Lactated Ringer's (Lr) 1,000 mls @ 80 mls/hr IV .[id number] JAZMINE Stop: 10/20/23 00:00 Last Infusion: 09/20/23 11:50 Dose: Infused Documented By: Admin: 09/20/23 00:08 Dose: 80 mls/hr Documented By: KALE Medical Decision Making Differential Diagnosis Fracture, subluxation, dislocation, contusion, ligamentous injury, neurovascular, compartment syndrome, rhabdomyolysis, as well as other pathologies. Home Medications was personally reviewed by me Laboratory Data Attestation: I reviewed the patient's lab results. 09/20/23 08:13 09/20/23 08:13 Lab Results 09/19/23 Range/Units 16:18 WBC 15.61 H (4.8-10.8) K/ul RBC 3.96 L (4.20-5.40) M/uL Hgb 11.4 L (12.0-16.0) g/dl Hct 34.6 L (37.0-47.0) % MCV 87.4 (80.0-100.0) fL MCH 28.8 (25.0-34.0) pg MCHC 32.9 (32.0-36.0) g/dL RDW Std Deviation 40.9 (36.4-46.3) fL RDW Coeff of Tc 13.0 (11.5-14.5) % Plt Count 340 (130-400) K/uL MPV 9.8 (9.4-12.4) fL Immature Gran % (Auto) 0.3 % Neut % (Auto) 78.1 % Lymph % (Auto) 16.1 % [place] % (Auto) 4.9 % Eos % (Auto) 0.2 % Baso % (Auto) 0.4 % Neut # (Auto) 12.18 H (1.40-6.50) K/uL Lymph # (Auto) 2.51 (1.20-3.40) K/uL [place] # (Auto) 0.77 H (0.11-0.59) K/uL Eos # (Auto) 0.03 (0.00-0.50) K/uL Baso # (Auto) 0.07 (0.00-0.20) K/uL Immature Gran # (Auto) 0.05 (0.01-0.20) K/uL Sodium 138 (136-145) mmol/L Potassium 3.6 (3.5-5.1) mmol/L Chloride 103 (98-107) mmol/L Carbon Dioxide 29 (21-32) mmol/L Anion Gap 6 (3-11) BUN 17 (6-23) mg/dl Creatinine 0.67 (0.6-1.2) mg/dl Est Cr Clr Drug Dosing 65.9 ml/min Est GFR ( Amer) 96.9 ml/min Est GFR (Non-Af Amer) 83.6 ml/min BUN/Creatinine Ratio 25.4 H (10-20) Glucose 195 H (70-99(Fasting)) mg/dl Calcium 9.8 (8.6-10.3) mg/dl Imaging Data Attestation: I personally reviewed and interpreted this imaging study as follows: Radiologist's Impression: Knee X-Ray 09/19/23 12:12 XR knee LT 3V, XR tibia fibula LT 2V CLINICAL HISTORY: left leg pain, fall, cannot bear wt on leg COMPARISON STUDY: None. FINDINGS: Nondisplaced fracture at the lateral tibial plateau and a slightly impacted/displaced fracture within the left fibular head. There is associated moderate lipohemarthrosis within the left knee. The distal tibia and distal fibula are intact. IMPRESSION: 1. Nondisplaced lateral tibial plateau fracture. 2. Slightly impacted/displaced fracture within the left fibular head. 3. Moderate lipohemarthrosis within the left knee. ACT 112: Negative or not required by law. Electronically signed by: Romel De Los Santos M.D. 09/19/2023 1:07 PM Tibia/Fibula X-Ray 09/19/23 12:12 XR knee LT 3V, XR tibia fibula LT 2V CLINICAL HISTORY: left leg pain, fall, cannot bear wt on leg COMPARISON STUDY: None. FINDINGS: Nondisplaced fracture at the lateral tibial plateau and a slightly impacted/displaced fracture within the left fibular head. There is associated moderate lipohemarthrosis within the left knee. The distal tibia and distal fibula are intact. IMPRESSION: 1. Nondisplaced lateral tibial plateau fracture. 2. Slightly impacted/displaced fracture within the left fibular head. 3. Moderate lipohemarthrosis within the left knee. ACT 112: Negative or not required by law. Electronically signed by: Romel De Los Santos M.D. 09/19/2023 1:[address] 09/19/23 13:[address] DOSE: 390.75 mGy.cm HISTORY: Left knee pain. tibial plateau fracture TECHNIQUE: Multiaxial CT images of the left knee were performed and reformatted in the sagittal and coronal plane without the use of contrast. A dose lowering technique was utilized adhering to the principles of ALARA. COMPARISON: Left knee radiograph 09/19/2023. FINDINGS: The distal femur and patella appear intact. There is a moderate lipohemarthrosis. Soft tissue swelling within the left knee. Mild vascular calcifications are noted. There is again noted a comminuted and mildly depressed/displaced fracture involving the left fibular head. This demonstrates up to 3 mm of depression and 3 mm of medial displacement. There is also a comminuted fracture extending through the posterior aspect of the proximal tibia which involves the medial tibial plateau, lateral tibial plateau, and tibial spines. This extends into the proximal metaphysis of the left tibia. The lateral tibial plateau component demonstrates up to 4 mm of distraction and up to 2.6 mm of depression posteriorly. IMPRESSION: 1. Redemonstration of the comminuted and slightly displaced fractures involving the proximal tibia and proximal fibula as described above. 2. Moderate lipohemarthrosis. ACT 112: Negative or not required by law. Electronically signed by: Romel De Los Santos M.D. 09/19/2023 2:23 PM Chest X-Ray 09/19/23 15:53 XR chest 1V portable HISTORY: Preop evaluation. Left leg fracture. COMPARISON: None. FINDINGS: The cardiac silhouette is top normal in size. The lungs are clear. No pleural effusions. No pneumothorax. No evidence for pulmonary edema. No acute fractures. IMPRESSION: No acute process. ACT 112: Negative or not required by law. Electronically signed by: Romel De Los Santos M.D. 09/19/2023 4:53 PM MDM Narrative This patient is a 78-year-old female who presents to the emergency department for evaluation of an injury to her left lower leg. X-rays were obtained and showed a tibial plateau as well as proximal fibula fracture. Case was discussed with Dr. Mendoza from orthopedics, who recommended obtaining a CT scan and placing the patient in a hinged knee brace. I discussed with the patient and her daughter whether she would be able to be discharged home or should stay in the hospital. The patient lives by herself and there are several steps up to her house. She was agreeable with admission. The case was then discussed with the [facility] [place] Division[facility] service, who agreed to evaluate the patient for further care Impression Tibial plateau fracture, left, Fracture of fibula, proximal Discharge Plan Visit Data Chief Complaint: Leg Injury/Pain Stated Complaint: LT LEG PAIN ED Provider: Fredy Ordoñez ED Midlevel Provider: Georgie Ross Discharge Problem: Tibial plateau fracture, left, Fracture of fibula, proximal Patient Disposition: Admitted As Inpatient Discharge Instructions Interventions: ED Discharge Assessment Last Done: 09/19/23 17:36
--- NOTE | 2023-09-19 13:09 | XRay Report ---
XR knee LT 3V, XR tibia fibula LT 2V CLINICAL HISTORY: left leg pain, fall, cannot bear wt on leg COMPARISON STUDY: None. FINDINGS: Nondisplaced fracture at the lateral tibial plateau and a slightly impacted/displaced fract ure within the left fibular head. There is associated moderate lipohemarthrosis within the left knee. The distal tibia and distal fibula are intact. IMPRESSION: 1. Nondisplaced lateral tibial plateau fracture. 2. Slightly impacted/displaced fracture within the left fibular head. 3. Moderate lipohemarthrosis within the left knee. ACT 112: Negative or not required by law. Electronically signed by: Romel De Los Santos M.D. 09/19/2023 1:07 PM
--- NOTE | 2023-09-19 13:32 | Emergency Department Note ---
ED Visit Note I was consulted by the Advanced Practice Provider. The case was discussed at length. The patient does have a tibial plateau fracture with a fracture of the proximal fibula. Orthopedics has been consulted. A CT of this area has been ordered. Hospitalization seems likely as the patient is unable to ambulate. .
--- NOTE | 2023-09-19 14:26 | CT Scan Report ---
LEFT KNEE CT CT DOSE: 390.75 mGy.cm HISTORY: Left knee pain. tibial plateau fracture TECHNIQUE: Multiaxial CT images of the left knee were performed and reformatted in the sagittal and c oronal plane without the use of contrast. A dose lowering technique was utilized adhering to the lex nciRyan. COMPARISON: Left knee radiograph 09/19/2023. FINDINGS: The distal femur and patella appear intact. There is a moderate lipohemarthrosis. Soft tiss ue swelling within the left knee. Mild vascular calcifications are noted. There is again noted a comm inuted and mildly depressed/displaced fracture involving the left fibular head. This demonstrates up to 3 mm of depression and 3 mm of medial displacement. There is also a comminuted fracture extending through the posterior aspect of the proximal tibia which involves the medial tibial plateau, lateral tibial plateau, and tibial spines. This extends into the proximal metaphysis of the left tibia. The l ateral tibial plateau component demonstrates up to 4 mm of distraction and up to 2.6 mm of depression posteriorly. IMPRESSION: 1. Redemonstration of the comminuted and slightly displaced fractures involving the proximal tibia an d proximal fibula as described above. 2. Moderate lipohemarthrosis. ACT 112: Negative or not required by law. Electronically signed by: Romel De Los Santos M.D. 09/19/2023 2:23 PM
--- NOTE | 2023-09-19 15:55 | History & Physical Report ---
Date of Service September 19, 2023 Assessment & Plan (1) Tibia/fibula fracture: Plan: Tibial plateau fracture CTleft knee: Comminuted and slightly displaced proximal tibia and proximal fibular fracture. Moderate lipohemarthrosis director call center sales ortho consulted by ER. No emergent intervention needed, patient recommended for [facility] orthopedic eval with whom patient is already established for prior history of tendinitis, no history of surgical procedures. Dr. Gonzalez/[facility] Ortho consulted, knee immobilizer in place Pain control, Tylenol first-line, scaled morphine as needed RCRI class I risk, 0 points. Baseline creatinine is less than 1 with GFR greater than 60. She has never been on insulin. No chest pain, chest pressure or anginal symptoms. No history of ischemic disease. No history of CHF. No history of TIA/stroke. 3.9% 30-day risk of perioperative mortality. No optimize blood risk factors at time of admission. N.p.o. at midnight prior to anticipated surgery, no surgery anticipated today and will continue on regular diet EKG without territorial ST segment change or T wave inversions. No ischemic symptoms. CXR clear, lungs CTAB and no hx lung disease. Pain control, Tylenol first-line, scaled morphine second line. Patient with adequate pain control when not moving Hemoglobin last approximately 12, 11.4 on admission. (2) Hyperlipidemia: Plan: Hyperlipidemia Rosuvastatin continued (3) Hypertension: Plan: Noted on chart, patient denies history of this and reports her blood pressure is normal at home without medications. Chart review shows some intermittent hypertension, with baseline pressures in 120s. Will continue pain control for fracture, no antihypertensive is indicated at time of admission. No symptoms of hypertension Plan SCDs: Pharmacoprophylaxis deferred due to acute fracture and hemarthrosis. Diet: N.p.o. at midnight Disposition: Medical/surgical CODE STATUS: Full code History of Present Illness Primary Care Provider: Angie English MD Darline is a 78-year-old female with past medical history of diet-controlled hypertension, hyperlipidemia on rosuvastatin, and no history of ischemic disease, type II DM, or CKD who slipped and fell onto her left leg and was unable to weight-bear and who was found to have a tibial plateau fracture. She did not have any lightheadedness, dizziness, syncope, presyncope that led to her fall and did not have any head strike. Case was discussed with on-call orthopedics Dr. Yip who with, patient is recommended for a hinged knee brace and consult to [facility] orthopedics with whom the patient has followed previously for operative repair. Hinged knee brace not available in the ER and patient was placed in an immobilizer. She was recommended for medical admission due to age for preoperative review. She does reports that she missed a step while walking which caused her to fall and strike her leg with immediate pain and inability to bear weight on attempted standing. She reports she fell due to missing the step did not have any symptoms that led to her fall. She did not strike her head. She reports she does not have pain at rest but her leg is very painful if she attempts to move the left leg, most painful at around the knee. Darline reports that she has a history of hyperlipidemia for which she takes a statin. She denies any other medical problems. She denies history of hypertension and notes that she has not needed to be on any blood pressure medications and with her blood pressure has been intermittently high in the past is normal at home. She denies any chest pressure, chest pain, or exertional shortness of breath recently. She has had no lightheadedness, dizziness, syncope, or presyncope. No nausea/vomiting. Denies history of kidney disease. Denies history of diabetes. She denies any personal or family history of blood clots or bleeding disorders. She denies any medication allergies. She has never used tobacco products, uses alcohol socially rarely. No recreational drug use. She is full code. Allergies Allergy/AdvReac Type Severity Reaction Status Date / Time bee venom protein (honey bee) Allergy Mild Unknown Verified 07/08/23 11:06 No Known Drug Allergies Allergy Unknown Verified 07/08/23 11:06 Home Medications Medication Instructions Recorded Confirmed Type acetaminophen 325 mg capsule 325 mg PO QID PRN pain/fever 01/22/22 09/19/23 History (Tylenol) calcium carbonate 600 mg calcium 600 mg PO BID 09/19/23 09/19/23 History (1,500 mg) tablet (Calcium) rosuvastatin 5 mg tablet 5 mg PO QAM 09/19/23 09/19/23 History Past Med/Surg History Medical History (Updated 09/19/23 @ 16:07 by Gonzales Freeman MD) Hematochezia 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 Hyperlipidemia Osteopenia after menopause Polyp of sigmoid colon Surgical History History of total abdominal hysterectomy Family History Mother Alzheimer disease Breast cancer Thyroid disorder Father Hypertension Stroke Brother Hyperlipidemia type II Prostate cancer Polycythemia vera Denies family history of Ovarian cancer Diabetes Myocardial infarction Lung cancer Colorectal cancer Social History Smoking Status: Never smoker Second Hand Exposure: No; Do You Dip or Chew Tobacco: No; Hx Alcohol Use: Yes Alcohol type: wine Alcohol Intake Frequency: Monthly or Less Hx Substance Use: No Preferred Language: Vietnamese Communication Ability: Effective Visual Impairment: Limited Hearing Ability: Normal Pipelines Laborer Required: No Beliefs That Will Affect Care: None marital status: / Current Living Situation: Alone Current Living Situation Comment: has parkinsons current occupational status: retired How many Children do You have: 4 Feels Safe at Home: Yes Childhood Exposure to Second-Hand Smoke: Yes caffeine: Yes Dental Care, Regularly: Yes Physical Activity Frequency: 3-4 Times per Week Seatbelt Use: always Sunscreen Use: Yes Assistive Devices: Contacts and Glasses Physical Exam Physical Exam: General: A&Ox3. NAD. Cooperative. HEENT: Atraumatic, normocephalic. Vision/hearing intact Pulm: CTAB A&P. -wheezes, -rales, -rhonchi. Symmetrical chest rise. No increased work of breathing. No respiratory distress. Cardiac: RRR, -mrg. Radial pulses intact and symmetrical. Abdominal: Nontender, nondistended, soft. BS present. Extremities: Left knee swollen and with diffuse ttp most prominent along the lateral joint line. PT/DP pulse intact bilaterally. Sensation of soft touch intact in feet bilaterally. Ankle dorsiflexion/plantarflexion 5/5 bilaterally. Results & Data Results & Data Vital Signs (Past 12 Hours) Vital Signs Temp Pulse Resp BP Pulse Ox O2 Del Method 09/19/23 11:49 36.8 C 70 18 172/77 H 96 Room Air PG Care Time/CCT Total # of Minutes Spent Total Time Spent with Patient: Total time spent is greater than 50% in coordination of care (as documented) at patient's floor/unit and/or counseling patient: Coding Level of Care Code 74953 INT INP/OBS CARE Diagnoses Tibia/fibula fracture S82.209A; S82.409A Hyperlipidemia E78.5 Hypertension I10
[2023-09-19 16:31] LABS: Basophils # (auto) 0.07 K/uL (0.00-0.20); Basophils % (auto) 0.4 %; Eosinophils # (auto) 0.03 K/uL (0.00-0.50); Eosinophils % (auto) 0.2 %; Hematocrit (blood only) 34.6 % (37.0-47.0); Hemoglobin 11.4 g/dl (12.0-16.0); Immature Granulocytes # (auto) 0.05 K/uL (0.01-0.20); Immature Granulocytes % (auto) 0.3 %; Lymphocytes # (auto) 2.51 K/uL (1.20-3.40); Lymphocytes % (auto) 16.1 %; Mean Corpuscular Hemoglobin 28.8 pg (25.0-34.0); Mean Corpuscular Hgb Conc 32.9 g/dL (32.0-36.0); Mean Corpuscular Volume 87.4 fL (80.0-100.0); Mean Platelet Volume 9.8 fL (9.4-12.4); Monocytes # (auto) 0.77 K/uL (0.11-0.59); Monocytes % (auto) 4.9 %; Neutrophils # (auto) 12.18 K/uL (1.40-6.50); Neutrophils % (auto) 78.1 %; Platelet Count 340 K/uL (130-400); RDW Standard Deviation 40.9 fL (36.4-46.3); Red Blood Count 3.96 M/uL (4.20-5.40); White Blood Count 15.61 K/ul (4.8-10.8)
[2023-09-19 16:44] LABS: BUN Creatinine Ratio 25.4 (10-20); Calcium 9.8 mg/dl (8.6-10.3); Creatinine Clr Calc Pharmacy 65.9 ml/min; Est GFR (African American) 96.9 ml/min; Est GFR (Non-African American) 83.6 ml/min; Potassium 3.6 mmol/L (3.5-5.1)
--- NOTE | 2023-09-19 16:55 | XRay Report ---
XR chest 1V portable HISTORY: Preop evaluation. Left leg fracture. COMPARISON: None. FINDINGS: The cardiac silhouette is top normal in size. The lungs are clear. No pleural effusions. No pneumothorax. No evidence for pulmonary edema. No acute fractures. IMPRESSION: No acute process. ACT 112: Negative or not required by law. Electronically signed by: Romel De Los Santos M.D. 09/19/2023 4:53 PM
--- NOTE | 2023-09-19 18:32 | Orthopedic Consultation ---
Date of Consultation September 19, 2023 Assessment & Plan (1) Tibial plateau fracture, left: She has a moderately comminuted but minimally displaced bicondylar tibial plateau fracture in her left knee. No evidence of compartment syndrome. With minimal displacement, I would recommend nonoperative treatment for now. She has already been placed in a hinged knee brace. She may do gentle range of motion of her knee with the brace in place at all times. She is to remain strictly nonweightbearing on that left leg. She will need physical therapy for gait training with walker use to remain nonweightbearing on that left leg. She normally lives alone, and will likely need rehab placement based on physical therapy's assessment of her assistance requirements. She notes that she is an established patient of Dr. Gonzalez. She may follow-up with either Dr. Gonzalez at [facility] or at [facility] as she desires after discharge. I would recommend follow-up in orthopedics clinic with repeat x-rays within 1 week to assess for any displacement of this fracture. Orthopedics will sign off. History of Present Illness Reason for Consultation: Left tibial plateau fracture History of Present Illness Ms. Mathew is a 78-year-old female who fell down 3 steps onto her left leg and hip earlier today. She did not feel much pain in her knee until she attempted to stand, and was unable to bear weight on her left leg. Of note, she had a DEXA scan 2 years ago where apparently she was told that her bones were slightly thin. She is not on any osteoporosis medications. She is scheduled for an updated DEXA scan this coming week. Allergies Allergy/AdvReac Type Severity Reaction Status Date / Time bee venom protein (honey bee) Allergy Mild Unknown Verified 07/08/23 11:06 No Known Drug Allergies Allergy Unknown Verified 07/08/23 11:06 Home Medications Medication Instructions Recorded Confirmed Type acetaminophen 325 mg capsule 325 mg PO QID PRN pain/fever 01/22/22 09/19/23 History (Tylenol) calcium carbonate 600 mg calcium 600 mg PO BID 09/19/23 09/19/23 History (1,500 mg) tablet (Calcium) rosuvastatin 5 mg tablet 5 mg PO QAM 09/19/23 09/19/23 History Patient History Medical History (Updated 09/19/23 @ 18:38 by Truong Mendoza M.D.) Hematochezia 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 Hyperlipidemia Osteopenia after menopause Polyp of sigmoid colon Surgical History History of total abdominal hysterectomy Family History Mother Alzheimer disease Breast cancer Thyroid disorder Father Hypertension Stroke Brother Hyperlipidemia type II Prostate cancer Polycythemia vera Denies family history of Ovarian cancer Diabetes Myocardial infarction Lung cancer Colorectal cancer Social History Smoking Status: Never smoker Second Hand Exposure: No; Do You Dip or Chew Tobacco: No; Hx Alcohol Use: Yes Alcohol type: wine Alcohol Intake Frequency: Monthly or Less Hx Substance Use: No Preferred Language: Occitan Communication Ability: Effective Visual Impairment: Limited Hearing Ability: Normal Steelworker Required: No Beliefs That Will Affect Care: None marital status: / Current Living Situation: Alone Current Living Situation Comment: has parkinsons current occupational status: retired How many Children do You have: 4 Feels Safe at Home: Yes Childhood Exposure to Second-Hand Smoke: Yes caffeine: Yes Dental Care, Regularly: Yes Physical Activity Frequency: 3-4 Times per Week Seatbelt Use: always Sunscreen Use: Yes Assistive Devices: Contacts and Glasses Physical Exam Physical Exam: Examination of the left knee reveals no open wounds. Mild swelling around the proximal tibia area. Very small knee joint effusion. Range of motion was not tested due to pain. Compartments are soft and compressible. Motor and sensory function is intact distally. Foot is warm and well-perfused. No pain with passive stretch. Results & Data Vital Signs (Past 12 Hours) Vital Signs Temp Pulse Pulse Resp BP BP Pulse Ox 09/19/23 17:36 90 20 131/76 97 09/19/23 16:24 89 18 152/69 H 96 09/19/23 11:49 36.8 C 70 18 172/77 H 96 O2 Del Method 09/19/23 17:36 Room Air 09/19/23 16:24 Room Air 09/19/23 11:49 Room Air Diagnostic Findings X-rays and CT scan of the left knee were independently interpreted by me. It shows a moderately comminuted but minimally displaced bicondylar tibial plateau fracture. There is some mild depression of the posterior lateral aspect of the tibial plateau, but fracture line does extend over to the posterior medial aspect of the plateau but is nondisplaced in that area. Minimal comminution of the articular surface, and overall good alignment of the knee without significant valgus deformity. Mildly displaced comminuted associated fibular head fracture. Minimal underlying arthritis. (1) Tibial plateau fracture, left Encounter type: initial encounter Fracture type: closed Qualified Code(s): S82.142A - Displaced bicondylar fracture of left tibia, initial encounter for closed fracture
[2023-09-19] MEDS ORDERED: MoRPHine SULFATE 2 MG/ML CARP IV PRN ×2 (18:37)
[2023-09-19] MEDS ORDERED: ACETAMINOPHEN 325 MG TAB PO PRN (18:37)
[2023-09-19] MEDS: ACETAMINOPHEN 325 MG TAB PO PRN (20:51)
[2023-09-20] MEDS ORDERED: LACTATED RINGER'S 1,000 ML IV SCH
[2023-09-20] MEDS: ACETAMINOPHEN 325 MG TAB PO PRN ×2 (01:48→17:44)
--- NOTE | 2023-09-20 07:48 | Electrocardiogram Report ---
Test Reason : Blood Pressure : / mmHG Vent. Rate : 077 BPM Atrial Rate : 077 BPM P-R Int : 152 ms QRS Dur : 084 ms QT Int : 394 ms P-R-T Axes : 065 040 047 degrees QTc Int : 445 ms Normal sinus rhythm Normal ECG When compared with ECG of 22-JUL-1993 17:27, No significant change Confirmed by Ghassan Scott ([id number]) on 09/20/2023 7:48:20 AM Referred By: REFERRED SELF Confirmed By:Ghassan Scott
[2023-09-20] MEDS: ROSUVASTATIN CALCIUM 5 MG TAB PO SCH (08:33)
[2023-09-20 08:34] LABS: Basophils # (auto) 0.04 K/uL (0.00-0.20); Basophils % (auto) 0.5 %; Eosinophils # (auto) 0.01 K/uL (0.00-0.50); Eosinophils % (auto) 0.1 %; Hemoglobin 9.7 g/dl (12.0-16.0); Immature Granulocytes # (auto) 0.03 K/uL (0.01-0.20); Immature Granulocytes % (auto) 0.3 %; Lymphocytes # (auto) 2.11 K/uL (1.20-3.40); Lymphocytes % (auto) 24.1 %; Mean Corpuscular Hemoglobin 29.1 pg (25.0-34.0); Mean Corpuscular Hgb Conc 33.4 g/dL (32.0-36.0); Mean Corpuscular Volume 87.1 fL (80.0-100.0); Mean Platelet Volume 9.6 fL (9.4-12.4); Monocytes # (auto) 0.68 K/uL (0.11-0.59); Monocytes % (auto) 7.8 %; Neutrophils # (auto) 5.89 K/uL (1.40-6.50); Neutrophils % (auto) 67.2 %; Platelet Count 269 K/uL (130-400); RDW Standard Deviation 41.1 fL (36.4-46.3); Red Blood Count 3.33 M/uL (4.20-5.40); White Blood Count 8.76 K/ul (4.8-10.8)
[2023-09-20 08:50] LABS: BUN Creatinine Ratio 26.2 (10-20); Calcium 8.9 mg/dl (8.6-10.3); Creatinine Clr Calc Pharmacy 66.9 ml/min; Est GFR (African American) 97.9 ml/min; Est GFR (Non-African American) 84.4 ml/min; Potassium 3.9 mmol/L (3.5-5.1)
--- NOTE | 2023-09-20 09:41 | Hospitalist Progress Note ---
Date of Service September 20, 2023 Assessment & Plan (1) Tibia/fibula fracture: Plan: Tibial plateau fracture (mechanical fall, reports no dizziness or weakness at time of fall, denies hitting her head) CTleft knee: Comminuted and slightly displaced proximal tibia and proximal fibular fracture. Moderate lipohemarthrosis Ortho Consult (already established with Dr. Gonzalez) - hinged knee brace - Left leg non weight bearing - follow up in clinic with repeat xrays in one week - no planned surgical intervention - resume regular diet - EKG and CXR completed for preop if needed. -PT/OT Pain control, Tylenol first-line, scaled morphine as needed Hemoglobin last approximately 12, 11.4 on admission. - Vit D 06/2023: 39.8 - patient reports taking Vit D at home, PO supplementation restarted (2) Hyperlipidemia: Plan: Hyperlipidemia Rosuvastatin continued (3) Hypertension: Plan: Noted on chart, patient denies history of this and reports her blood pressure is normal at home without medications. Chart review shows some intermittent hypertension, with baseline pressures in 120s. Will continue pain control for fracture, no antihypertensive is indicated at time of admission. No symptoms of hypertension Plan VTE proh: discussed with ortho ASA 325 QD Disposition: Medical/surgical CODE STATUS: Full code Admission and Anticipated Discharge Date Admission Date: September 19, 2023 Supervising Physician Co-Signing Physician Notes Attending Attestation - Chart reviewed, care plan d/w SHEFALI Younger. I agree w/ the baires components of her documentation. Marcus Garcia MD Subjective 1011 - patient seen sitting in bed. Recently had morphine for pain, and has controlled pain well. Has not been out of bed yet. Is still hoping to see Dr. Gonzalez during her stay. Decreased appetite but is still eating. Denies abdominal pain or nausea. No chest pain or SOB. Denies melena, hematemesis. No blood seen in vazquez bag. Review of Systems Review of Systems: All systems reviewed & are unremarkable except as noted in Subjective Physical Exam Physical Exam: General: WN/WD, NAD, VS as above Resp: normal respiratory effort, lungs clear to auscultation CV: RRR, no murmur, no edema Abd: normal bowel sounds, non tender, no hepatosplenomegaly Extremities: Left leg hinged knee brace in place, good pedal pulses Neuro: A&O x3, Skin: intact, no lesions noted Results & Data Results & Data Vital Signs (Past 12 Hours) Vital Signs Temp Pulse Resp BP Pulse Ox O2 Del Method 09/20/23 08:30 Room Air 09/20/23 07:00 36.5 C 78 16 132/72 95 Room Air Laboratory Results Reviewed CBC and chemistry Diagnostic Findings Reviewed CXR, Knee XR, Knee Ct and Tib/Fib XR PG Care Time/CCT Total # of Minutes Spent Total Time Spent with Patient: Total time spent is greater than 50% in coordination of care (as documented) at patient's floor/unit and/or counseling patient: Coding Level of Care Code 71587 SUB INP/OBS CARE 2/35MIN Diagnoses Tibia/fibula fracture S82.209A; S82.409A Hyperlipidemia E78.5 Hypertension I10
[2023-09-20] MEDS: CHOLECALCIFEROL 5,000 UNITS 125 MCG TAB PO SCH (11:13)
[2023-09-20] MEDS: ASPIRIN 325 MG ECTAB PO SCH (20:44)
[2023-09-21] MEDS: ASPIRIN 325 MG ECTAB PO SCH (08:14)
[2023-09-21] MEDS: ROSUVASTATIN CALCIUM 5 MG TAB PO SCH (08:14)
[2023-09-21] MEDS: CHOLECALCIFEROL 5,000 UNITS 125 MCG TAB PO SCH (08:14)
[2023-09-21 08:56] LABS: Basophils # (auto) 0.06 K/uL (0.00-0.20); Basophils % (auto) 0.7 %; Eosinophils # (auto) 0.05 K/uL (0.00-0.50); Eosinophils % (auto) 0.6 %; Hemoglobin 9.7 g/dl (12.0-16.0); Immature Granulocytes # (auto) 0.02 K/uL (0.01-0.20); Immature Granulocytes % (auto) 0.2 %; Lymphocytes % (auto) 30.5 %; Mean Corpuscular Hemoglobin 29.2 pg (25.0-34.0); Mean Corpuscular Hgb Conc 33.4 g/dL (32.0-36.0); Mean Corpuscular Volume 87.3 fL (80.0-100.0); Mean Platelet Volume 9.9 fL (9.4-12.4); Monocytes # (auto) 0.69 K/uL (0.11-0.59); Monocytes % (auto) 8.4 %; Neutrophils # (auto) 4.89 K/uL (1.40-6.50); Neutrophils % (auto) 59.6 %; Platelet Count 267 K/uL (130-400); RDW Coefficient of Variation 13.1 % (11.5-14.5); RDW Standard Deviation 42.1 fL (36.4-46.3); Red Blood Count 3.32 M/uL (4.20-5.40); White Blood Count 8.21 K/ul (4.8-10.8)
[2023-09-21 09:16] LABS: BUN Creatinine Ratio 18.5 (10-20); Calcium 8.9 mg/dl (8.6-10.3); Creatinine Clr Calc Pharmacy 80.5 ml/min; Est GFR (Non-African American) 89.8 ml/min; Potassium 3.9 mmol/L (3.5-5.1)
--- NOTE | 2023-09-21 22:02 | Hospitalist Progress Note ---
Date of Service September 21, 2023 Assessment & Plan (1) Tibia/fibula fracture: Plan: LEFT Tibial plateau fracture + proximal left fibular fracture (mechanical fall, reports no dizziness or weakness at time of fall, denies hitting her head). CTleft knee: Comminuted and slightly displaced proximal tibia and proximal fibular fracture. Moderate lipohemarthrosis. Ortho Consult appreciated; seen by both Dr Mendoza earlier in the stay and today - Dr. Gonzalez - hinged knee brace recommended - Left leg non weight bearing - follow up in clinic with repeat xrays in 1 week - no planned surgical intervention Cont PT/OT, tylenol prn, etc 25-OH Vit D level 06/2023: 39.8 - patient reports taking Vit D at home, PO supplementation restarted (5000 IU daily) Doing well from ortho standpoint (2) Acute blood loss anemia: Plan: Hb 11.4 at admission Hb 9.7 today mild drop since admission - likely blood loss in the tissues of the left leg from the tib-fib fracture; lipohemarthrosis also seen on imaging of L knee no report of GI blood loss - no melena or BRBPR reported repeat CBC am would benefit from ferrous sulfate daily x 1-2 months upon discharge (3) Murmur: Plan: I cannot find any record of a prior murmur nor an echo Murmur could be outflow tract murmur due to acute anemia but it is fairly loud Will obtain echo for more information She does report getting dizzy with ascending steps but no other CV symptoms (4) Hyperlipidemia: Plan: Cont Rosuvastatin (5) Hypertension: Plan: Noted on chart but patient denies history of this and reports her blood pressure is normal at home without medications. Chart review shows some intermittent hypertension, with baseline pressures in 120s. Would not Rx her BPs at this time. Plan VTE proph: discussed with orthopedics - ASA 325mg QD x 6 weeks f/u Dr Gonzalez, [facility] - 1 week post discharge dispo - [facility] - should be ready tomorrow on 09/22 Admission and Anticipated Discharge Date Admission Date: September 19, 2023 Subjective no events overnight she feels well sitting in chair by window eating well +BM today saw Dr Gonzalez today - again no surgical intervention of tib-fib fractures LLE advised no significant pain today of left knee / left leg Review of Systems Review of Systems: cv - no chest pain pulm - no dyspnea GI - no abd pain/nausea/emesis Physical Exam Physical Exam: gen - sitting in chair, very pleasant, looks well mouth - MMM neck - no JVD heart - 2-3/6 systolic murmur heard all over chest; does radiate to left axillae; loudest LLSB lungs - CTA b/l abd - soft NT ND BS+ ext - trace-1+ edema L ankle, none on right; pulses 2+ b/l musculo - left knee / left leg in hinged knee brace Results & Data Results & Data Vital Signs (Past 12 Hours) Vital Signs Temp Pulse Pulse Resp BP BP Pulse Ox 09/21/23 20:45 09/21/23 15:25 36.8 C 81 16 124/71 95 09/21/23 11:58 36.7 C 77 16 132/75 94 O2 Del Method 09/21/23 20:45 Room Air 09/21/23 15:25 Room Air 09/21/23 11:58 Room Air Laboratory Results Laboratory Results - last 24 hr 09/21/23 08:03 WBC 8.21 RBC 3.32 L Hgb 9.7 L Hct 29.0 L MCV 87.3 MCH 29.2 MCHC 33.4 RDW Std Deviation 42.1 RDW Coeff of Tc 13.1 Plt Count 267 MPV 9.9 Immature Gran % (Auto) 0.2 Neut % (Auto) 59.6 Lymph % (Auto) 30.5 [place] % (Auto) 8.4 Eos % (Auto) 0.6 Baso % (Auto) 0.7 Neut # (Auto) 4.89 Lymph # (Auto) 2.50 [place] # (Auto) 0.69 H Eos # (Auto) 0.05 Baso # (Auto) 0.06 Immature Gran # (Auto) 0.02 Sodium 139 Potassium 3.9 Chloride 105 Carbon Dioxide 30 Anion Gap 4 BUN 10 Creatinine 0.54 L Est Cr Clr Drug Dosing 80.5 Est GFR ( Amer) 104.0 Est GFR (Non-Af Amer) 89.8 BUN/Creatinine Ratio 18.5 Glucose 103 H Calcium 8.9 PG Care Time/CCT Total # of Minutes Spent Total Time Spent with Patient: Total time spent is greater than 50% in coordination of care (as documented) at patient's floor/unit and/or counseling patient: Coding Level of Care Code 25302 SUB INP/OBS CARE MIN Diagnoses Tibia/fibula fracture S82.209A; S82.409A Acute blood loss anemia D62 Murmur R01.1 Hyperlipidemia E78.5 Hypertension I10
--- NOTE | 2023-09-22 06:15 | Orthopedic Consultation ---
Date of Service September 22, 2023 Assessment & Plan (1) Tibial plateau fracture, left: I discussed the diagnosis and treatment options with Darline and her daughter at bedside. Fortunately this can be treated nonoperatively. Lateral tibial plateau fractures usually heal fine on their own. She will be nonweightbearing for 6 weeks. We will keep her in the brace and I will increase range of motion in the brace over the first 6 weeks. She is orthopedically stable for discharge when medically ready. She should follow-up with my office next week for repeat x-rays to ensure there is been no further depression of the fracture. Our office phone number is [phone]. History of Present Illness Reason for Consultation: Left tibial plateau fracture. Requesting Physician: . Attending Physician: Marcus Garcia MD Darline is a pleasant 78-year-old female who fell down 3 stairs about 3 days ago. She injured her left leg. She she was unable to bear weight on it. She came to the emergency room where x-rays and CT scan showed a minimally displaced lateral tibial plateau fracture. She was admitted to the hospitalist service. Orthopedics was consulted to evaluate and treat.. Allergies Allergy/AdvReac Type Severity Reaction Status Date / Time bee venom protein (honey bee) Allergy Mild Unknown Verified 07/08/23 11:06 No Known Drug Allergies Allergy Unknown Verified 07/08/23 11:06 Home Medications Medication Instructions Recorded Confirmed Type acetaminophen 325 mg capsule 325 mg PO QID PRN pain/fever 01/22/22 09/19/23 History (Tylenol) calcium carbonate 600 mg calcium 600 mg PO BID 09/19/23 09/19/23 History (1,500 mg) tablet (Calcium) rosuvastatin 5 mg tablet 5 mg PO QAM 09/19/23 09/19/23 History Past Med/Surg History Medical History Hematochezia 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 Hyperlipidemia Osteopenia after menopause Polyp of sigmoid colon Surgical History History of total abdominal hysterectomy Family History Mother Alzheimer disease Breast cancer Thyroid disorder Father Hypertension Stroke Brother Hyperlipidemia type II Prostate cancer Polycythemia vera Denies family history of Ovarian cancer Diabetes Myocardial infarction Lung cancer Colorectal cancer Social History Smoking Status: Never smoker Second Hand Exposure: No; Do You Dip or Chew Tobacco: No; Hx Alcohol Use: Yes Alcohol type: wine Alcohol Intake Frequency: Monthly or Less Hx Substance Use: No Preferred Language: Stateless Communication Ability: Effective Visual Impairment: Limited Hearing Ability: Normal Top Coater Required: No Beliefs That Will Affect Care: None marital status: / Current Living Situation: Alone Current Living Situation Comment: has parkinsons current occupational status: retired How many Children do You have: 4 Other Information That Helps Us Care for You: No Feels Safe at Home: Yes Safety Concerns: Feels Safe At This Time Childhood Exposure to Second-Hand Smoke: Yes caffeine: Yes Dental Care, Regularly: Yes Physical Activity Frequency: 3-4 Times per Week Seatbelt Use: always Sunscreen Use: Yes Assistive Devices: Cane and Walker Review of Systems All systems reviewed & are unremarkable except as noted in HPI & below. Physical Exam On physical examination of her left knee, she has a functional ACL brace on at this time. It is locked in full extension. She has active dorsiflexion plantarflexion of her left ankle. There is no gross deformity. She does have some pain over the lateral tibial plateau.. Constitutional WD/WN, vitals as above Eyes PERRL, conjunctivae normal, anicteric sclerae ENMT external ear and nose normal, oropharynx normal Neck trachea midline, no thyromegaly Respiratory normal respiratory effort Cardiovascular RRR, no murmur, no edema Gastrointestinal (Abdomen) normal bowel sounds, soft, nontender, no hepatosplenomegaly Psychiatric A+Ox3, euthymic affect Results & Data Results & Data Laboratory Results . Diagnostic Findings X-rays and CT scan of the left knee were reviewed. They do show a minimally displaced lateral tibial plateau fracture.. PG Care Time/CCT Total # of Minutes Spent Total Time Spent with Patient: Total time spent is greater than 50% in coordination of care (as documented) at patient's floor/unit and/or counseling patient: Coding Level of Care Code 13648 IN/OBS CONSULT LVL 4,60M Diagnoses Closed fracture of left tibial plateau, initial encounter S82.142A
[2023-09-22 07:24] LABS: Basophils # (auto) 0.03 K/uL (0.00-0.20); Basophils % (auto) 0.3 %; Eosinophils # (auto) 0.29 K/uL (0.00-0.50); Hematocrit (blood only) 28.4 % (37.0-47.0); Hemoglobin 9.2 g/dl (12.0-16.0); Immature Granulocytes # (auto) 0.02 K/uL (0.01-0.20); Immature Granulocytes % (auto) 0.2 %; Lymphocytes # (auto) 2.28 K/uL (1.20-3.40); Mean Corpuscular Hemoglobin 28.4 pg (25.0-34.0); Mean Corpuscular Hgb Conc 32.4 g/dL (32.0-36.0); Mean Corpuscular Volume 87.7 fL (80.0-100.0); Mean Platelet Volume 9.7 fL (9.4-12.4); Monocytes # (auto) 0.71 K/uL (0.11-0.59); Monocytes % (auto) 7.5 %; Neutrophils # (auto) 6.18 K/uL (1.40-6.50); Platelet Count 263 K/uL (130-400); RDW Coefficient of Variation 12.9 % (11.5-14.5); RDW Standard Deviation 41.5 fL (36.4-46.3); Red Blood Count 3.24 M/uL (4.20-5.40); White Blood Count 9.51 K/ul (4.8-10.8)
[2023-09-22 07:40] LABS: BUN Creatinine Ratio 23.2 (10-20); Calcium 8.3 mg/dl (8.6-10.3); Creatinine Clr Calc Pharmacy 77.6 ml/min; Est GFR (African American) 102.8 ml/min; Est GFR (Non-African American) 88.7 ml/min; Potassium 3.8 mmol/L (3.5-5.1)
[2023-09-22] MEDS: ROSUVASTATIN CALCIUM 5 MG TAB PO SCH (08:43)
[2023-09-22] MEDS: CHOLECALCIFEROL 5,000 UNITS 125 MCG TAB PO SCH (08:43)
[2023-09-22] MEDS: ASPIRIN 325 MG ECTAB PO SCH (08:43)
[2023-09-22] MEDS ORDERED: FERROUS SULFATE 325 MG TAB PO SCH (10:30)
--- NOTE | 2023-09-22 12:51 | XCELERA ---
[id number]
--- NOTE | 2023-09-22 17:30 | Discharge Summary ---
Date of Service September 22, 2023 Admission HPI Per Admitting Provider Darline is a 78-year-old female with past medical history of diet-controlled hypertension, hyperlipidemia on rosuvastatin, and no history of ischemic disease, type II DM, or CKD who slipped and fell onto her left leg and was unable to weight-bear and who was found to have a tibial plateau fracture. She did not have any lightheadedness, dizziness, syncope, presyncope that led to her fall and did not have any head strike. Case was discussed with on-call orthopedics Dr. Yip who with, patient is recommended for a hinged knee brace and consult to [facility] orthopedics with whom the patient has followed previously for operative repair. Hinged knee brace not available in the ER and patient was placed in an immobilizer. She was recommended for medical admission due to age for preoperative review. She does reports that she missed a step while walking which caused her to fall and strike her leg with immediate pain and inability to bear weight on attempted standing. She reports she fell due to missing the step did not have any symptoms that led to her fall. She did not strike her head. She reports she does not have pain at rest but her leg is very painful if she attempts to move the left leg, most painful at around the knee. Darline reports that she has a history of hyperlipidemia for which she takes a statin. She denies any other medical problems. She denies history of hypertension and notes that she has not needed to be on any blood pressure medications and with her blood pressure has been intermittently high in the past is normal at home. She denies any chest pressure, chest pain, or exertional shortness of breath recently. She has had no lightheadedness, dizziness, syncope, or presyncope. No nausea/vomiting. Denies history of kidney disease. Denies history of diabetes. She denies any personal or family history of blood clots or bleeding disorders. She denies any medication allergies. She has never used tobacco products, uses alcohol socially rarely. No recreational drug use. She is full code. Principal Diagnosis Left tibia/fibula fracture, nonoperative Discharge Exam PHYSICAL EXAMINATION Last 24h vital signs reviewed, see documentation in flowsheet General: comfortable appearing, no distress, sitting up in the chair by the window HEENT: Normocephalic, atraumatic, pupils round and equal, sclerae anicteric, no conjunctival injection, moist mucus membranes Lungs: Normal respiratory effort. Clear to auscultation bilaterally. No RRW Heart: Regular rate and rhythm, no murmurs. No JVD Abdomen: Soft, nondistended. Bowel sounds present. Extremities: Warm, dry, well-perfused. No extremity edema. left leg and knee immobilizer brace. Foot is warm and well-perfused Neuro: Alert and oriented x 4, face symmetric, moves 4 extremities well Psych: Normal affect and behavior Discharge Data Allergies Allergy/AdvReac Type Severity Reaction Status Date / Time bee venom protein (honey bee) Allergy Mild Unknown Verified 07/08/23 11:06 No Known Drug Allergies Allergy Unknown Verified 07/08/23 11:06 Consultations 09/19/23 16:25 ED Decision to Admit Stat 09/19/23 18:37 Consult Orthopedic Surgery Routine Ordered Studies 09/19/23 13:32 CT knee LT wo con Stat Knee X-Ray 09/19/23 12:12 XR knee LT 3V, XR tibia fibula LT 2V CLINICAL HISTORY: left leg pain, fall, cannot bear wt on leg COMPARISON STUDY: None. FINDINGS: Nondisplaced fracture at the lateral tibial plateau and a slightly impacted/displaced fracture within the left fibular head. There is associated moderate lipohemarthrosis within the left knee. The distal tibia and distal fibula are intact. IMPRESSION: 1. Nondisplaced lateral tibial plateau fracture. 2. Slightly impacted/displaced fracture within the left fibular head. 3. Moderate lipohemarthrosis within the left knee. ACT 112: Negative or not required by law. Electronically signed by: Romel De Los Santos M.D. 09/19/2023 1:07 PM Tibia/Fibula X-Ray 09/19/23 12:12 XR knee LT 3V, XR tibia fibula LT 2V CLINICAL HISTORY: left leg pain, fall, cannot bear wt on leg COMPARISON STUDY: None. FINDINGS: Nondisplaced fracture at the lateral tibial plateau and a slightly impacted/displaced fracture within the left fibular head. There is associated moderate lipohemarthrosis within the left knee. The distal tibia and distal fibula are intact. IMPRESSION: 1. Nondisplaced lateral tibial plateau fracture. 2. Slightly impacted/displaced fracture within the left fibular head. 3. Moderate lipohemarthrosis within the left knee. ACT 112: Negative or not required by law. Electronically signed by: Romel De Los Santos M.D. 09/19/2023 1:[address] 09/19/23 13:[address] DOSE: 390.75 mGy.cm HISTORY: Left knee pain. tibial plateau fracture TECHNIQUE: Multiaxial CT images of the left knee were performed and reformatted in the sagittal and coronal plane without the use of contrast. A dose lowering technique was utilized adhering to the principles of ALARA. COMPARISON: Left knee radiograph 09/19/2023. FINDINGS: The distal femur and patella appear intact. There is a moderate lipohemarthrosis. Soft tissue swelling within the left knee. Mild vascular calcifications are noted. There is again noted a comminuted and mildly depressed/displaced fracture involving the left fibular head. This demonstrates up to 3 mm of depression and 3 mm of medial displacement. There is also a comminuted fracture extending through the posterior aspect of the proximal tibia which involves the medial tibial plateau, lateral tibial plateau, and tibial spines. This extends into the proximal metaphysis of the left tibia. The lateral tibial plateau component demonstrates up to 4 mm of distraction and up to 2.6 mm of depression posteriorly. IMPRESSION: 1. Redemonstration of the comminuted and slightly displaced fractures involving the proximal tibia and proximal fibula as described above. 2. Moderate lipohemarthrosis. ACT 112: Negative or not required by law. Electronically signed by: Romel De Los Santos M.D. 09/19/2023 2:23 PM Chest X-Ray 09/19/23 15:53 XR chest 1V portable HISTORY: Preop evaluation. Left leg fracture. COMPARISON: None. FINDINGS: The cardiac silhouette is top normal in size. The lungs are clear. No pleural effusions. No pneumothorax. No evidence for pulmonary edema. No acute fractures. IMPRESSION: No acute process. ACT 112: Negative or not required by law. Electronically signed by: Romel De Los Santos M.D. 09/19/2023 4:53 PM 09/22/23 06:56 09/22/23 06:56 Hospital Course (1) Tibia/fibula fracture: LEFT Tibial plateau fracture + proximal left fibular fracture (mechanical fall, reports no dizziness or weakness at time of fall, denies hitting her head). CTleft knee: Comminuted and slightly displaced proximal tibia and proximal fibular fracture. Moderate lipohemarthrosis. Ortho Consult appreciated; seen by both Dr Mendoza earlier in the stay and today - Dr. Gonzalez - hinged knee brace recommended - Left leg non weight bearing - follow up in clinic with repeat xrays in 1 week - no planned surgical intervention Cont PT/OT, tylenol prn, etc 25-OH Vit D level 06/2023: 39.8 - patient reports taking Vit D at home, PO supplementation restarted (5000 IU daily) Doing well from ortho standpoint (2) Acute blood loss anemia: Hb 11.4 at admission Hb 9.2 today mild drop since admission - likely blood loss in the tissues of the left leg from the tib-fib fracture; lipohemarthrosis also seen on imaging of L knee no report of GI blood loss - no melena or BRBPR reported would benefit from ferrous sulfate daily x 1-2 months upon discharge, repeat CBC and iron panel in 4 to 6 weeks (3) Murmur: I cannot find any record of a prior murmur nor an echo Murmur could be outflow tract murmur due to acute anemia but it is fairly loud Will obtain echo for more information She does report getting dizzy with ascending steps but no other CV symptoms TTE resulted 09/22was normal echo. I did not hear a murmur on today's exam perhaps was a flow murmur related to some anemia summary: Normal LV systolic function, normal RV systolic pressure and function, no significant valvular heart disease (4) Hyperlipidemia: Cont Rosuvastatin (5) Hypertension: Noted on chart but patient denies history of this and reports her blood pressure is normal at home without medications. Chart review shows some intermittent hypertension, with baseline pressures in 120s. monitor. Plan VTE proph: discussed with orthopedics - ASA 325mg QD x 6 weeks f/u Dr Gonzalez, [facility] - 1 week post discharge dispo - [facility] Total Time Total Time Spent Total Time Spent (In Minutes): 40 minutes spent coordinating care for discharge Discharge Plan Discharge Items Patient Disposition: Transfer Inpatient Rehab Fac Reason For Visit: L TIB/FIB FXR Discharge Diagnosis: Left tib/fib fracture, nonoperative Activity: Per Instructions section Weightbearing: Left non-weightbearing Weightbearing Comment: Nonweightbearing LLE x 6 weeks, wear hinged knee brace when out of bed Non-emergency contact: Primary Care Provider Call non-emergency contact if: you have any medication questions and your symptoms worsen Follow-up/Referrals: Angie English MD [Primary Care Provider] - Rj Gonzalez DO [Physician] - (follow up in one week) [facility] [Non-Staff] - () Diet: Regular Addtl Attending Provider Instructions: PT and OT evaluation and treatment Recommendations per orthopedics: "nonoperative treatment for now. She has already been placed in a hinged knee brace. She may do gentle range of motion of her knee with the brace in place at all times. She is to remain strictly nonweightbearing on that left leg. She will need physical therapy for gait training with walker use to remain nonweightbearing on that left leg... follow-up in orthopedics clinic with repeat x-rays within 1 week to assess for any displacement of this fracture" Recommend oral iron replacement for 4 weeks for acute blood loss anemia due to fracture Pending Studies at Discharge: Yes Studies:: Echocardiogram to evaluate asymptomatic murmur - report is pending Stand-Alone Forms: My [facility] Skilled Items Patient informed of condition?: Yes DNR: No Discharge Level of Care: Acute rehab Communicable Disease: No Discharge Prognosis: Improving Lines: None Urinary Catheter: No Medications and DC Order Prescriptions: New acetaminophen 325 mg Tablet 650 mg PO Q4H PRNQty: 0 0RF aspirin [Ecotrin] 325 mg Tablet,Delayed Release (Dr/Ec) 325 mg PO QAM Qty: 0 0RF ferrous sulfate 325 mg (65 mg iron) Tablet,Delayed Release (Dr/Ec) 325 mg PO QAM Qty: 0 0RF cholecalciferol (vitamin D3) 125 mcg (5,000 unit) Tablet 5,000 unit PO QAM Qty: 0 0RF Continued calcium carbonate [Calcium 600] 600 mg calcium (1,500 mg) Tablet 600 mg PO BID rosuvastatin 5 mg tablet 5 mg PO QAM Discontinued acetaminophen [Tylenol] 325 mg capsule 325 mg PO QID PRN (Reason: pain/fever) Discharge Orders: Discharge Order (Routine); Ordered 09/22/23 Ordered By: Portia Hutton Admission Data Admit Date/Time: 09/19/23 16:19 Attending Provider: Portia Hutton Admit Provider: Gonzales Freeamn Primary Care Provider: Angie English Other Providers: Gonzales Freeman; Mathew Black; Clau Serrano; Vanessa Cantor; Dilshad Barajas; Raiza Chu; Zana Antonio; Chrissy Wade; Wu Michaud; Rj Mir; Yoli Goodwin; Rj Gonzalez; Genaro Zimmer; [facility] Other Interventions: Discharge Summary Assessment (RN) Last Done: 09/22/23 12:25 Coding Level of Care Code 54883 INP/OBS DISCH >30 MIN Diagnoses Tibia/fibula fracture S82.209A; S82.409A Acute blood loss anemia D62 Murmur R01.1 Hyperlipidemia E78.5 Hypertension I10
== END 2023-09-22 12:27 | DRG 544 ==
LOC: ED 11:39 → SUATTDRO 16:19 → 3N 16:19